=== PATIENT | female | born 1945 | race Caucasian/White ===

== ENCOUNTER 2021-07-07 09:07 | Outpatient (CLI) | payer MEDICARE, SELFPAY ==
--- NOTE | ~2021-07-07 | PE_ITS ---
EXAMINATION: PET skull to mid thigh DATE: 07/07/2021 11:28 INDICATION: Pulmonary nodules. TECHNIQUE: Blood glucose level was 82 mg/dL. 8.257 mCi of 18-fluorodeoxyglucose (18-FDG) was administ ered i.v. Low dose computed tomography (CT) images were acquired from the base of the brain to the pr oximal thighs for attenuation correction and anatomic localization. Automated exposure control was em ployed. Dose-length product (DLP) was 933 mGy-cm. Positron emission tomography (PET) images were acqu ired in the same distribution. COMPARISON: None FINDINGS: Head/neck: There are no pathologically enlarged lymph nodes. There is increased activity in the oral cavity, oropharynx, and major salivary glands without abnormal CT correlate, likely physiologic. Chest: There is mild emphysema. There is mild scarring at the lung apices. There is a 9 mm nodule in posterior segment right upper lobe with maximum SUV of 2.3. There is a 9 mm nodule with background ac tivity in right upper lobe, probably benign. No pleural effusion. The heart size is normal. There are coronary artery calcifications. No pericardial effusion. There is a stent in proximal right subclavi an artery. There may be a stent in proximal left subclavian artery. Abdomen/pelvis/proximal thighs: The liver and spleen are normal. There are changes of cholecystectomy . The pancreas, adrenal glands, and right kidney are normal. There is a 10 mm cyst in left kidney. Th ere are no dilated loops of bowel. There is diverticulosis of the colon without evidence of diverticu litis. There are no pathologically enlarged lymph nodes. There is no free intraperitoneal fluid. Ther e is a right hip arthroplasty. IMPRESSION: 1. 9 mm right upper lobe pulmonary nodule with maximum SUV of 2.3, which is indeterminate for malign elise. Consider CT-guided biopsy or 3-month follow-up noncontrast chest CT. Reviewed, dictated and finalized at location A. IMPRESSION: 1. 9 mm right upper lobe pulmonary nodule with maximum SUV of 2.3, which is in determinate for malignancy. Consider CT-guided biopsy or 3-month follow-up nonc ontrast chest CT.
[2021-07-07 10:00] LABS: Glucose Point of Care 82 mg/dl (65-105)
== END 2021-07-07 09:08 | disposition home or self-care (01) ==
PROVIDERS: PCP Internal Medicine
DX: R91.8 Other nonspecific abnormal finding of lung field (principal)
CPT/HCPCS: 78815; A9552

== ENCOUNTER 2021-07-08 14:41 | Outpatient (CLI) | payer MEDICARE, SELFPAY ==
[2021-07-08 15:04] LABS: Basophils Percent Auto 0.4 % (0.2-1.2); Eosinophils Absolute Auto 0.2 K/mm3 (0-0.3); Eosinophils Percent Auto 2.5 % (0-4.4); Hematocrit 26.1 % (37.0-47.0); Hemoglobin 7.9 g/dL (12.0-15.0); Immature Granulocyte Absolute 0.03 K/mm3 (0.00-0.031); Immature Granulocyte Percent A 0.4 % (0-0.5); Lymphocytes Absolute Auto 2.11 K/mm3 (0.9-3.2); Lymphocytes Percent Auto 27.3 % (18.3-44.2); Mean Corpuscular HGB Conc 30.3 g/dl (32-36); Mean Corpuscular Hemoglobin 29.9 pg (26-34); Mean Corpuscular Volume 98.9 fl (80-100); Mean Platelet Volume 10.3 fl (7.4-10.4); Monocytes Absolute Auto 0.7 K/mm3 (0.1-0.6); Monocytes Percent Auto 8.4 % (2.6-8.5); Neutrophils Absolute Auto 4.7 K/mm3 (1.3-6.7); Platelet Count Result 337 k/mm3 (150-375); Red Blood Count 2.64 M/mm3 (4.2-5.4); White Blood Count 7.7 K/mm3 (4.5-10.0)
[2021-07-08 16:10] LABS: Iron 55 ug/dL (37-170)
[2021-07-08 16:16] LABS: Alanine Aminotransferase 14 U/L (4-35); Albumin Level 4.4 g/dL (3.5-5.1); Alkaline Phosphatase 79 U/L (38-126); Anion Gap 10 mmol/L (8-16); Aspartate Amino Transferase 44 U/L (14-36); Bilirubin,Total 0.4 mg/dL (0.2-1.3); Blood Urea Nitrogen 17 mg/dL (7-17); Calcium 9.1 mg/dL (8.4-10.2); Carbon Dioxide 29 mmol/L (22-30); Chloride 105 mmol/L (98-107); Estimated Glomerular Filt Rate 49; Glucose 101 mg/dL (65-110); Lactate Dehydrogenase 484 U/L (313-618); Potassium 4.4 mmol/L (3.4-5.0); Sodium 144 mmol/L (137-145)
[2021-07-08 16:19] LABS: Percent Iron Saturation 16 % (20-50)
[2021-07-08 17:20] LABS: Folic Acid 15.9 ng/mL (2.76->20)
== END 2021-07-08 14:42 | disposition home or self-care (01) ==
LOC: ANHLAB 14:47
PROVIDERS: PCP Internal Medicine; Visit Provider Internal Medicine Hematology & Oncology
DX: D64.9 Anemia, unspecified (principal)
CPT/HCPCS: 36415; 80053; 82607; 82728; 82746; 83540; 83550; 83615; 85025

== ENCOUNTER 2021-09-20 10:32 | Outpatient (CLI) | payer MEDICARE, SELFPAY ==
--- NOTE | ~2021-09-20 | CT_ITS ---
EXAMINATION: CT diagnostic chest wo con DATE: 09/20/2021 10:58 INDICATION: Lung nodule TECHNIQUE: Computed tomography (CT) of the chest was performed without intravenous contrast. The dose -length product (DLP) was 129.84 mGy-cm. Automated exposure control and iterative reconstruction tech [employer] Managementque were employed. COMPARISON: PET/CT, 07/07/2021 FINDINGS: There is a persistent 10 mm nodule in the posterior segment of the right upper lobe on imag e 29. Also seen is a stable 9 mm pleural-based nodule of the posterior medial right upper lobe on michael ge 32. There is mild emphysema. No pleural effusion or pneumothorax is identified. The heart size is normal. There are no pathologically enlarged thoracic lymph nodes. Trace pericardial effusion is note d. The gallbladder is surgically absent. Calcified atherosclerosis is noted. There is mild thoracic s pondylosis. IMPRESSION: 1. Persistent nodule in the posterior segment of the right upper lobe which demonstrated low FDG upta ke on recent PET/CT. CT-guided biopsy is recommended. Reviewed, dictated and finalized at location A. NESS OBJECTS REPORT DEVELOPER IMPRESSION: 1. Persistent nodule in the posterior segment of the right upper lobe which dem onstrated low FDG uptake on recent PET/CT. CT-guided biopsy is recommended.
== END 2021-09-20 10:33 | disposition home or self-care (01) ==
LOC: ANHIMG 10:35
PROVIDERS: PCP Internal Medicine; Visit Provider Internal Medicine Hematology & Oncology
DX: R91.1 Solitary pulmonary nodule (principal); M47.814 Spondylosis without myelopathy or radiculopathy, thoracic region
CPT/HCPCS: 71250

== ENCOUNTER → 2021-10-01 00:21 | Outpatient (CLI) | payer MEDICARE, SELFPAY ==
[2021-10-01 17:23] LABS: SARS-CoV-2 RNA PCR Negative (Negative)
== END ==
PROVIDERS: Radiology Diagnostic Radiology; PCP Internal Medicine; Visit Provider Internal Medicine Hematology & Oncology
DX: Z01.812 Encounter for preprocedural laboratory examination (principal); Z20.822 Contact with and (suspected) exposure to COVID-19
CPT/HCPCS: C9803; U0003; U0005

== ENCOUNTER 2021-10-04 09:08 | Outpatient (CLI) | payer MEDICARE, SELFPAY ==
[2021-09-28 12:03] VITALS: BMI 30.4
--- NOTE | 2021-09-28 12:10 | PC.NURSE ---
Report to the Outpatient Waiting Room, entrance under the green pavilion located off [facility], at time _0900 on date _10/04/21 . OR Time: __1100 . - You and your visitor will be asked a series of questions to screen for COVID 19 for your protection. - A mask is required within the hospital. - Only one visitor is allowed at this time. Patient visitors will be guided where to wait when not with patient. Preoperative COVID Testing Requirements: No COVID Test needed if: (proof is required; if not received patient will have Rapid Test prior to entry) - Patient has received COVID Vaccine at least 14 days prior to procedure date or COVID TESTING 10/01/21 AT 0950 - Patient has positive COVID test result within last 90 days of surgery date. COVID Test needed if above criteria is not met If not COVID vaccinated a COVID test must be conducted within 72 hours of surgery and patient is asked to isolate self from time of testing until procedure. You will go to the [facility] for your COVID testing. The [facility] site is located at the corner of [address] [facility]. You will only be called if COVID results are positive and your surgeon may reschedule your elective surgery date. Patients may have clear liquids (water, carbonated beverages, clear teas, apple juice) until 3 hours prior to surgery with a maximum of 20 ounces. - No food from midnight until time of surgery - Infants may have breast milk until 4 hours before surgery, infant formula 6 hours prior to surgery. - Children will be allowed to drink immediately following surgery. If applicable, please bring a bottle or sippy cup to assist with drinking. Juice, water, soda, and popsicles are readily available. For infants on formula, please bring formula the day of surgery. Pacifiers are allowed. Take the following medications with a SIP of water the morning of surgery: __ALL ROUTINE AM MEDS Medications to discontinue per physician ___ASPIRIN STOP 7 DAYS PRE OP AND PLAVIX 5 DAYS PRE OP Date to take last dose Please no make-up, nail ethiopian, hairspray, perfume, deodorant, or body powder the day of surgery. No jewelry (including any body piercings) or valuables the day of surgery, leave them at home. Please take a shower or bath the night before, or the morning of, surgery with an antibacterial soap. Wear comfortable, loose fitting clothing. Children are encouraged to wear pajamas. - Jewelry must be removed prior to entering the operating room. Rings and piercings that are not removed may be cut off. - The hospital will not accept responsibility for valuables. - Please leave all valuables, including medications, at home the day of surgery. If you are going home after surgery, a licensed special education bus driver must drive you home. - NO public transportation without another adult. - We recommend that an adult stay with you for 24 hours following discharge. - We also recommend that you do not drive, make important decision, drink alcoholic beverages, or take any drugs that were not prescribed by your health care provider for at least 24 hours after your discharge time. For Pediatric surgeries, we recommend two adults accompany the child home (only one inside the building at this time). Follow any additional instructions given to you from your surgeon. Telephone instructions given to _PATIENT and asked if any additional questions and then verbalized understanding. Patient advised to call surgeon office or pre surgery nurse liaison [phone] if any additional questions.
[2021-10-04] VITALS (11 sets, daily range): BP systolic 125–151; BP diastolic 37–88; PULSE 73–87; RESP 20; TEMP 36.4–36.6; O2SAT 94–100
--- NOTE | ~2021-10-04 | XR_ITS ---
EXAMINATION: XR chest 1V DATE: 10/04/2021 12:23 INDICATION: Right lung nodule status post percutaneous biopsy. TECHNIQUE: A single frontal view of the chest was obtained. COMPARISON: Chest CT 09/20/2021 FINDINGS: There is a nodule in right upper lobe. No pleural effusion or pneumothorax. The heart size is normal. IMPRESSION: 1. Nodule in right lung upper lobe, consistent with postbiopsy hemorrhage. Reviewed, dictated and finalized at location A. RVISOR POLISHING
--- NOTE | ~2021-10-04 | XR_ITS ---
EXAMINATION: XR chest 1V portable DATE: 10/04/2021 15:04 INDICATION: Right lung nodule status post percutaneous biopsy. TECHNIQUE: A single frontal view of the chest was obtained. COMPARISON: Chest single view at 2:03 PM FINDINGS: There is a nodule in right lung upper lobe. No pleural effusion or pneumothorax. The heart size is normal. Surgical clips in the right upper quadrant are likely from cholecystectomy. IMPRESSION: 1. Nodule in right lung upper lobe, consistent with postbiopsy hemorrhage. Reviewed, dictated and finalized at location A. TRONICS PROCESSING SUPERVISOR
--- NOTE | ~2021-10-04 | XR_ITS ---
XR chest 1V portable 10/04/2021 14:19 Indication: Post image guided lung biopsy Procedure: AP portable chest Comparison: Chest dated 10/04/[address] dated 09/20/2021 Findings: There is a nodule in the right upper lobe. Heart size upper normal for technique. There is atherosclerosis. No pneumothorax identified. No significant effusion. Impression: 1: No pneumothorax post biopsy. 2: Ill-defined nodule right upper thorax, consistent with postbiopsy hemorrhage. Reviewed, dictated and finalized at location A. MA HAT SMEARER Impression: 1: No pneumothorax post biopsy. 2: Ill-defined nodule right upper thorax, consistent with postbiopsy hemorrhage .
--- NOTE | ~2021-10-04 | CT_ITS ---
EXAMINATION: CT biopsy lung w/imaging DATE: 10/04/2021 12:38 INDICATION: Right lung nodule. TECHNIQUE: The procedure including the risks, benefits, and alternatives and possibility of chest tub e placement were discussed with the patient. Risks discussed included infection, approximately 1/20 r isk of symptomatic hemorrhage beyond mild hemoptysis, approximately 1/3 risk of pneumothorax, approxi mately 1/10 risk of pneumothorax severe enough to warrant chest tube placement, and rarely . The patient understood the risks and agreed to proceed. The patient was placed prone. The skin overlyin g the right chest was prepped and draped in sterile fashion. Anesthetic was administered with 1% lid ocaine subcutaneously. A 19 gauge outer needle was advanced under CT guidance to the lesion of inter est. A 20 gauge core biopsy needle was then used to obtain 3 core biopsy specimens. The needle was re moved and the entry site was cleaned and dressed. The mA was adjusted according to patient size. Iter ative reconstruction technique was employed. The dose-length product was 146.31 mGy-cm. There were n o immediate complications. FINDINGS: CT images demonstrate the outer needle tip adjacent to an 11 mm nodule in right lung upper lobe. IMPRESSION: 1. CT-guided core needle biopsy of a nodule in right lung upper lobe. Reviewed, dictated and finalized at location A. ENGINEER
[2021-10-04 10:22] LABS: Mean Platelet Volume 10.1 fl (7.4-10.4); Platelet Count Result 335 k/mm3 (150-375)
[2021-10-04 11:03] LABS: INR 0.9; Prothrombin Time 12.5 Seconds (11.1-14.7)
--- NOTE | 2021-10-04 15:15 | SUR.PHASEII ---
PER DR FERREIRA SECOND XRAY RESULTED AND PATIENT IS SAFE TO DISCHARGE
== END 2021-10-04 15:40 | disposition home or self-care (01) ==
PROVIDERS: PCP Internal Medicine; Visit Provider Radiology Diagnostic Radiology
PROC: BB24ZZZ Computerized Tomography (CT Scan) of Bilateral Lungs (ICD-10-PCS; CPT 32408; principal; 2021-10-04 11:00)
DX: C34.11 Malignant neoplasm of upper lobe, right bronchus or lung (principal); R91.1 Solitary pulmonary nodule; Z51.81 Encounter for therapeutic drug level monitoring; Z79.899 Other long term (current) drug therapy
CPT/HCPCS: 32408; 36415; 71045; 85049; 85610; 88305; 88342; C9803; U0003; U0005

== ENCOUNTER 2022-05-18 10:39 | Outpatient (CLI) | payer MEDICARE, SELFPAY ==
--- NOTE | ~2022-05-18 | PE_ITS ---
EXAMINATION: PET skull to mid thigh DATE: 05/18/2022 12:32 INDICATION: Malignant neoplasm of upper lobe of right lung. TECHNIQUE: Blood glucose level was 101 mg/dL. 9.111 mCi of 18-fluorodeoxyglucose (18-FDG) was adminis tered i.v. Low dose computed tomography (CT) images were acquired from the base of the brain to the p roximal thighs for attenuation correction and anatomic localization. Automated exposure control was e mployed. Dose-length product (DLP) was 756 mGy-cm. Positron emission tomography (PET) images were acq uired in the same distribution. COMPARISON: PET CT 07/07/2021, chest CT 09/20/2021 FINDINGS: Head/neck: There is increased activity in the oropharynx, larynx, and major salivary glands with joleen on artifact at the glottis, likely physiologic. There are no pathologically enlarged lymph nodes. Chest: There are changes of right upper lobectomy. There is mild atelectasis in right middle lobe and lingula. No pleural effusion. The heart size is normal. No pericardial effusion. There is a stent in proximal right subclavian artery. There are no pathologically enlarged lymph nodes. Abdomen/pelvis/proximal thighs: There is diffuse hepatic steatosis. The spleen is normal. There are c hanges of cholecystectomy. The pancreas, adrenal glands, and kidneys are normal. There are no dilated loops of bowel. There are no pathologically enlarged lymph nodes. There is no free intraperitoneal f luid. There is a right hip arthroplasty. There is no osseous malignancy. IMPRESSION: 1. No evidence of metastatic disease. Reviewed, dictated and finalized at location A.
[2022-05-18 11:14] LABS: Glucose Point of Care 101 mg/dl (65-105)
== END 2022-05-18 10:40 | disposition home or self-care (01) ==
PROVIDERS: PCP Internal Medicine; Visit Provider Internal Medicine Hematology & Oncology
DX: Z03.89 Encounter for observation for other suspected diseases and conditions ruled out (principal); C34.11 Malignant neoplasm of upper lobe, right bronchus or lung; K76.0 Fatty (change of) liver, not elsewhere classified
CPT/HCPCS: 78815; A9552

== ENCOUNTER 2024-05-12 13:02 | Outpatient (CLI) | payer MEDICARE, SELFPAY ==
--- NOTE | ~2024-05-12 | CT_ITS ---
EXAMINATION: CT diagnostic chest wo con DATE: 05/12/2024 13:46 INDICATION: MALIGNANT NEOPLASM OF UPPER LOBE OF RIGHT LUNG TECHNIQUE: Computed tomography (CT) of the chest was performed right upper lobe lung cancer intraveno us contrast. Additional 3D reconstructions utilizing coronal maximum intensity projection (MIP) were performed. Automated exposure control and iterative reconstruction technique were employed. The dose- length product was 202.30 mGy-cm. COMPARISON: PET/CT dated 05/18/2022 FINDINGS: Postoperative change of prior right upper lobectomy. There is chronic mild discoid atelectasis in the right middle lobe along the minor fissure. No suspicious pulmonary nodules, pneumonia, pulmonary bhumika ma or pleural effusion. Heart size is normal. Atherosclerotic coronary artery calcifications. No donna cardial effusion. Prominent atherosclerotic calcifications along the normal caliber thoracic aorta wi th approximately 40 % stenosis along the mid descending aorta, 50% stenosis at the innominate artery and 60% stenosis at the left subclavian artery. Assessment of the true patent lumen is however limite d in the absence of intravenous contrast and stenosis could be more severe. Stenting of the right sub clavian artery. No pathologically enlarged thoracic lymphadenopathy. Cholecystectomy clips the gallbl adder fossa. Visualized upper abdomen is otherwise unremarkable. Moderate thoracic spondylosis. IMPRESSION: 1. Status post right upper lobectomy for reported lung cancer with no evident residual, recurrent or metastatic disease. 2. Prominent atherosclerotic calcifications with potentially hemodynamically significant stenosis at the mid thoracic aorta, innominate artery and left subclavian artery. Reviewed, dictated and finalized at location A. IMPRESSION: 1. Status post right upper lobectomy for reported lung cancer with no evident r esidual, recurrent or metastatic disease. 2. Prominent atherosclerotic calcifications with potentially hemodynamically si gnificant stenosis at the mid thoracic aorta, innominate artery and left subcla vian artery.
[2024-05-12 14:43] LABS: Basophils Absolute Auto 0.1 K/mm3 (0.0-0.1); Basophils Percent Auto 0.5 % (0.2-1.2); Eosinophils Absolute Auto 0.3 K/mm3 (0-0.3); Eosinophils Percent Auto 2.6 % (0-4.4); Hematocrit 34.5 % (37.0-47.0); Hemoglobin 10.8 g/dL (12.0-15.0); Immature Granulocyte Absolute 0.06 K/mm3 (0.00-0.031); Immature Granulocyte Percent A 0.6 % (0-0.5); Lymphocytes Absolute Auto 2.36 K/mm3 (0.9-3.2); Lymphocytes Percent Auto 22.3 % (18.3-44.2); Mean Corpuscular HGB Conc 31.3 g/dl (32-36); Mean Corpuscular Hemoglobin 31.6 pg (26-34); Mean Corpuscular Volume 100.9 fl (80-100); Monocytes Absolute Auto 0.8 K/mm3 (0.1-0.6); Monocytes Percent Auto 7.6 % (2.6-8.5); Neutrophils Percent Auto 66.4 % (45.5-73.1); Platelet Count Result 380 k/mm3 (150-375); Red Blood Count 3.42 M/mm3 (4.2-5.4); Red Cell Distribution Width 12.2 % (11.5-14.5); White Blood Count 10.6 K/mm3 (4.5-10.0)
[2024-05-12 14:57] LABS: Alanine Aminotransferase 14 U/L (6-35); Albumin Level 4.8 g/dL (3.5-5.1); Alkaline Phosphatase 62 U/L (38-126); Anion Gap 14 mmol/L (4-12); Aspartate Amino Transferase 36 U/L (14-36); Bilirubin,Total 0.8 mg/dL (0.2-1.3); Blood Urea Nitrogen 50 mg/dL (7-17); Calcium 9.1 mg/dL (8.4-10.2); Carbon Dioxide 29 mmol/L (22-30); Chloride 98 mmol/L (98-107); Estimated Glomerular Filt Rate 31; Glucose 89 mg/dL (65-110); Potassium 4.4 mmol/L (3.4-5.0); Sodium 141 mmol/L (137-145)
[2024-05-12 15:11] LABS: Iron 85 ug/dL (37-170)
[2024-05-12 15:22] LABS: Percent Iron Saturation 24 % (20-50)
[2024-05-12 16:12] LABS: Folic Acid 15.7 ng/mL (2.76->20)
== END 2024-05-12 13:03 | disposition home or self-care (01) ==
PROVIDERS: PCP Internal Medicine; Visit Provider Internal Medicine Hematology & Oncology
DX: C34.11 Malignant neoplasm of upper lobe, right bronchus or lung (principal); N18.32 Chronic kidney disease, stage 3b; D63.1 Anemia in chronic kidney disease; I70.0 Atherosclerosis of aorta; Z90.2 Acquired absence of lung [part of]
CPT/HCPCS: 36415; 71250; 80053; 82607; 82728; 82746; 83540; 83550; 85025

== ENCOUNTER 2024-11-24 11:05 | Outpatient (CLI) | payer MEDICARE, SELFPAY ==
--- NOTE | ~2024-11-24 | CT_ITS ---
CT Scan of the Chest without Contrast: Clinical Indication: Lung cancer Technique: Contiguous sections were acquired throughout the chest without intravenous contrast. Dose reduction technique was used on this scan by utilizing automated exposure control and iterative recon struction technique. The dose-length product (DLP) was 387.75 mGy-cm. COMPARISON: 05/12/2024 Findings: There is no evidence of any significant mediastinal, hilar or axillary lymphadenopathy. There are ext ensive atherosclerotic calcifications of the aorta and great vessels. Coronary artery calcifications are present.. No pleural effusions. Minimal pericardial effusion present. Status post right upper lobectomy with mild postoperative distortion the right lung. No suspicious no dule seen. No consolidation evident. Images through the upper abdomen reveal no abnormalities. Impression: No evidence for active malignancy or metastatic disease. Status post right upper lobectomy. Extensive atherosclerotic disease, as above. Minimal pericardial effusion. Reviewed, dictated and finalized at [facility]. K MANAGER Impression: No evidence for active malignancy or metastatic disease. Status post right uppe r lobectomy. Extensive atherosclerotic disease, as above. Minimal pericardial effusion.
--- OUTSIDE RECORDS SUMMARY | 2024-11-24 12:04 | XMS_ITS | Clinical Summary ---
Author Organization [facility] Address [address] [place] [address] Care Team Providers Care Pantograph I Engraver Name Role Phone Unavailable Primary Care Provider Unavailabl e Source Comments [facility],non-owned Affiliates and Associated Physician Practices is amultiple site organization consisting of ambulatory clinics and hospital sitesin [place] and [place]. This disclosure is being madepursuant to the Care Everywhere program and may not contain all information available regarding this patient. Last updated 18.[facility] Allergies Active Allergy Reactions Criticality Noted Date Comments Acetaminophen-Codeine Nausea and/or Vomiting vomiting Medications * Be aware that medications may not be up to date on this document. Alwaysverify current medications with the patient. Medication Sig Dispensed Refills Start Date End Date Status metoprolol tartrate (LOPRESSOR) 25 MG tablet 25 mg 2 times daily 08/05/2018 Active Cholecalciferol (D-5000) 5000 units Take 5,000 Units by mouth once daily 02/26/2017 Active loratadine (CLARITIN) 10 MG tablet Take 10 mg by mouth once daily 02/22/2017 Active aspirin (ASPIRIN) 81 MG tablet Take 81 mg by mouth once daily Active amLODIPine (NORVASC) 5 MG tablet Take 1 tablet by mouth once daily 11 06/28/2019 Active clopidogrel (PLAVIX) 75 MG tablet TAKE 1 TABLET BY MOUTH EVERY DAY 90 tablet 06/07/2020 Active Active Problems Problem Noted Date Diagnosed Date Stenosis of left subclavian artery 06/26/2019 Family History Medical History Relation Name Comments Renal Disease Brother CAD (Coronary Artery Disease) Father CVA Father CAD (Coronary Artery Disease) Mother CVA Mother Diabetes - Type 2 Mother Other Mother heart attack/fa ilure Relation Name Status Comments Brother Father Mother Social History Tobacco Use Types Packs/Day Years Used Date Smoking Tobacco: Former Smokeless Tobacco: Never Alcohol Use Standard Drinks/Week Comments Never 0 (1 standard drink = 0.6 oz pur e alcohol) AUDIT-C Answer Date Recorded Frequency of Alcohol Consumption Never 06/11/2019 Average Number of Drinks Not on file 019 Frequency of Binge Drinking Not on file 05/16 Sex and Gender Information Value Date Recorded Sex Assigned at Not on file Gender Identity Not on file Sexual Orientation Not on file Last Filed Vital Signs Vital Sign Reading Time Taken Comments Blood Pressure 139/52 06/27/2019 9:07 AM CDT Pulse 85 06/27/2019 9:07 AM CDT Temperature 37.1 C (98.7 F) 06/27/2019 8:57 AM CDT Respiratory Rate 20 06/27/2019 8:57 AM CDT Oxygen Saturation 95% 06/27/2019 8:57 AM CDT Inhaled Oxygen Concentration - - Weight 81.2 kg (179 lb) 07/10/2019 12:19 PM CDT Height 160 cm (5' 3 ) 07/10/2019 12:19 PM CDT Body Mass Index 31.71 07/10/2019 12:19 PM CDT Plan of Treatment Health Maintenance Due Date Last Done Comments BONE DENSITY TESTING 1945 HEPATITIS C SCREENING 03/03/1965 DTAP/TDAP/TD VACCINES (1 - Tdap) 1966 PNEUMOCOCCAL VACCINE 50+ (1 of 1 - PCV) 1997 ZOSTER VACCINE (1 of 2) 1997 Respiratory Syncytial Virus (RSV) Vaccine Pt: or over 60 yrs (1 - 1-dose 75+ series) 2022 COVID-19 VACCINE ( - 2023-2 5 season) 2024 INFLUENZA VACCINE (#1) 2024 DEPRESSION SCREENING 10/15/2024 MEDICARE AWV CALENDAR YEAR 2024 HEPATITIS B VACCINE Aged Out No longe r eligible based on patient's age to complete this topic HIB VACCINE Aged Out No longer eligi ble based on patient's age to complete this topic HPV VACCINE Aged Out No longer eligi ble based on patient's age to complete this topic MENINGOCOCCAL (Group B) VACCINE Aged Out No longer eligible based on patient's age to complete this topic MENINGOCOCCAL VACCINE Aged Out No vee harmony eligible based on patient's age to complete this topic
--- OUTSIDE RECORDS SUMMARY | 2024-11-24 12:04 | XMS_ITS | Patient Health Summary ---
Author Organization [facility] Address [address] [place] [address] Care Team Providers Care Automatic Hemmer Name Role Phone Unavailable Primary Care Provider Unavailabl e Note from [facility],non-owned Affiliates and Associated Physician Practices is amultiple site organization consisting of ambulatory clinics and hospital sitesin [place], [place], [place] and [place]. This disclosure is being madepursuant to the Care Everywhere program and may not contain all information available regarding this patient. Last updated 18.[facility] Allergies * Acetaminophen-Codeine(Nausea and/or Vomiting) Medications * Be aware that medications may not be up to date on this document. Alwaysverify current medications with the patient. * metoprolol tartrate (LOPRESSOR) 25 MG tablet(Started 08/05/2018) 25 mg 2 times daily * Cholecalciferol (D-5000) 5000 units(Started 02/26/2017) Take 5,000 Units by mouth once daily * loratadine (CLARITIN) 10 MG tablet(Started 02/22/2017) Take 10 mg by mouth once daily * aspirin (ASPIRIN) 81 MG tablet Take 81 mg by mouth once daily * amLODIPine (NORVASC) 5 MG tablet(Started 06/28/2019) Take 1 tablet by mouth once daily 11 refills left * clopidogrel (PLAVIX) 75 MG tablet(Started 06/07/2020) TAKE 1 TABLET BY MOUTH EVERY DAY Active Problems Problem Noted Date Diagnosed Date Stenosis of left subclavian artery 06/26/2019 Social History Tobacco Use Types Packs/Day Years [...] Mass Index 31.71 07/10/2019 12:19 PM CDT Procedures * CARDIAC RHYTHM STRIP ORDER(Performed 06/30/2019) * IR CAROTID CEREBRAL ANGIOGRAM(Performed 06/26/2019) Performed for Stenosis of left subclavian artery (HCC) * PT-INR(Performed 06/26/2019) Performed for Stenosis of left subclavian artery (HCC) * BASIC METABOLIC PANEL (CALCIUM TOTAL)(Performed 06/26/2019) Performed for Stenosis of left subclavian artery (HCC) * CBC W AUTO DIFFERENTIAL(Performed 06/26/2019) Performed for Stenosis of left subclavian artery (HCC) Results * CARDIAC RHYTHM STRIP ORDER (06/30/2019 4:22 PM CDT) Narrative 06/30/2019 4:22 PM CDT Ordered by an unspecified provider. Scanned Document CARDIAC SERVICES ORD ERABLES * IR CAROTID CEREBRAL ANGIOGRAM (06/26/2019 11:21 AM CDT) Anatomical Region Laterality Modality Head X-Ray Angiograph y Narrative 06/30/2019 3:23 PM CDT No Dictation. Boo Castanon MD IR ORDERABLES * PT-INR (06/26/2019 8:52 AM CDT) PT 10.0 9.5 - 11.6 sec 06/26/2019 9:17 AM CDT [facility] INR 1.0 0.9 - 1.1 06/26/2019 9:17 AM CDT [facility] Blood BLOOD SPECIMEN / Unknown Venipuncture / Unknown 06/26/2019 8:52 AM CDT 06/26/2019 9:01 AM CDT [facility] LABORATORY - 06/26/2019 9:17 AM CDT Conventional Warfarin Anticoagulant Therapy: INR Reference Range: 2.0-3.0 Intensive Warfarin Anticoagulant Therapy: INR Reference Range: 2.5-3.5 Boo Castanon MD LAB - COAGULATION OR DERABLES Performing Organization Address City/State/[facility] Co de Phone Number [facility] [address] [place] [address] * (ABNORMAL) CBC W AUTO DIFFERENTIAL (06/26/2019 8:52 AM CDT) [facility] WBC 7.6 4.4 - 10.7 x10E9/L 06/26/2019 9:05 AM T [facility] WBC Corrected 06/26/2019 9:05 AM T [facility] RBC 3.78(L) 3.80 - 5.20 x10E12/L 06/26/2019 9:05 AM CDT [facility] Hemoglobin 11.3(L) 12.0 - 15.6 gm/dL 06/26/2019 9:05 AM T [facility] Hematocrit 37.2 35.9 - 45.5 % 06/26/2019 9:05 AM CDT [facility] MCV 98.4(H) 80.7 - 98.3 fl 06/26/2019 9:05 AM CDT [facility] MCH 29.9 26.7 - 34.0 pg 06/26/2019 9:05 AM CDT [facility] MCHC 30.4(L) 30.8 - 35.9 gm/dL 06/26/2019 9:05 AM CDT [facility] Platelet Count 284 153 - 416 x10E9/L 06/26/2019 9:05 AM CDT [facility] RDW-CV 12.3 12.1 - 14.9 % 06/26/2019 9:05 AM CDT [facility] MPV 10.1 9.4 - 12.9 fl 06/26/2019 9:05 AM CDT [facility] Neutrophils % 63.8 44.0 - 73.0 % 06/26/2019 9:05 AM CDT [facility] Lymphocytes % 22.8 20.0 - 43.0 % 06/26/2019 9:05 AM CDT [facility] Monocytes % 8.5 5.0 - 13.0 % 06/26/2019 9:05 AM CDT [facility] Eosinophils % 4.1 0.0 - 6.0 % 06/26/2019 9:05 AM CDT [facility] Basophils % 0.5 0.0 - 2.0 % 06/26/2019 9:05 AM CDT [facility] Immature Granulocytes 0.3 0 - 1 % 06/26/2019 9:05 AM CDT [facility] Neutrophil Absolute 4.86 2.01 - 7.14 x10E9/L 06/26/2019 9:05 AM CDT [facility] Lymphocytes Absolute 1.74 1.07 - 3.94 x10E9/L 06/26/2019 9:05 AM CDT [facility] Monocytes Absolute 0.65 0.26 - 1.07 x10E9/L 06/26/2019 9:05 AM CDT [facility] Eosinophils Absolute 0.31 0 - 0.47 x10E9/L 06/26/2019 9:05 AM CDT [facility] Basophils Absolute 0.04 0 - 0.08 x10E9/L 06/26/2019 9:05 AM CDT [facility] Immature Granulocytes Absolute 0.02 0.00 - 0.06 x10E9/L 06/26/2019 9:05 AM CDT [facility] nRBC Auto 0 /100 WBC 06/26/2019 9:05 AM CDT [facility] Blood BLOOD SPECIMEN / Unknown Venipuncture / Unknown 06/26/2019 8:52 AM CDT 06/26/2019 9:01 AM CDT Boo Castanon MD LAB - HEMATOLOGY ORD ERABLES [facility] [address] [place] [address] * (ABNORMAL) BASIC METABOLIC PANEL (CALCIUM TOTAL) (06/26/2019 8:52 AM CDT) Glucose 103 74 - 106 mg/dL 06/26/2019 9:26 AM CDT [facility] Sodium 141 136 - 145 mmol/L 06/26/2019 9:26 AM CDT [facility] Potassium 4.5 3.5 - 5.1 mmol/L 06/26/2019 9:26 AM CDT [facility] Chloride 104 98 - 107 mmol/L 06/26/2019 9:26 AM CDT [facility] CO2 26 23 - 31 mmol/L 06/26/2019 9:26 AM CDT [facility] Calcium 9.9 8.4 - 10.2 mg/dL 06/26/2019 9:26 AM CDT [facility] Anion Gap 11 8 - 16 mmol/L 06/26/2019 9:26 AM CDT [facility] BUN 21(H) 9.8 - 20.1 mg/dL 06/26/2019 9:26 AM CDT [facility] Creatinine 0.95 0.55 - 1.02 mg/dL 06/26/2019 9:26 AM CDT [facility] eGFR by MDRD 58 mL/min/1.7 3m2 06/26/2019 9:26 AM CDT [facility] eGFR by MDRD >60 mL/min/1.7 3m2 06/26/2019 9:26 AM CDT [facility] Blood BLOOD SPECIMEN / Unknown Venipuncture / Unknown 06/26/2019 8:52 AM CDT 06/26/2019 9:01 AM CDT Boo Castanon MD LAB - CHEMISTRY [facility] Organization Address City/State/ZIP Co de Phone Number [facility] [address] [place] [address]
--- OUTSIDE RECORDS SUMMARY | 2024-11-24 12:04 | XMS_ITS | Clinical Summary ---
Demographics Address [address] [place] [address] Mobile Phone Home Phone Email Address Preferred Language Unknown Marital Status Anabaptist Affiliation Unknown Race White Ethnic Group Unknown Author Organization [facility] Julia Mccarthy Address [address] [place] [address] Care Team Providers Care Medical Appointment Clerk Name Role Phone Piter Mendoza MD Primary Care Provider Allergies Active Allergy Reactions Criticality Noted Date Comments Codeine Nausea and Vomiting Low 07/08/2021 Medications cilostazoL (PLETAL) 50 mg Tablet Take 50 mg by mouth. Active clopidogreL (PLAVIX) 75 mg Tablet Take 75 mg by mouth. Active metoprolol tartrate (LOPRESSOR) 25 mg tablet Take 25 mg by mouth 2 times daily. Active bempedoic acid (Nexletol) 180 mg Tablet Take by mouth. Active acetaminophen (TYLENOL) 325 mg tablet Take 325 mg by mouth every 4 hours as needed. Active allopurinoL (ZYLOPRIM) 100 mg tablet Take 100 mg by mouth daily. Active ergocalciferol (VITAMIN D2) 50,000 unit capsule Take 50,000 Units by mouth every 30 days. Active ferrous sulfate 325 mg (65 mg iron) tablet Take 325 mg by mouth daily. Active FOLIC ACID ORAL Take by mouth. Active albuterol sulfate 90 mcg/Actuation inhaler 09/26/2021 Active furosemide (LASIX) 20 mg tablet 09/27/2021 Active Breo Ellipta 100-25 mcg/dose Disk with Device 04/06/2022 Active gabapentin (NEURONTIN) 100 mg capsule Take 1 Capsule by mouth daily. 04/25/2024 Active Active Problems Problem Noted Date Diagnosed Date Carotid artery stenosis 12/01/2021 Malignant neoplasm of upper lobe of right lung 0 11/01/2021 Anemia of chronic renal failure, stage 3 (modera te) 07/08/2021 Acute respiratory failure with hypoxia COPD with exacerbation Resolved Problems Problem Noted Date Diagnosed Date Resolved Date Lung nodule 07/08/2021 11/01/2021 Encounters Date Type Department Care Team Description 11/05/2024 External Device Data STL ABSTRACTION Provider, Abstract 11/05/2024 External Device Data STL ABSTRACTION Provider, Abstract from Last 3 Months Family History Medical History Relation Name Comments Cervical Cancer Mother Cervical Cancer Sister 1 Cervical Cancer Sister 2 Relation Name Status Comments Brother 1 Brother 2 Brother 3 Alive Daughter 1 Daughter 2 Daughter 3 Father Mother Alive Sister 1 Alive Sister 2 Son Alive Social History Tobacco Use Types Packs/Day Years Used Date Smoking Tobacco: Former Cigarettes Q uit: 01/22/2004 Tobacco Cessation:Counseling Given: Not Answered Alcohol Use Standard Drinks/Week Comments Not Currently 0 (1 standard drink = 0.6 oz pur e alcohol) Comments No Sex and Gender Information Value Date Recorded Sex Assigned at Not on file Legal Sex Female 9:41 AM CDT Gender Identity Not on file Sexual Orientation Not on file Last Filed Vital Signs Vital Sign Reading Time Taken Comments Blood Pressure 135/54 05/23/2024 11:50 AM CDT Pulse 66 05/23/2024 11:50 AM CDT Temperature 36.7 C (98 F) 05/23/2024 11:50 AM CDT Respiratory Rate 20 05/23/2024 11:50 AM CDT Oxygen Saturation 94% 05/23/2024 11:50 AM CDT Inhaled Oxygen Concentration - - Weight 76.7 kg (169 lb) 05/23/2024 11:50 AM CDT Height 160.7 cm (5' 3.25 ) 06/09/2022 12:46 PM C DT Body Mass Index 29.7 06/09/2022 12:46 PM CDT Plan of Treatment Upcoming Encounters Date Type Department Care Team (Late st Contact Info) Description 12/02/2024 11:00 AM TECHNICAL APPLICATIONS SCIENTIST Office Visit [facility] Oncology and Hematology [facility] [address] [place] [id number] Jered Mckay MD [address] [facility] [address] [place] [address] Health Maintenance Due Date Last Done Comments DTAP/TDAP/TD VACCINES (1 - Tdap) 1966 PNEUMOCOCCAL VACCINE 65+ YEARS (1 of 2 - PCV) 03/08/19 66 ZOSTER VACCINE (1 of 2) 1997 OSTEOPOROSIS SCREENING 2012 RSV VACCINE (60+ or ) (1 - 1-dose 75+ series) 2022 INFLUENZA VACCINE (#1) 2024 Medical Devices Implanted Type Area Small Parts Shaper Operator Device Identifier Shelf Expiration Date Model / Serial / Lot Sealant Progel Pleural 4ml [id number] - [id number] Implanted:Qty : 1 on 12/01/2021 by Jaime Monsalve MD at [facility] Tissue N/A: Chest [employer] [id number] 03/14/2022 [id number] / / [id number] Subclavian Stent Subclavian Hardware Right: Hip Insurance [address] [address] [address] [address] * Guarantor: Magdalene Wang Account Type Relation to Patient Date of Phone Billing Address Personal/Family Self 1945 [address] [place] [address] RX [facility] Medicare Part D Advance Directives For more information, please contact: [phone] Documents on File Type Date Recorded Patient Night Warehouse Selector Expl anation Advance Directive POA 12/07/2021 3:26 PM A dvance Directive POA Advance Directive Living Will 12/02/2021 11:23 PM Advance Directive Living Will * NO CPR (In Event of Cardiopulmonary Arrest) (Latest Code Status on File) Date Activated Date Inactivated Comments 12/02/2021 2:54 AM 12/10/2021 10:34 PM Question Answer Comments Mechanical Ventilation (for respiratory distress) - Invasive (i.e. intubation): No Mechanical Ventilation (for respiratory distress) - Non-Invasive (i.e. BiPAP, CPAP): Yes Cardioversion - (Allow prior to Cardiopulmonary Arrest): Yes Vasopressors - (Allow prior to Cardiopulmonary A rrest): Yes Inotropic Agents - (Allow prior to Cardiopulmona ry Arrest): Yes External Pacing - (Allow prior to Cardiopulmonar y Arrest): Yes Invasive Monitoring - (Allow prior to Cardiopulm onary Arrest): Yes * Full Code Date Activated Date Inactivated Comments 12/01/2021 9:12 PM 12/02/2021 2:54 AM * Full Code Date Activated Date Inactivated Comments 12/01/2021 11:54 AM 12/01/2021 9:12 PM * Full Code Date Activated Date Inactivated Comments 12/01/2021 9:49 AM 12/01/2021 11:54 AM Care Teams Medical Appointment Clerk Relationship Specialty Start Date End Date Piter Mendoza MD PCP - General Internal Medicine 07/08/21
--- OUTSIDE RECORDS SUMMARY | 2024-11-24 12:04 | XMS_ITS ---
Author Organization [facility] Address [address] [place] [address] Care Team Providers Care Treatment Supervisor Name Role Phone Diallo Dayo Unavailable [phone] MEDICATIONS Medication SIG (Take, Route, Frequency, Duration) Notes Start Date End Date Status Vitamin D (Ergocalciferol) 1.25 MG (52733 UT) TAKE 1 CAPSULE BY MOUTH ONCE A MONTH for 90 Active Metoprolol Tartrate 25 MG 1 tablet with food Orally Twice a day Active Gabapentin 100 MG 1 capsule Orally Onc e a day for 30 day(s) 04/25/2024 Active Allopurinol 100 MG TAKE 1 TABLET BY REY TH ONCE DAILY for 90 Active Gabapentin 100 MG 1 capsule Orally Onc e a day for 90 days 04/25/2024 Active Furosemide 20 MG [...] 1 tablet Orally Once a day Active SOCIAL HISTORY Sex Assigned At : Social History Observation Description Sex Assigned At Female PROBLEMS Problem Type ICD Code Onset Dates Problem Status W/U Status Risk SNOMED Code Notes Problem Chronic kidney disease, stage 3a (N18.31) Active confirmed Chronic kidney disease stage 3A (disorder) (766141605) Encounters Encounter Location Date Provider Diagnosis [facility] [place] [facility] [address] [place] [employer] [id number] 08/08/2024 Dayo Landrum Chronic kidney disea se, stage 2 (mild) N18.2 ; Chronic kidney disease, stage 3a N18.31 ; Essential (primary) hypertension I10 ; Anemia, unspecified D64.9 ; Other proteinuria R80.8 ; Secondary hyperparathyroidism, not elsewhere classified E21.1 and Renal osteodystrophy N25.0 ASSESSMENTS Encounter Date Diagnosis Assessment Notes Treatment Notes Treatment Clinical Notes Section Notes 08/08/2024 Chronic kidney disease, stage 2 (mild) (ICD-10 - N18.2) 08/08/2024 Chronic kidney disease, stage 3a (ICD-10 - N18.31) 08/08/2024 Essential (primary) hypertension (ICD-10 - I10) 08/08/2024 Anemia, unspecified (ICD-10 - D64.9) 08/08/2024 Other proteinuria (ICD-10 - R80.8) 08/08/2024 Secondary hyperparathyroidism , not elsewhere classified (ICD-10 - E21.1) 08/08/2024 Renal osteodystrophy (ICD-10 - N25.0) PLAN OF TREATMENT Next Appt Details Provider Name:Dayo Landrum , 11/27/2024 01:45:00 PM, [address], [facility], Progress Notes * JULIANA HUMPHREYADOB:1945 (79 yo F)Acc No.[id number]:08/08/2024 Progress Notes Patient: ED HUMPHREY Provider: MD EVANGELINA, F.A.C.P, F.A.S.N. :1945 Age:79 Y Sex:Female Date:08/08/2024 Address:[address] [place] [address] Subjective: * Chief Complaints: * * Medical History: * Medications: Taking Nexletol 180 MG Tablet 1 tablet Orally [...] , Taking Vitamin D (Ergocalciferol) 1.25 MG (65213 UT) Capsule TAKE 1 CAPSULE BY MOUTH ONCE A MONTH , Taking Gabapentin 100 MG Capsule 1 capsule Orally Once a day , Taking Gabapentin 100 MG Capsule 1 capsule Orally Once a day , Taking Allopurinol 100 MG Tablet TAKE 1 TABLET BY MOUTH ONCE DAILY Objective: Assessment: * Assessment: 1. Chronic kidney disease, stage 2 (mild) - N18.2 (Primary) 2. Chronic kidney disease, stage 3a - N18.31 3. Essential (primary) hypertension - I10 4. Anemia, unspecified - D64.9 5. Other proteinuria - R80.8 6. Secondary hyperparathyroidism, not elsewhere classified - E21.1 7. Renal osteodystrophy - N25.0 Plan: * Treatment: * Billing Information: * Visit Code: 19715 Office Visit, Est Pt., Level 4. * Procedure Codes: * STRIAL ROOFER Sign off status: Pending * Provider: MD EVANGELINA, F.A.C.P, F.A.S.N. Date: 08/08/2024
--- OUTSIDE RECORDS SUMMARY | 2024-11-24 12:04 | XMS_ITS ---
Author Organization [facility] Address [address] [place] [address] Care Team Providers Care Critical Systems Technician Name Role Phone [email or web address] Unavailable [phone] MEDICATIONS Medication SIG (Take, Route, Frequency, Duration) Notes Start Date End Date Status Lasix 40 MG 1 tablet Orally twic e a day for 90 days 08/08/2024 02/04/2025 Active Allopurinol 200 MG 1 tablet Orally Once a day for 90 days 08/08/2024 08/03/2025 Active Cyclobenzaprine HCl 10 MG 1 tablet at be dtime as needed Orally Once a day for 30 days 08/08/2024 09/06/2024 Active SOCIAL HISTORY Sex Assigned At : Social History Observation Description Sex Assigned At Female Encounters Encounter Location Date Provider Diagnosis [facility] [place] [facility] [address] [place] [address] 08/08/2024 Dayo Landrum PLAN OF TREATMENT Medication Medication Name Sig Start Date Stop Date Notes Lasix 40 MG 1 tablet Orally twic e a day for 90 days 08/08/2024 02/04/2025 Allopurinol 200 MG 1 tablet Orally Once a day for 90 days 08/08/2024 08/03/2025 Cyclobenzaprine HCl 10 MG 1 tablet at be dtime as needed Orally Once a day for 30 days 08/08/2024 09/06/2024 Next Appt Details Provider Name:Dayo Landrum , 11/27/2024 01:45:00 PM, [address], [place], [address], Progress Notes * SHANIKA HUMPHREYB:1945 (79 yo F)Acc No.[id number]:08/08/2024 Patient: ED HUMPHREY :1945 Age:79 Y Sex:Female Address:[address] [place] [address] [place] [address] * Refills Start Allopurinol Tablet, 200 MG, Orally, 90 Tablet, 1 tablet, Once a day, 90 days, Refills=3 Start Lasix Tablet, 40 MG, Orally, 180 Tablet, 1 tablet, twice a day, 90 days, Refills=1 Start Cyclobenzaprine HCl Tablet, 10 MG, Orally, 30, 1 tablet at bedtime as needed, Once a day, 30 days * true * Date:
--- OUTSIDE RECORDS SUMMARY | 2024-11-24 12:04 | XMS_ITS | CONTINUITY OF CARE DOCUMENT ---
Author Name tomas marin Address Unknown Organization [facility] Address [address] [place] [address] Phone [phone] Care Team Providers Care Park Landscape Architect Name Role Phone Ben CHAPARRO, Bebo Unavailable OMERO CHAPARRO, JAQUAN Unavailable JAQUAN MENDOZA MD Unavailable PROBLEMS Condition Status Date Provider Notes Abnormal blood chemistry active Jerad Winn RN Prediabetes- hgb AIC 6.0 on 02/26/20 active Jerad Winn RN Exertional shortness of breath active Jerad vazquez RN Hyperkalemia active Bebo Contreras MD HTN essential active Bebo Contreras MD Subclavian artery stenosis, RN ENT of [facility], s/p MICK R 07/03 active Bebo Contreras MD Carotid artery stenosis, nml CTA 2019 active Bebo Contreras MD Hyperlipidemia active Bebo Contreras MD arthritis active Bebo Contreras MD Tiredness and Fatigue active Bebo Contreras MD Unsteady gait active Bebo Contreras MD Swelling of bilateral legs active Bebo Contreras MD COPD active Bebo Contreras MD Claudication active Bebo Contreras MD Vitamin D deficiency active Bebo Contreras MD Neck pain ? cervical radiculopathy? active Bebo Contreras MD Tobacco abuse, former smoker of >30 years active Bebo Contreras MD CKD III active Bebo Contreras MD Easy bruising active Bebo Contreras MD Lung cancer s/p right thoracotomy and RUL resection 11/2021 active Bebo Contreras MD Coronary atherosclerosis, se en on CT 06/2021 active Bebo Contreras MD Cardiology examination active Bebo sheehan MD Cardiology examination completed 3 - Bebo Contreras MD Family History of CVA or Stroke: completed - Bebo Contreras MD ENCOUNTERS Date Type Provider Location Encounter Diag nosis - In-person encounter Office Visit Bebo Contreras MD [facility] - In-person encounter Office Visit Bebo Contreras MD [facility] Cardiology examination - In-person encounter Office Visit Bebo Contreras MD [facility] - In-person encounter Office Visit Bebo Contreras MD [facility] - In-person encounter Office Visit Bebo Contreras MD [facility] - In-person encounter Office Visit Bebo Contreras MD [facility] - In-person encounter Office Visit Bebo Contreras MD [facility] Lung cancer s/p right thoracotomy and RUL resection oronary atherosclerosis, seen on CT 06/2021 - In-person encounter Office Visit Bebo Contreras MD [facility] - In-person encounter Office Visit Bebo Contreras MD [facility] Easy bruising - In-person encounter Office Visit Bebo Contreras MD [facility] - In-person encounter Office Visit Bebo Contreras MD [facility] CKD III - In-person encounter Office Visit Bebo Contreras MD [facility] - In-person encounter Office Visit Bebo Contreras MD [facility] Tobacco abuse, former smoker of >30 years - In-person encounter Office Visit Bebo Contrersa MD [facility] - In-person encounter Office Visit Bebo Contreras MD [facility] Neck pain ? cervical radiculopathy? - In-person encounter Office Visit Bebo Contreras MD [facility] Vitamin D deficiency - In-person encounter Office Visit Bebo Contreras MD [facility] COPDClaudication - In-person encounter Office Visit Bebo Contreras MD [facility] Swelling of bilateral legs - In-person encounter Office Visit Bebo Contreras MD [facility] Subclavian artery stenosis, RN ENT of [facility], s/p MICK R 9/19Carotid artery stenosis, nml CTA 2019 - In-person encounter Office Visit Bebo Contreras MD [facility] Family History of CVA or Stroke:Cardiology examinationCarotid artery stenosis, nml CTA 2019Unsteady gait - In-person encounter Office Visit Bebo Contreras MD [facility] HTN essentialSubclavian artery stenosis, RN ENT of [facility], s/p MICK R 9/19Carotid artery stenosis, nml CTA 2019Hyperlipidemiaarthriti sTiredness and Fatigue VITAL SIGNS Date Observation Value Provider Body Mass Index (Ratio) 28.16 kg/m2 Annabel Contreras MD blood pressure, diastolic 66 mm[Hg] Jayla byers [facility] blood pressure, systolic 120 mm[Hg] Marla [facility]al [facility], oximetry 91 % Naya [facility] pulse rate 76 /min Naya [facility] weight E&M 159 [lb_av] Nyaa [facility] height E&M 63 [in_i] Naya [facility] Body Mass Index (Ratio) 29.23 kg/m2 Annabel Contreras MD respiratory rate E&M 12 /min [facility] pulse rate 76 /[facility] [lb_av] Tiffanie [employer] blood pressure, cuff size regular [facility] blood pressure, diastolic 50 mm[Hg] [facility], systolic 128 mm[Hg] Tab itha [employer] oxygen saturation, oximetry 92 % [facility] height E&M 63 [in_i] [facility] Body Mass Index (Ratio) 27.99 kg/m2 Annabel Contreras MD blood pressure, cuff size regular Ke rri Lor blood pressure, diastolic 80 mm[Hg] Ke rri Samuenemalou blood pressure, systolic 144 mm[Hg] Tata ri Deborah oxygen saturation, oximetry 95 % Janett Deborah respiratory rate E&M 12 /min Janett rudd pulse rate 77 /min Janett Preet [facility] weight E&M 158 [lb_av] Janett Preet [facility] height E&M 63 [in_i] Janett Gruenedave [facility] Body Mass Index (Ratio) 28.69 kg/m2 Annabel Contreras MD blood pressure, diastolic 56 mm[Hg] Bianka blood pressure, systolic 111 mm[Hg] Rocío blood pressure, cuff size large An lucrecia blood pressure, diastolic 56 mm[Hg] An lucrecia Mynor blood pressure, systolic 111 mm[Hg] Any cary Mynor oxygen saturation, oximetry 93 % Yesy pulse rate 101 /min Yesy Mynor weight E&M 162 [lb_av] Yesy height E&M 63 [in_i] Yesy Body Mass Index (Ratio) 28.69 kg/m2 Annabel Contreras MD blood pressure, diastolic 54 mm[Hg] Bianka blood pressure, systolic 109 mm[Hg] blood pressure, cuff size regular Ja rret blood pressure, diastolic 54 mm[Hg] Ja rret blood pressure, systolic 109 mm[Hg] [facility] pulse rate 73 /min [facility] oxygen saturation, oximetry 92 % [facility] respiratory rate E&M 12 /min [facility] weight E&M 162 [lb_av] [facility] height E&M 63 [in_i] [facility] Body Mass Index (Ratio) 29.05 kg/m2 Annabel Contreras MD blood pressure, diastolic 65 mm[Hg] Li blood pressure, systolic 145 mm[Hg] Rocío blood pressure, cuff size regular Ja rret blood pressure, diastolic 65 mm[Hg] Ja rret blood pressure, systolic 145 mm[Hg] Tere ret oxygen saturation, oximetry 97 % respiratory rate E&M 12 /min pulse rate 75 /min Kal y weight E&M 164 [lb_av] y height E&M 63 [in_i] y Body Mass Index (Ratio) 27.99 kg/m2 Annabel Contreras MD blood pressure, diastolic 57 mm[Hg] Li nkLogic blood pressure, systolic 112 mm[Hg] [facility], oximetry 88 % Marva [place] pulse rate 89 /min Marva Lohma n blood pressure, diastolic 57 mm[Hg] St ephanie [place] blood pressure, systolic 112 mm[Hg] Yusuf phamary [place] respiratory rate E&M 16 /min Shar ie [place] weight E&M 158 [lb_av] Marva Lohma n blood pressure, cuff size small St abbie [place] height E&M 63 [in_i] Marva Lohma n Body Mass Index (Ratio) 27.81 kg/m2 Ladi Jackson blood pressure, diastolic 71 mm[Hg] Li nkLogic blood pressure, systolic 139 mm[Hg] Rocío og blood pressure, diastolic 71 mm[Hg] Bee cotton [place] blood pressure, systolic 139 mm[Hg] Sancho amber [place] respiratory rate E&M 16 /min Farideh [place] pulse rate 84 /min Tarsha gamboa weight E&M 157 [lb_av] Tarsha gamboa oxygen saturation, oximetry 94 % Tarsha [place] blood pressure, cuff size large Mi lula [place] height E&M 63 [in_i] Tarsha gamboa Body Mass Index (Ratio) 28.52 kg/m2 Annabel Contreras MD pulse rate 83 /min Marlen [place] blood pressure, diastolic 61 mm[Hg] Te ri [place] blood pressure, systolic 113 mm[Hg] Ter i [place] oxygen saturation, oximetry 96 % Marlen [place] respiratory rate E&M 15 /min Marlen Pi [facility] weight E&M 161 [lb_av] Marlen [place] Body Mass Index (Ratio) 29.05 kg/m2 Ladi Jackson blood pressure, diastolic 60 mm[Hg] Sa ra [place] blood pressure, systolic 137 mm[Hg] Miladis a [place] weight E&M 164 [lb_av] Jigna [place] oxygen saturation, oximetry 95 % Jigna [place] respiratory rate E&M 17 /min Jigna Si ms pulse rate 95 /min Jigna [place] Inhaled O2 1 L/min Jigna [place] blood pressure, cuff size regular Sa ra [place] height E&M 63 [in_i] Jigna [place] Body Mass Index (Ratio) 30.82 kg/m2 Sony Terry blood pressure, cuff size large Mi lula [place] blood pressure, diastolic 50 mm[Hg] Mi lula [place] blood pressure, systolic 130 mm[Hg] Sancho helle [place] oxygen saturation, oximetry 90 % Tarhsa [place] respiratory rate E&M 18 /min Farideh deal [place] pulse rate 86 /min Tarsha gamboa weight E&M 174 [lb_av] Tarsha gamboa height E&M 63 [in_i] Tarsha gamboa Body Mass Index (Ratio) 30.85 kg/m2 Annabel Contreras MD blood pressure, diastolic 70 mm[Hg] Li nkLogic blood pressure, systolic 120 mm[Hg] Rocío kLogic blood pressure, diastolic 70 mm[Hg] Leroy Esparza [place] blood pressure, systolic 120 mm[Hg] Isabella Parra Kael oxygen saturation, oximetry 91 % Sher [place] respiratory rate E&M 16 /min Arsenio [place] pulse rate 48 /min [place] nsva weight E&M 174.2 [lb_av] Sher Urias enson height E&M 63 [in_i] [place] nson Body Mass Index (Ratio) 31.88 kg/m2 Annabel Contreras MD blood pressure, diastolic 70 mm[Hg] Bianka nkLogic blood pressure, systolic 124 mm[Hg] Rocío kLogic blood pressure, cuff size regular Cy monica Byers blood pressure, diastolic 70 mm[Hg] Cy monica Byers blood pressure, systolic 124 mm[Hg] Nicole jose Byers oxygen saturation, oximetry 93 % Melody Byers respiratory rate E&M 16 /min Melody Byers pulse rate 81 /min Melody Samuelbel l weight E&M 180 [lb_av] Melody Campbel l height E&M 63 [in_i] Melody Campbel l Body Mass Index (Ratio) 31.53 kg/m2 Ta John blood pressure, diastolic 62 mm[Hg] Bianka nkLogic blood pressure, systolic 122 mm[Hg] Rocío kLogic blood pressure, resting No Ulices chitra Claudio blood pressure, diastolic 62 mm[Hg] Marco A Claudio blood pressure, systolic 122 mm[Hg] She ruth ann Claudio oxygen saturation, oximetry 92 % Narinder Claudio pulse rate 90 /min Narinder chapin respiratory rate E&M 18 /min Pau Claudio weight E&M 178 [lb_av] Narinder chapin height E&M 63 [in_i] Narinder chapin Body Mass Index (Ratio) 30.82 kg/m2 Annabel Contreras MD blood pressure, diastolic 63 mm[Hg] Cy ntbladimira Byers blood pressure, systolic 157 mm[Hg] Nicole shraoncary Byers blood pressure, cuff size regular Cy ntbladimira Byers pulse rate 74 /min Melody Campbel l respiratory rate E&M 16 /min Melody Byers oxygen saturation, oximetry 92 % Melody Byers weight E&M 174 [lb_av] Melody Campbel l height E&M 63 [in_i] Melody Campbel l Body Mass Index (Ratio) 31.35 kg/m2 Stephon Grant blood pressure, diastolic 64 mm[Hg] Cy nthia Byers blood pressure, systolic 140 mm[Hg] Nicole thia Zeeshan pulse rate 66 /min Melody Campbel l oxygen saturation, oximetry 96 % Melody Beyrs respiratory rate E&M 16 /min Melody Zeeshan blood pressure, cuff size regular Cy ntbladimira Zeeshan weight E&M 177 [lb_av] Melody Grimaldo l height E&M 63 [in_i] Melody Bakerbel l Body Mass Index (Ratio) 32.06 kg/m2 Annabel Contreras MD blood pressure, diastolic 50 mm[Hg] Cy monica Byers blood pressure, systolic 148 mm[Hg] Nicole Byers oxygen saturation, oximetry 93 % Melody Byers pulse rate 67 /min Melodyjose rivera respiratory rate E&M 16 /min Melody Byers blood pressure, cuff size regular Cy monica Byers weight E&M 181 [lb_av] Melody Bakerbel l height E&M 63 [in_i] Melody Samuelbel l pulse rate 83 /min Melody Samuelbel l blood pressure, diastolic 68 mm[Hg] Cy ntchristiano Byers blood pressure, systolic 158 mm[Hg] Nicole jose Byers height E&M 63 [in_i] Melody Bakerbel miguel height in centimeters E&M 160.02 cm Brian Byers Body Mass Index (Ratio) 32.59 kg/m2 Stephon Grant blood pressure, diastolic 62 mm[Hg] Brian Byers blood pressure, systolic 152 mm[Hg] Nicole jose Byers oxygen saturation, oximetry 91 % Melody Byers respiratory rate E&M 16 /min Melodyjose Byers pulse rate 79 /min Melodyjose Grimaldo l blood pressure, cuff size regular Cy monica Byers weight E&M 184 [lb_av] Melody Bakerbel l height E&M 63 [in_i] Melody Bakerbel l Body Mass Index (Ratio) 31.70 kg/m2 Annabel Contreras MD blood pressure, cuff size regular Cy monica Byers blood pressure, diastolic 64 mm[Hg] Brian Byers blood pressure, systolic 150 mm[Hg] Nicole Byers oxygen saturation, oximetry 92 % Melody Byers respiratory rate E&M 16 /min Melody Byers pulse rate 76 /min Melody Grimaldo l weight E&M 179 [lb_av] Melody Samuelbel l height E&M 63 [in_i] Melody Samuelbel l Body Mass Index (Ratio) 31.70 kg/m2 Annabel Contreras MD blood pressure, diastolic 70 mm[Hg] Leroy Scruggs blood pressure, systolic 146 mm[Hg] Isabella [place]s oxygen saturation, oximetry 90 % Sherwilliam Sc[place]ggs respiratory rate E&M 18 /min Arsenio savanna [place] pulse rate 78 /min Sher graham weight E&M 179 [lb_av] Sher graham height E&M 63 [in_i] Sher [place] santos Body Mass Index (Ratio) 31.17 kg/m2 Annabel Contreras MD blood pressure, cuff size regular kayleighchristiano Zeeshan blood pressure, diastolic 76 mm[Hg] Pato Contreras MD blood pressure, systolic 166 mm[Hg] [facility] leobardo Contreras MD oxygen saturation, oximetry 97 % Melody Zeeshan respiratory rate E&M 16 /min Melody Byers pulse rate 69 /min Melody rivera weight E&M 176 [lb_av] Melody Bakerbel l height E&M 63 [in_i] Melody Samuelbel l ALLERGIES Allergy Name Onset Date Reaction Criticality Status STATINS High Criticality active RESULTS Date Observation Value Provider Reference Range Interpretation Location 3 ferritin, serum 493 ng/mL [facility] 15-150 High 3 B-12, serum 405 pg/mL [facility] 232-1245 3 pro brain natriuretic peptide 1415 pg/mL [facility] 0-301 High 3 iron saturation percent, serum 15 % [facility] 15-55 3 iron, serum 47 ug/dL [facility] 27-139 3 iron binding capacity, unsaturated 259 ug/dL [facility] 389-721 5496/12/0 3 iron binding capacity, total 306 ug/dL [facility] 660-926 5873/12/0 3 free thyroxine index 2.6 [facility] 1.2-4.9 3 triiodothyronine resin uptake 27 % [facility] 24-39 3 thyroxine, serum, total 9.6 ug/dL [facility] 4.5-12.0 3 thyroid stimulating hormone, serum 1.540 u[IU]/mL [facility] 0.450-4.500 3 hemoglobin A1C, blood, as % of total hemoglobin 5.6 % [facility] 4.8-5.6 3 lipoprotein, beta, serum, point, quantitative, calculated 67 mg/dL [facility] 0-99 3 HDL cholesterol, serum 45 mg/dL [facility] >39 3 triglyceride, serum, random 125 mg/dL [facility] 0-149 3 cholesterol, serum 134 mg/dL [facility] 033-120 0425/12/0 3 basophil count, absolute 0.1 x10E3/uL [facility] 0.0-0.2 3 Eosinophil Absolute Count 0.2 X10E3/UL [facility] 0.0-0.4 3 monocyte count, blood, automated 0.5 X10E3/UL [facility] 0.1-0.9 3 lymphocyte count, blood, automated 1.9 X10E3/UL [facility] 0.7-3.1 3 Absolute Neutrophils 5.8 X10E3/UL [facility] 1.4-7.0 3 basophils as percent of blood leukocytes 1 % [facility] Not Estab. 3 eosinophils as percent of blood leukocytes 3 % [facility] Not Estab. 3 monocytes as percent of blood leukocytes 6 % [facility] Not Estab. 3 lymphocytes as percent of blood leukocytes 22 % [facility] Not Estab. 3 neutrophils as percent of blood leukocytes 68 % [facility] Not Estab. 3 platelet count 416 X10E3/UL [facility] 998-655 9402/12/0 3 red blood cell distribution width 12.4 % [facility] 11.7-15.4 3 mean corpuscular hemoglobin concentration, RBC 32.4 G/DL [facility] 31.5-35.7 3 mean corpuscular hemoglobin, RBC 30.2 pg [facility] 26.6-33.0 3 mean corpuscular volume, RBC 93 fL [facility] 79-97 3 hematocrit, blood 28.7 % [facility] 34.0-46.6 Low 3 hemoglobin, blood 9.3 g/dL [facility] 11.1-15.9 Low 3 erythrocyte (RBC) count 3.08 X10E6/UL [facility] 3.77-5.28 Low 3 leukocyte count, blood 8.5 X10E3/UL [facility] 3.4-10.8 3 alanine aminotransferase (SGPT), serum 11 1/L [facility] 0-32 3 aspartate aminotransferase (SGOT), serum 28 1/L [facility] 0-40 3 alkaline phosphatase, serum 66 1/L [facility] 39-117 3 bilirubin, serum, total 0.2 mg/dL [facility] 0.0-1.2 3 albumin/globulin ratio, serum 1.5 [facility] 1.2-2.2 3 globulin, serum 2.8 [facility] 1.5-4.5 3 albumin, serum 4.2 g/dL [facility] 3.7-4.7 3 protein, total, serum 7.0 g/dL [facility] 6.0-8.5 3 calcium, serum 9.5 mg/dL [facility] 8.7-10.3 3 carbon dioxide, venous blood 23 mmol/L [facility] 20-29 3 chloride, serum 106 mmol/L [facility] 96-106 3 potassium, serum 4.6 mmol/L [facility] 3.5-5.2 3 sodium, serum 149 mmol/L [facility] 134-144 High 3 urea nitrogen/creatinine ratio, serum 15 [facility] 12- 3 eGFR if 51 mL/min/{1 .73_m2} [facility] >59 Low 3 eGFR if not 44 mL/min/{1 .73_m2} [facility] >59 Low 3 creatinine, serum 1.22 mg/dL [facility] 0.57-1.00 High 3 urea nitrogen, blood 18 mg/dL [facility] 8-27 3 blood glucose, random 116 mg/dL [facility] 65-99 High 3 calcium, serum 9.3 mg/dL [facility] 8.7-10.3 3 carbon dioxide, venous blood 28 mmol/L [facility] - 3 chloride, serum 103 mmol/L [facility] 96-106 3 potassium, serum 5.6 mmol/L [facility] 3.5-5.2 High 3 sodium, serum 148 mmol/L [facility] 134-144 High 3 urea nitrogen/creatinine ratio, serum 15 [facility] 12- 3 eGFR if 65 mL/min/{1 .73_m2} [facility] >59 3 eGFR if not 56 mL/min/{1 .73_m2} [facility] >59 Low 3 creatinine, serum 1.00 mg/dL [facility] 0.57-1.00 3 urea nitrogen, blood 15 mg/dL [facility] 8-27 3 blood glucose, random 114 mg/dL [facility] 65-99 High 4 ferritin, serum 337 ng/mL [facility] 15-150 High 4 B-12, serum 411 pg/mL [facility] 232-1245 4 pro brain natriuretic peptide 495 pg/mL [facility] 0-301 High 4 free thyroxine index 2.1 [facility] 1.2-4.9 4 triiodothyronine resin uptake 25 % [facility] 24-39 4 thyroxine, serum, total 8.4 ug/dL [facility] 4.5-12.0 4 thyroid stimulating hormone, serum 1.300 u[IU]/mL [facility] 0.450-4.500 4 iron saturation percent, serum 19 % [facility] 15-55 4 iron, serum 54 ug/dL [facility] 27-139 4 iron binding capacity, unsaturated 226 ug/dL [facility] 512-872 1793/09/2 4 iron binding capacity, total 280 ug/dL [facility] 469-348 6438/09/2 4 HDL cholesterol, serum 65 mg/dL [facility] >39 4 triglyceride, serum, random 101 mg/dL [facility] 0-149 4 cholesterol, serum 220 mg/dL [facility] 100-199 High 4 alanine aminotransferase (SGPT), serum 15 1/L [facility] 0-32 4 aspartate aminotransferase (SGOT), serum 22 1/L [facility] 0-40 4 alkaline phosphatase, serum 85 1/L [facility] 39-117 4 bilirubin, serum, total 0.3 mg/dL [facility] 0.0-1.2 4 albumin/globulin ratio, serum 1.4 [facility] 1.2-2.2 4 globulin, serum 2.9 [facility] 1.5-4.5 4 albumin, serum 4.1 g/dL [facility] 3.7-4.7 4 protein, total, serum 7.0 g/dL [facility] 6.0-8.5 4 calcium, serum 9.8 mg/dL [facility] 8.7-10.3 4 carbon dioxide, venous blood 29 mmol/L [facility] 20-29 4 chloride, serum 103 mmol/L [facility] 96-106 4 potassium, serum 5.9 mmol/L [facility] 3.5-5.2 High 4 sodium, serum 147 mmol/L [facility] 134-144 High 4 urea nitrogen/creatinine ratio, serum 21 [facility] 12-28 4 eGFR if 55 mL/min/{1 .73_m2} [facility] >59 Low 4 eGFR if not 48 mL/min/{1 .73_m2} [facility] >59 Low 4 creatinine, serum 1.14 mg/dL [facility] 0.57-1.00 High 4 urea nitrogen, blood 24 mg/dL [facility] 8-27 4 blood glucose, random 108 mg/dL [facility] 65-99 High 4 hemoglobin A1C, blood, as % of total hemoglobin 5.5 % [facility] 4.8-5.6 4 basophil count, absolute 0.0 x10E3/uL [facility] 0.0-0.2 4 Eosinophil Absolute Count 0.2 X10E3/UL [facility] 0.0-0.4 4 monocyte count, blood, automated 0.7 X10E3/UL [facility] 0.1-0.9 4 lymphocyte count, blood, automated 2.3 X10E3/UL [facility] 0.7-3.1 4 Absolute Neutrophils 6.5 X10E3/UL [facility] 1.4-7.0 4 basophils as percent of blood leukocytes 0 % [facility] Not Estab. 4 eosinophils as percent of blood leukocytes 2 % [facility] Not Estab. 4 monocytes as percent of blood leukocytes 8 % [facility] Not Estab. 4 lymphocytes as percent of blood leukocytes 24 % [facility] Not Estab. 4 neutrophils as percent of blood leukocytes 66 % [facility] Not Estab. 4 platelet count 339 X10E3/UL [facility] 840-921 5567/09/2 4 red blood cell distribution width 12.2 % [facility] 11.7-15.4 4 mean corpuscular hemoglobin concentration, RBC 32.1 G/DL [facility] 31.5-35.7 4 mean corpuscular hemoglobin, RBC 29.6 pg [facility] 26.6-33.0 4 mean corpuscular volume, RBC 92 fL [facility] 79-97 4 hematocrit, blood 32.4 % [facility] 34.0-46.6 Low 4 hemoglobin, blood 10.4 g/dL [facility] 11.1-15.9 Low 4 erythrocyte (RBC) count 3.51 X10E6/UL [facility] 3.77-5.28 Low 4 leukocyte count, blood 9.8 X10E3/UL [facility] 3.4-10.8 5 pro brain natriuretic peptide 537 pg/mL [facility] 0-301 High 5 hemoglobin A1C, blood, as % of total hemoglobin 6.0 % [facility] 4.8-5.6 High 5 lipoprotein, beta, serum, point, quantitative, calculated 119 mg/dL [facility] 0-99 High 5 very low density lipoproteins 18 mg/dL [facility] 5-40 5 HDL cholesterol, serum 76 mg/dL [facility] >39 5 triglyceride, serum, random 88 mg/dL [facility] 0-149 5 cholesterol, serum 213 mg/dL [facility] 100-199 High 5 platelet count 333 X10E3/UL [facility] 115-689 0809/05/1 5 red blood cell distribution width 12.1 % [facility] 11.7-15.4 mean corpuscular hemoglobin concentration, RBC 31.1 G/DL [facility] 31.5-35.7 Low mean corpuscular hemoglobin, RBC 29.4 pg [facility] 26.6-33.0 mean corpuscular volume, RBC 95 fL [facility] 79-97 hematocrit, blood 36.0 % LinkLog 34.0-46.6 hemoglobin, blood 11.2 g/dL [facility] 11.1-15.9 erythrocyte (RBC) count 3.81 X10E6/UL [facility] 3.77-5.28 leukocyte count, blood 10.1 X10E3/UL [facility] 3.4-10.8 alanine aminotransferase (SGPT), serum 17 1/L [facility] 0-32 aspartate aminotransferase (SGOT), serum 23 1/L [facility] 0-40 alkaline phosphatase, serum 87 1/L [facility] 39-117 bilirubin, serum, total 0.3 mg/dL [facility] 0.0-1.2 albumin/globulin ratio, serum 1.7 [facility] 1.2-2.2 globulin, serum 2.7 [facility] 1.5-4.5 albumin, serum 4.5 g/dL [facility] 3.7-4.7 protein, total, serum 7.2 g/dL [facility] 6.0-8.5 calcium, serum 9.3 mg/[facility] carbon dioxide, venous blood 26 mmol/[facility] 20-29 chloride, serum 102 mmol/L [facility] 96-106 potassium, serum 4.6 mmol/L [facility] 3.5-5.2 sodium, serum 144 mmol/L [facility] 434-101 0153/05/1 5 urea nitrogen/creatinine ratio, serum 15 [facility] 12-28 5 eGFR if 84 mL/min/{1 .73_m2} [facility] >59 5 eGFR if not 73 mL/min/{1 .73_m2} [facility] >59 5 creatinine, serum 0.81 mg/dL [facility] 0.57-1.00 5 urea nitrogen, blood 12 mg/dL [facility] 8-27 5 blood glucose, random 89 mg/dL [facility] 65-99 HISTORY OF MEDICATION USE Medication Status Instructions Dates Provider Indications Com ments clopidogrel 75 mg tablet active TAKE 1 TABLET BY MOUTH EVERY DAY Donna Rushileandra hydralazine 50 mg tablet active TAKE 1/2 TABLET BY MOUTH THREE TIMES DA[facility] [place] [facility]aprine 10 mg tablet active Allie Ventimiglia SAFIA metoprolol tartrate 25 mg tablet active TAKE 1 TABLET BY MOUTH TWICE DAILY [facility] Alonso cilostazol 50 mg tablet active TAKE 1 TABLET BY MOUTH DAILY Janett Cabrera gabapentin 100 mg capsule active Take 1 capsule by mouth every night Tiffanie Flores furosemide 40 mg tablet active Take 1 tablet by mouth twice a day Tiffanie Flores Nexletol 180 mg tablet active Take 1 tablet by mouth once a day Allie BAIG cilostazol 50 mg tablet completed Take 1 tablet by mouth once a day - Janett Cabrera metoprolol tartrate 25 mg tablet completed Take 1 tablet by mouth twice a day - Madison Gavin allopurinol 100 mg tablet active Take 1 tablet by mouth once a day Janett Cabrera amoxicillin 500 mg tablet completed Take 1 tablet by mouth three times a day take 1 tablet by mouth three times a day for five days - Janett Cabrera prednisone 5 mg tablet completed Take 1 tablet by mouth twice a day for 5 days - Janett Cabrera hydralazine 50 mg tablet completed Take 1/2 tablet by mouth three times a day - Donna Rushing furosemide 20 mg tablet completed Take 1 tablet by mouth twice a day - Allie Ventimiglia [employer] clopidogrel 75 mg tablet completed Take 1 tablet by mouth once a day - Donna Reynolds Spiriva Respimat 2.5 mcg/actuation mist active Kal fluticasone propionate unspecified unspecified completed - Janett Cabrera cilostazol 50 mg tablet completed TAKE 1 TABLET BY MOUTH EVERY DAY - Janett Cabrera Nexletol 180 mg tablet completed TAKE 1 TABLET BY MOUTH DAILY - Janett Cabrera clopidogrel 75 mg tablet completed TAKE 1 TABLET BY MOUTH EVERY DAY - Janett Cabrera Iron (ferrous sulfate) 325 mg (65 mg iron) tablet active Take 1 tablet by mouth once a day TAKE 1 TABLET BY MOUTH EVERY DAY Tiffanie Flores vitamin [id number] acid unspecified unspecified completed - Allie Loveglshahnaz [employer] cilostazol 50 mg tablet completed TAKE ONE TABLET BY MOUTH DAILY - Madison Alonso furosemide 20 mg tablet completed TAKE 1 TABLET BY MOUTH ONCE A DAY - Janett Cabrera clopidogrel 75 mg tablet completed TAKE 1 TABLET BY MOUTH EVERY DAY - Bebo Contreras MD metoprolol tartrate 25 mg tablet completed TAKE 1 TABLET BY MOUTH TWICE DAILY - Janett Cabrera hydralazine 50 mg tablet completed TAKE 1/2 TABLET BY MOUTH THREE TIMES DAILY - Janett Cabrera lisinopril 5 mg tablet completed TAKE 1 TABLET BY MOUTH AT BEDTIME - Iban Terry OSTEO BI-FLEX/5-LOXIN ADVANCED TABS completed Take 1 tablet once a day - Melody Byers Nexletol 180 mg tablet completed Take 1 tablet by mouth once a day - Bebo Contreras MD NEXLETOL 180 MG ORAL TABLET completed one tab by mouth once daily - Verito Rader RN cilostazol 50 mg tablet completed Take 1 tablet by mouth twice a day - Domitila Tompkins ALBUTEROL SULFATE (2.5 MG/3ML) 0.083% INHALATION NEBULIZATION SOLUTION completed INHALE VIA NEBULIZER EVERY 6-8 HOURS NEEDED FOR SOB, WHEEZING. - Melody Byers lisinopril 5 mg tablet completed 1 tablet every night - Bebo Contreras MD albuterol sulfate 90 mcg/actuation HFA aerosol inhaler active 2 puff every six hours as needed Bebo Contreras MD SYMBICORT 80-4.5 MCG/ACT INHALATION AEROSOL completed 1 puff twice daily - Melody Byers KLOR-CON M20 20 MEQ ORAL TABLET EXTENDED RELEASE completed one tab daily - Bebo Contreras MD Lasix 20 mg tablet completed Take 1 tablet by mouth once a day - Jamee Loza hydralazine 50 mg tablet completed 0.5 tablet twice a day - Bebo Contreras MD TYLENOL CAPSULE completed Take 1 tablet once a day - Kal Daniel Plavix 75 mg tablet completed 1 tablet once a day - Bebo Contreras MD AMLODIPINE BESYLATE 10 MG ORAL TABLET completed one tab by mouth daily - Bebo Contreras MD aspirin 81 mg tablet,delayed release (DR/EC) completed 1 tablet by mouth once a day - POTASSIUM 99 MG TABLET completed as directed - Melody Zeeshan Imported from [facility] (06-Mar-20 at 11:10:50 AM) OXYCODONE-ACETAMI NOPHEN (PERCOCET) 5-325 MG PER TABLET completed Take 1-2 tablets by mouth every 4 (four) hours as needed for pain (1 tablet for mild to moderate pain or 2 tablets for severe pain). - Melody Zeeshan Imported from [facility]: [facility] (06-Mar-20 at 11:10:50 AM) metoprolol tartrate 25 mg tablet completed Take 1 tablet by mouth twice a day - Saul Doty Imported from [facility]: [facility] (06-Mar-20 at 11:10:50 AM) Claritin 10 mg tablet active Take 1 tablet by mouth once a day Melody Byers Imported from [facility]: [facility] (06-Mar-20 at 11:10:50 AM) CYANOCOBALAMIN (VITAMIN B-12) 500 MCG TABLET completed as directed - Sher Scruggs Imported from [facility] (06-Mar-20 at 11:10:50 AM) VITAMIN D-3 125 MCG (5000 UT) TABS completed Take 1 by mouth once a day - Kal Imported from [facility] (06-Mar-20 at 11:10:50 AM) CALCIUM CARBONATE-VITAMIN D3 (OS-MARIIA 500 + D3) 500MG (1,250MG) -600 UNIT TABLET completed take 1 by Oral route once daily - Sher Scruggs Imported from [facility] (06-Mar-20 at 11:10:50 AM) ACIDOPHILUS-PECTI N, CITRUS 100 MILLION CELL-10 MG CAPSULE completed Take by mouth. - Melody Byers Imported from [facility] (06-Mar-20 at 11:10:50 AM) SOCIAL HISTORY Date Observation Value Provider personal history of marijuana use no Allie Ventimiglia [employer] drug use no Allie Ventimig suhail [employer] alcohol use, average drinks per day social Allie Ventimiglia [employer] alcohol use, type beer Allie Galindo timiglia [employer] alcohol use yes Allie Ventimig suhail [employer] chewing tobacco use Former Allie V entimiglia [employer] cigarette use yes Allie Ventimi glia [employer] smoking status Former smoker Allie Venti miglia [employer] personal history of marijuana use no Allie Ventimiglia [employer] alcohol use, type beer Allie Galindo timiglia [employer] alcohol use, average drinks per day social Allie Ventimiglia [employer] alcohol use yes Allie Ventimig suhail [employer] drug use no Allie Ventimig suhail [employer] chewing tobacco use Former Allie V entimiglia [employer] cigarette use yes Allie Ventimi glia [employer] smoking status Former smoker Allie Venti miglia [facility] social history reviewed E&M revi ewed - no changes required Bebo Contrears MD social history E&M S moking History: Madhavi bello is a former smoker. Bebo Contreras MD seatbelt usage 100 % Yesy Lowe caffeine use, averag e drinks per day 1 /d Yesy Lowe chewing tobacco use Former Yesy mcclure cigarette use yes Yesy Lowe smoking status Former smoker Yesy lopez seatbelt usage 100 % Bebo sheehan MD caffeine use, averag e drinks per day 1 /d Bebo Contreras MD chewing tobacco use Former Bebo Contreras MD cigarette use yes Bebo Contreras MD smoking status Former smoker Bebo bolden MD social history reviewed E&M revi ewed - no changes required Bebo Contreras MD social history E&M S moking History: Madhavi bello is a former smoker. Bebo Contreras MD seatbelt usage 100 % Bebo sheehan MD caffeine use, averag e drinks per day 1 /d Bebo Contreras MD chewing tobacco use Former Bebo Contreras MD cigarette use yes Bebo Contreras MD smoking status Former smoker Bebo bolden MD social history reviewed E&M revi ewed - no changes required Bebo Contreras MD social history E&M S moking History: Madhavi bello is a former smoker. Bebo Contreras MD social history reviewed E&M revi ewed - no changes required Bebo Contreras MD seatbelt usage 100 % Marva tinsley caffeine use, averag e drinks per day 1 /d Marva Garcia chewing tobacco use Former Perla Garcia cigarette use yes Marva Bishop an smoking status Former smoker Marva teran social history E&M S moking History: Madhavi bello is a former smoker. Bebo Contreras MD social history reviewed E&M revi ewed - no changes required Bebo Contreras MD seatbelt usage 100 % Tarsha Bautista caffeine use, averag e drinks per day 1 /d Tarsha Drummond chewing tobacco use Former Tarsha Drummond cigarette use yes Tarsha Hobson nd smoking status Former smoker Tarsha retana social history reviewed E&M revi ewed - no changes required Bebo Contreras MD social history E&M S moking History: Madhavi bello is a former smoker. Bebo Contreras MD seatbelt usage 100 % Marlen Bello caffeine use, averag e drinks per day 1 /d Marlen Bello drug use no Marlen Bello chewing tobacco use Former Marlen Dunbar kett smoking status Former smoker Marlen Bello social history reviewed E&M revi ewed - no changes required Bebo Contreras MD social history E&M S moking History: Madhavi bello is a former smoker. Bebo Contreras MD social history reviewed E&M revi ewed - no changes required Bebo Contreras MD cigarette use yes Tarsha Mickicary yoon smoking status Former smoker Tarsha Young lainey social history E&M S moking History: Madhavi bello is a former smoker. Bebo Contreras MD social history reviewed E&M revi ewed - no changes required Bebo Contreras MD cigarette use yes Sher jin smoking status Former smoker Sher Reilly social history reviewed E&M revi ewed - no changes required Bebo Contreras MD cigarette use yes Melody rodriguez smoking status Former smoker Melody hinson smoking status Former smoker Bebo bolden MD social history reviewed E&M revi ewed - no changes required Bebo Contreras MD cigarette use yes Jenniferfrancoiscary moreno social history E&M S moking History: Madhavi bello is a former smoker. Bebo Contreras MD social history reviewed E&M revi ewed - no changes required Bebo Contreras MD cigarette use yes Melody Louis smoking status Former smoker Melody hinson social history E&M S moking History: P atrachel is a former smoker. Bebo Contreras MD social history reviewed E&M revi ewed - no changes required Bebo Contreras MD cigarette use yes Melody Louis smoking status Former smoker Melody hinson social history E&M S moking History: P atrachel is a former smoker. Bebo Contreras MD social history reviewed E&M revi ewed - no changes required Bebo Contreras MD cigarette use yes Melody Louis smoking status Former smoker Melody hinson social history E&M S moking History: P atrachel is a former smoker. Bebo Contreras MD social history reviewed E&M revi ewed - no changes required Bebo Contreras MD cigarette use yes Melody Louis smoking status Former smoker Melody Baker hinson social history E&M S moking History: P ace is a former smoker. Bebo Contreras MD social history reviewed E&M revi ewed - no changes required Bebo Contreras MD cigarette use yes Melody Louis smoking status Former smoker Melody Baker hinson social history E&M S moking History: P atrachel is a former smoker. Bebo Contreras MD social history reviewed E&M revi ewed - no changes required Bebo Contreras MD cigarette use yes Sher jin smoking status Former smoker Sher Reilly social history E&M S moking History: P atrachel is a former smoker. Bebo Contreras MD social history reviewed E&M revi ewed - no changes required Bebo Contreras MD number of grandchildren Bebo Contreras MD cigarette use yes Melody rodriguez smoking status Former smoker Melody hinson FUNCTIONAL STATUS Date Observation Value Provider HRA, CV Assess/Plan, Angina (inactive) Management Plan continue current therapy Allie Ventimiglia [employer] HRA, CV Assess/Plan, Angina (inactive) Management Plan continue current therapy Allie Ventimiglia [employer] HRA, CV Assess/Plan, Angina (inactive) Management Plan continue current therapy Bebo Contreras MD HRA, CV Assess/Plan, Angina (inactive) Management Plan continue current therapy Bebo Contreras MD FAMILY HISTORY Family Member Condition Father [place] male <55 Mother [place] female <65 Father Family History of CV A or Stroke: Mother Family History of Co ngestive Heart Failure: Mother Family History of Di abetes: INSURANCE PROVIDERS Payer name Policy type / Coverage type [place] red green party ID [facility] MEDICARE ADVANTAGE (PPO) 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 Diet controlled. Bebo Contreras MD [id number],C,B lood pressure control is satisfactory. BP today: 111/56 P rior BP: 109/54 (07/11/2023) Her updated medication list for this problem includes: Hydralazine 50 Mg Tablet (Hydralazine) ..... Take 1/2 tablet by mouth three times a day Furosemide 20 Mg Tablet (Furosemide) ..... Take 1 tablet by mouth once a day Metoprolol Tartrate 25 Mg Tablet (Metoprolol tartrate) ..... Take 1 tablet by mouth twice daily Bebo Contreras MD [id number],C, Exertional SOB improved. Following with Dr Mendoza. Bebo Contreras MD [id number],C, Exertional SOB improved. Former smoker of 48 years. She is now seeing Dr Mendoza. Bebo Contreras MD [id number],EsequielF sanjuanita with nephrology. Bebo Contreras MD [id number],C,C /o neck pain when she turns her head. States it radiates from her neck up to her ear. Reccommended warm/cold compress. Further management by PCP Bebo Contreras MD [id number],S,K nown left subclavian occlusion. She continues on Aspirin and Plavix. Denies arm pain. Bebo Contreras MD [id number],S,C arotid study 06/2022 revealed >70% stenosis of HARMEET and 50-69% stenosis of the LICA. Pt. denies of any weakness, dizziness, lightheadedness, presyncope, or syncope. Bebo Contreras MD [id number],C, R ecent ER visit likely secondary to COPD exacerbation. She was placed on lasix and prednisone 60mg daily. I will reduce the dose of her prednisone to 5mg BID for 5 days. Bebo Contreras MD [id number],C, R ecent ER visit likely secondary to CHF and COPD exacerbation. She was placed on lasix and prednisone 60mg daily. I will reduce the dose of her prednisone to 5mg BID for 5 days. Bebo Contreras MD [id number],C, C oronary calcifications seen on CT 06/2021. Denies of any chest pain. Continues on aspirin. SOB likely secondary to lung cancer and COPD. Bebo Contreras MD [id number],C, K nown left subclavian occlusion. She continues on Aspirin and Plavix. Denies arm pain. We will repeat her ultrasound in 6 months. Bebo Contreras MD [id number],S, C arotid study 06/2022 revealed >70% stenosis of HARMEET and 50-69% stenosis of the LICA. Pt. denies of any weakness, dizziness, lightheadedness, presyncope, or syncope. We will repeat her ultrasound in 6 months. Bebo Contreras MD [id number],S, B lood pressure control is satisfactory. Continues on hydralazine and metoprolol. Bebo Contreras MD [id number],S, C ontinues on Nexletol. We aim for an LDL of <70. Bebo Contreras MD [id number],S, S /p right thoracotomy and RUL reseection 11/2021. Effort tolerance stable. Exertional SOB persists at baseline. Able to complete all ADLs. Bebo Contreras MD [id number],C, B lood pressure control is satisfactory. Continues on hydralazine and metoprolol. Bebo Contreras MD [id number],S, C oronary calcifications seen on CT 06/2021. Denies of any chest pain. Continues on aspirin. SOB likely secondary to lung cancer and COPD. Bebo Contreras MD [id number],S, C ontinues on Nexletol. We aim for an LDL of <70. Bebo Contreras MD [id number],S, S table. F/w pulmonology. Bebo Contreras MD [id number],C, C arotid study 06/2022 revealed >70% stenosis of HARMEET and 50-69% stenosis of the LICA. Pt. denies of any weakness, dizziness, lightheadedness, presyncope, or syncope. We will repeat her ultrasound in 6 months. Bebo Contreras MD [id number],C, K nown left subclavian occlusion. She continues on Aspirin and Plavix. Denies arm pain. We will repeat her ultrasound in 6 months. Bebo Contreras MD [id number],C, C oronary calcifications seen on CT 06/2021. Denies of any chest pain. Continues on aspirin. SOB likely secondary to lung cancer and COPD. Bebo Contreras MD [id number],C, C arotid study 06/2022 revealed >70% stenosis of HARMEET and 50-69% stenosis of the LICA. Pt. denies of any weakness, dizziness, lightheadedness, presyncope, or syncope. Will continue to monitor. Bebo Contreras MD [id number],C, S /p right thoracotomy and RUL reseection 11/2021. Effort tolerance stable. Exertional SOB persists at baseline. Able to complete all ADLs. Bebo Contreras MD [id number],C, R educed intake of carbohydrates and sugars advised. Diet controlled. Bebo Contreras MD [id number],C, C ontinues on Nexletol. We aim for an LDL of <70. Bebo Contreras MD [id number],C, B lood pressure control is satisfactory. Continues on hydralazine and metoprolol. Bebo Contreras MD [id number],C, E ffort tolerance stable. Bebo Contreras MD [id number],C, C ontinues to experience intermittent leg swelling, also has pain in the right hip when walking. I feel that her sx are more related to arthritis than PVD. Bebo Contreras MD [id number],C, K nown left subclavian occlusion. She continues on Aspirin and Plavix. Denies arm pain. Bebo Contreras MD [id number],C, P revious carotid study revealed 70% stenosis of HARMEET and 50% stenosis of the LICA. Carotid study today shows no change. Will continue to monitor. Bebo Contreras MD [id number],C, B lood pressure control is satisfactory. Continues on hydralazine and metoprolol. Bebo Contreras MD [id number],C, C ontinues on Nexletol Bebo Contreras MD [id number],C, B ruising improved after stopping the Plavix. She now continues only on the aspirin. Bebo Contreras MD [id number],C, I mproved since last visit. Bebo Contreras MD [id number],C,B lood pressure control is satisfactory. Continues on hydralazine and metoprolol. Bebo Contreras MD [id number],C,S ignificant improvement in L carotid patency. Previous carotid study revealed 70% stenosis of HARMEET and 50% stenosis of the LICA. We will hold the Plavix and she will continue on the aspirin. We will repeat carotid duplex. Bebo Contreras MD [id number],C,A katerina bruise very easily, takes months to heal. Has been on dual antiplatelet therapy for a year, leading her to risk in bruising. We discussed discontinuing Plavix and/or aspirin. Pt will hold Plavix and see whether bruising heals, continue on aspirin. Bebo Contreras MD [id number],S, K nown left subclavian occlusion, Deployment of 10x 30mm Precise stent 2018. She continues on Aspirin and Plavix. Denies arm pain. Annette Jackson [id number],C, I ncreased at present, as she is recovering from her lung surgery. Had ight thoractotemy, right upper lobe resection. Will continue to monitor. Annette Jackson [id number],S, F maddis with nephrology. Bebo Contreras MD [id number],C, C ontinues on Nexletol Bebo Contreras MD [id number],C, B P control satisfactory Bebo Contreras MD [id number],S, R ecent Carotid doppler showed >70% stenosis of the right ICA, >70% stenosis of the left ICA. She denies of any lightheadness, dizziness. Will schedule carotid doppler in November. Iban Munizluisa [id number],S, F sanjuanita with nephrology. Bebo Contreras MD [id number],S, F ormer smoker of 48 years. She is now seeing Dr Mendoza. Recently underwent biopsy of lung nodules. Bebo Contreras MD [id number],S, C ontinues to experience intermittent leg swelling, also has pain in the right hip when walking. I feel that her sx are more related to arthritis than PVD. Bebo Contreras MD [id number],S, C ontinues to have leg pain with walking. Continues on cilostazol 50mg BID. Bebo Contreras MD [id number],S, P A for nexletol was recently approved. Will refill. Provided samples. We aim for an LDL of <70. Bebo Contreras MD [id number],S, S table. F/w pulmonology. Bebo Contreras MD [id number],S, R ecent Carotid doppler showed >70% stenosis of the right ICA, >70% stenosis of the left ICA. She denies of any lightheadness, dizziness. Bebo Contreras MD [id number],S, K nown left subclavian occlusion, Deployment of 10x 30mm Precise stent 2018. She continues on Aspirin and Plavix. Denies arm pain. Bebo Contreras MD [id number],B, B P control is satisfactory today at 130/50. She was advised to increase her lisinopril to 10mg daily in early August. States it has been averaging 120s/60s at home. Bebo Contreras MD [id number],C, I ntermittent unsteadiness persists. Likely multifactorial, may be related to vascualr disease, also possible cervical arthritis, Advised to use a cane. Bebo Contreras MD [id number],S, O n Nexletol. LDL significantly improved to 67 in 09/2020, previous LDL was 137 in 06/2020. Bebo Contreras MD [id number],C, H er recent PFTs showed moderate obstructive airway disease and severe diffusion defect. She continues on Symbicort inhaler. I have given her a proair inhaler to use. She would likely benefit from a nebulizer which we will try to get for her. She is now seeing Dr Mock for pulmonology, she also had Ct chest which was abnormal, and PET scan is planned. Bebo Contreras MD [id number],C, C ontinues to experience intermittent leg swelling, also has pain in the right hip when walking. Her recent EDSON showed mild arterial disease of the RLE with mild to moderate BLISS PRESS OPERATOR stenosis; mild to moderate disease of the LLE with moderate BLISS PRESS OPERATOR stenosis; tibial arteries are patent to the level of the . The recent CT of the abdomen and pelvis show significant arthritis of the right hip. I feel that her sx are more related to arthritis than PVD. Bebo Contreras MD [id number],C, K nown left subclavian occlusion, Deployment of 10x 30mm Precise stent 2018. She continues on Aspirin and Plavix. Bebo Contreras MD [id number],C, I ntermittent unsteadiness persists. Advised to use a cane. Bebo Contreras MD [id number],C, F ormer smoker of 48 years. She is now seeing Dr Mendoza, recent CT chest showed 2 soft tissue nodules of the right upper lobe. She is planning to to have PET scan after talking to pulmonary. Bebo Contreras MD [id number],S, O n Nexletol. LDL significantly improved to 67 in 09/2020. Bebo Contreras MD [id number],C, H er recent PFTs showed moderate obstructive airway disease and severe diffusion defect. She continues on Symbicort inhaler. I have given her a proair inhaler to use. She would likely benefit from a nebulizer which we will try to get for her. Bebo Contreras MD [id number],C, C ontinues to have leg pain with walking. Reports little relief with Cilostazol 50 mg once daily. Increase to 50 mg twice daily. EDSON done in 06/2020 conclusions: 1 . Mild arterial disease of the right lower extremity with mild to moderate BLISS PRESS OPERATOR stenosis. 2 . Mild to moderate disease of the left lower extremity with moderate BLISS PRESS OPERATOR stenosis. 3 . The tibial arteries are patent to the level of the foot. Bebo Contreras MD [id number],C, R ecent Carotid doppler showed >70% stenosis of the right ICA. >70% stenosis of the left ICA. She reports some lightheadness, dizziness. Bebo Contreras MD [id number],C, K nown left subclavian occlusion with subclavian steal on US. She continues on Aspirin and Plavix. Bebo Contreras MD [id number],C, C ontinues to experience intermittent leg swelling. Her recent EDSON showed mild arterial disease of the RLE with mild to moderate BLISS PRESS OPERATOR stenosis; mild to moderate disease of the LLE with moderate BLISS PRESS OPERATOR stenosis; tibial arteries are patent to the level of the . Bebo Contreras MD [id number],C,R educed intake of carbohydrates and sugars advised. Diet controlled. Bebo Contreras MD [id number],C,F ormer smoker of 48 years. She is not currently following primary care as Dr. Christianson's office was too far of a drive for her. Will arrange for her to have a low dose lung CT. Bebo Contreras MD [id number],C,B P control is satisfactory. BP today: 124/70. Bebo Contreras MD [id number],C,C ontinues to experience intermittent leg swelling. Her recent EDSON showed mild arterial disease of the RLE with mild to moderate BLISS PRESS OPERATOR stenosis; mild to moderate disease of the LLE with moderate BLISS PRESS OPERATOR stenosis; tibial arteries are patent to the level of the foot. WIll arrange for her to have a venous doppler BLE reflux. She is to take 40 mg (two tablets) Lasix for the next 2-5 days until swelling subsides. Bebo Contreras MD [id number],C,K nown left subclavian occlusion with subclavian steal on US. She continues on Aspirin and Plavix. Padmini John [id number],C,C arotid doppler today showed >70% stenosis of the right ICA. >70% stenosis of the left ICA. She reports her lightheadness, dizziness has improved. Padmini John [id number],C,S OB on exertion. Stress test with normal perfusion in 2019. She continues on inhalers. Will refer to spa attendant. PFT 03/2020 conclusions: A lthough there is moderate airway obstruction and a diffusion defect suggesting emphysema, the absence of overinflation i ndicates a concurrent restrictive process which may account for the diffusion defect. A clinical trial of bronchodilators may be beneficial i n view of the airway obstruction. Bebo Contreras MD [id number],C,O n Nexletol. LDL significantly improved to 67 in 09/2020. Bebo Contreras MD [id number],C,B P control is satisfactory. Bebo Contreras MD [id number],C,C ontinues to have leg pain with walking. Reports little relief with Cilostazol 50 mg once daily. Increase to 50 mg twice daily. Discussed AIF with the patient and she is going to consider it and let us know her decision. EDSON done in 06/2020 conclusions: m onophasic waveforms in the right BLISS PRESS OPERATOR consistent with proximal disease of the BLISS PRESS OPERATOR or Illiac artery. EDSON is moderately reduced and normal arterial flow in the left lower extremity with normal EDSON values. Bebo Contreras MD [id number],C,S /p intervention with improvement in symptoms. She continues on Aspirin and Plavix. Bebo Contreras MD Cardiology:Patient u ses walker for ambulation d/t her low back pain and exertional SOB w ould benefit from handicap placard will defer to her PCP Alliearnie Bender [facility] Cardiology:[facility] Cardiology:[facility] Cardiology:This is c hronic in nature and unchanged e cho shows EF of 55% c ontinue present meds [facility] Cardiology:she hss u pcoming labs with her PCP Savi chambers have labs sent H er updated medication list for this problem includes: Nexletol 180 Mg Tablet (Bempedoic acid) ..... Take 1 tablet by mouth once a day [facility] Cardiology:BP 120/60 C ontinue present medication regimen [facility] Cardiology:Last chand tid duplex showed >70% HARMEET and LICA. We will repeat R emains on plavix and nexletol [facility] Cardiology:on nexlet ol s tatin intolerant H er updated medication list for this problem includes: Nexletol 180 Mg Tablet (Bempedoic acid) ..... Take 1 tablet by mouth daily [facility] Cardiology:Cr 1.55 on last labs [facility] Cardiology:planned f or f/u echo m ost likely d/t COPD Alliearnie Bender [facility] Cardiology:has nae nued SOB w ill update echo to r/o underlying source for SOB l ast EF 55% with mild AR and mild MR Allie Bender [facility] Cardiology:BP 144/80 w ill continue present medication regimen H er updated medication list for this problem includes: Furosemide 20 Mg Tablet (Furosemide) ..... Take 1 tablet by mouth twice a day Hydralazine 50 Mg Tablet (Hydralazine) ..... Take 1/2 tablet by mouth three times a day Metoprolol Tartrate 25 Mg Tablet (Metoprolol tartrate) ..... Take 1 tablet by mouth twice daily Alliearnie Bender [facility] Cardiology:unchanged l ast study 06/2023 >70% bilaterally o n plavix and nexletol [facility] Cardiology:Reduced i ntake of carbohydrates and sugars advised. Diet controlled. Bebo Contreras MD Cardiology:Blood pre ssure control is satisfactory. BP today: 111/56 P rior BP: 109/54 (07/11/2023) Her updated medication list for this problem includes: Hydralazine 50 Mg Tablet (Hydralazine) ..... Take 1/2 tablet by mouth three times a day Furosemide 20 Mg Tablet (Furosemide) ..... Take 1 tablet by mouth once a day Metoprolol Tartrate 25 Mg Tablet (Metoprolol tartrate) ..... Take 1 tablet by mouth twice daily Bebo Contreras MD Cardiology: Exertion al SOB improved. Following with Dr Mendoza. Bebo Contreras MD Cardiology: Exertion al SOB improved. Former smoker of 48 years. She is now seeing Dr Mendoza. Bebo Contreras MD Cardiology:Follows w [facility] nephrology. Bebo Contreras MD Cardiology:C/o neck pain when she turns her head. States it radiates from her neck up to her ear. Reccommended warm/cold compress. Further management by PCP Bebo Contreras MD Cardiology:Known lef t subclavian occlusion. She continues on Aspirin and Plavix. Denies arm pain. Bebo Contreras MD Cardiology:Carotid s tudy 06/2022 revealed >70% stenosis of HARMEET and 50-69% stenosis of the LICA. Pt. denies of any weakness, dizziness, lightheadedness, presyncope, or syncope. Bebo Contreras MD Cardiology: R ecent ER visit likely secondary to COPD exacerbation. She was placed on lasix and prednisone 60mg daily. I will reduce the dose of her prednisone to 5mg BID for 5 days. Bebo Contreras MD Cardiology: R ecent ER visit likely secondary to CHF and COPD exacerbation. She was placed on lasix and prednisone 60mg daily. I will reduce the dose of her prednisone to 5mg BID for 5 days. Bebo Contreras MD Cardiology: C oronary calcifications seen on CT 06/2021. Denies of any chest pain. Continues on aspirin. SOB likely secondary to lung cancer and COPD. Bebo Contreras MD Cardiology: K nown left subclavian occlusion. She continues on Aspirin and Plavix. Denies arm pain. We will repeat her ultrasound in 6 months. Bebo Contreras MD Cardiology: C arotid study 06/2022 revealed >70% stenosis of HARMEET and 50-69% stenosis of the LICA. Pt. denies of any weakness, dizziness, lightheadedness, presyncope, or syncope. We will repeat her ultrasound in 6 months. Bebo Contreras MD Cardiology: B lood pressure control is satisfactory. Continues on hydralazine and metoprolol. Bebo Contreras MD Cardiology: C ontinues on Nexletol. We aim for an LDL of <70. Bebo Contreras MD Cardiology: S /p right thoracotomy and RUL reseection 11/2021. Effort tolerance stable. Exertional SOB persists at baseline. Able to complete all ADLs. Bebo Contreras MD Cardiology: B lood pressure control is satisfactory. Continues on hydralazine and metoprolol. Bebo Contreras MD Cardiology: C oronary calcifications seen on CT 06/2021. Denies of any chest pain. Continues on aspirin. SOB likely secondary to lung cancer and COPD. Bebo Contreras MD Cardiology: C ontinues on Nexletol. We aim for an LDL of <70. Bebo Contreras MD Cardiology: S table. F/w pulmonology. Bebo Contreras MD Cardiology: C arotid study 06/2022 revealed >70% stenosis of HARMEET and 50-69% stenosis of the LICA. Pt. denies of any weakness, dizziness, lightheadedness, presyncope, or syncope. We will repeat her ultrasound in 6 months. Bebo Contreras MD Cardiology: K stantonn left subclavian occlusion. She continues on Aspirin and Plavix. Denies arm pain. We will repeat her ultrasound in 6 months. Bebo Contreras MD Cardiology: C oronary calcifications seen on CT 06/2021. Denies of any chest pain. Continues on aspirin. SOB likely secondary to lung cancer and COPD. Bebo Contreras MD Cardiology: C arotid study 06/2022 revealed >70% stenosis of HARMEET and 50-69% stenosis of the LICA. Pt. denies of any weakness, dizziness, lightheadedness, presyncope, or syncope. Will continue to monitor. Bebo Contreras MD Cardiology: S /p right thoracotomy and RUL reseection 11/2021. Effort tolerance stable. Exertional SOB persists at baseline. Able to complete all ADLs. Bebo Contreras MD Cardiology: R educed intake of carbohydrates and sugars advised. Diet controlled. Bebo Cnotreras MD Cardiology: C ontinues on Nexletol. We aim for an LDL of <70. Bebo Contreras MD Cardiology: B lood pressure control is satisfactory. Continues on hydralazine and metoprolol. Bebo Contreras MD Cardiology: E ffort tolerance stable. Bebo Contreras MD Cardiology: Esequiel ontinues to experience intermittent leg swelling, also has pain in the right hip when walking. I feel that her sx are more related to arthritis than PVD. Bebo Contreras MD Cardiology: K nown left subclavian occlusion. She continues on Aspirin and Plavix. Denies arm pain. Bebo Contreras MD Cardiology: P revious carotid study revealed 70% stenosis of HARMEET and 50% stenosis of the LICA. Carotid study today shows no change. Will continue to monitor. Bebo Contreras MD Cardiology: B lood pressure control is satisfactory. Continues on hydralazine and metoprolol. Bebo Contreras MD Cardiology: C ontinues on Nexletol Bebo Contreras MD Cardiology: B ruising improved after stopping the Plavix. She now continues only on the aspirin. Bebo Contreras MD Cardiology: I mproved since last visit. Bebo Contreras MD Cardiology:Blood pre ssure control is satisfactory. Continues on hydralazine and metoprolol. Bebo Contreras MD Cardiology:Significa nt improvement in L carotid patency. Previous carotid study revealed 70% stenosis of HARMEET and 50% stenosis of the LICA. We will hold the Plavix and she will continue on the aspirin. We will repeat carotid duplex. Bebo Contreras MD Cardiology:Arms brui se very easily, takes months to heal. Has been on dual antiplatelet therapy for a year, leading her to risk in bruising. We discussed discontinuing Plavix and/or aspirin. Pt will hold Plavix and see whether bruising heals, continue on aspirin. Bebo Contreras MD Cardiology: K nown left subclavian occlusion, Deployment of 10x 30mm Precise stent 2018. She continues on Aspirin and Plavix. Denies arm pain. Annette Malonebeatris Cardiology: I ncreased at present, as she is recovering from her lung surgery. Had ight thoractotemy, right upper lobe resection. Will continue to monitor. Annette Underwoodmel Cardiology: Siddharth gann with nephrology. Bebo Contreras MD Cardiology: C ontinues on Nexletol Bebo Contreras MD Cardiology: B P control satisfactory Bebo Contreras MD Cardiology: R ecent Carotid doppler showed >70% stenosis of the right ICA, >70% stenosis of the left ICA. She denies of any lightheadness, dizziness. Will schedule carotid doppler in November. Iban Terry Cardiology: Siddharth gann with nephrology. Bebo Contreras MD Cardiology: F ormer smoker of 48 years. She is now seeing Dr Mendoza. Recently underwent biopsy of lung nodules. Bebo Contreras MD Cardiology: Esequiel alvarezinues to experience intermittent leg swelling, also has pain in the right hip when walking. I feel that her sx are more related to arthritis than PVD. Bebo Contreras MD Cardiology: Esequiel alvarezinues to have leg pain with walking. Continues on cilostazol 50mg BID. Bebo Contreras MD Cardiology: P A for nexletol was recently approved. Will refill. Provided samples. We aim for an LDL of <70. Bebo Contreras MD Cardiology: S table. F/w pulmonology. Bebo Contreras MD Cardiology: R ecent Carotid doppler showed >70% stenosis of the right ICA, >70% stenosis of the left ICA. She denies of any lightheadness, dizziness. Bebo Contreras MD Cardiology: K nown left subclavian occlusion, Deployment of 10x 30mm Precise stent 2018. She continues on Aspirin and Plavix. Denies arm pain. Bebo Contreras MD Cardiology: B P control is satisfactory today at 130/50. She was advised to increase her lisinopril to 10mg daily in early August. States it has been averaging 120s/60s at home. Bebo Contreras MD Cardiology: I ntermittent unsteadiness persists. Likely multifactorial, may be related to vascualr disease, also possible cervical arthritis, Advised to use a cane. Bebo Contreras MD Cardiology: O n Nexletol. LDL significantly improved to 67 in 09/2020, previous LDL was 137 in 06/2020. Bebo Contreras MD Cardiology: H er recent PFTs showed moderate obstructive airway disease and severe diffusion defect. She continues on Symbicort inhaler. I have given her a proair inhaler to use. She would likely benefit from a nebulizer which we will try to get for her. She is now seeing Dr Mock for pulmonology, she also had Ct chest which was abnormal, and PET scan is planned. Bebo Contreras MD Cardiology: Esequiel vargasues to experience intermittent leg swelling, also has pain in the right hip when walking. Her recent EDSON showed mild arterial disease of the RLE with mild to moderate BLISS PRESS OPERATOR stenosis; mild to moderate disease of the LLE with moderate BLISS PRESS OPERATOR stenosis; tibial arteries are patent to the level of the . The recent CT of the abdomen and pelvis show significant arthritis of the right hip. I feel that her sx are more related to arthritis than PVD. Bebo Contreras MD Cardiology: K nown left subclavian occlusion, Deployment of 10x 30mm Precise stent 2018. She continues on Aspirin and Plavix. Bebo Contreras MD Cardiology: I ntermittent unsteadiness persists. Advised to use a cane. Bebo Contreras MD Cardiology: F ormer smoker of 48 years. She is now seeing Dr Mendoza, recent CT chest showed 2 soft tissue nodules of the right upper lobe. She is planning to to have PET scan after talking to pulmonary. Bebo Contreras MD Cardiology: O n Nexletol. LDL significantly improved to 67 in 09/2020. Bebo Contreras MD Cardiology: H er recent PFTs showed moderate obstructive airway disease and severe diffusion defect. She continues on Symbicort inhaler. I have given her a proair inhaler to use. She would likely benefit from a nebulizer which we will try to get for her. Bebo Contreras MD Cardiology: Esequiel sims to have leg pain with walking. Reports little relief with Cilostazol 50 mg once daily. Increase to 50 mg twice daily. EDSON done in 06/2020 conclusions: 1 . Mild arterial disease of the right lower extremity with mild to moderate BLISS PRESS OPERATOR stenosis. 2 . Mild to moderate disease of the left lower extremity with moderate BLISS PRESS OPERATOR stenosis. 3 . The tibial arteries are patent to the level of the foot. Bebo Contreras MD Cardiology: R ecent Carotid doppler showed >70% stenosis of the right ICA. >70% stenosis of the left ICA. She reports some lightheadness, dizziness. 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 She continues on Aspirin and Plavix. Bebo Contreras MD Cardiology: Esequiel sims to experience intermittent leg swelling. Her recent EDSNO showed mild arterial disease of the RLE with mild to moderate BLISS PRESS OPERATOR stenosis; mild to moderate disease of the LLE with moderate BLISS PRESS OPERATOR stenosis; tibial arteries are patent to the level of the . Bebo Contreras MD Cardiology follow up :Reduced intake of carbohydrates and sugars advised. Diet controlled. Bebo Contreras MD Cardiology follow up :Former smoker of 48 years. She is not currently following primary care as Dr. Christianson's office was too far of a drive for her. Will arrange for her to have a low dose lung CT. Bebo Contreras MD Cardiology follow up :BP control is satisfactory. BP today: 124/70. Bebo Contreras MD Cardiology follow up :Continues to experience intermittent leg swelling. Her recent EDSON showed mild arterial disease of the RLE with mild to moderate BLISS PRESS OPERATOR stenosis; mild to moderate disease of the LLE with moderate BLISS PRESS OPERATOR stenosis; tibial arteries are patent to the level of the foot. WIll arrange for her to have a venous doppler BLE reflux. She is to take 40 mg (two tablets) Lasix for the next 2-5 days until swelling subsides. 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 She continues on Aspirin and Plavix. Padmini Wardlett Cardiology:Carotid d oppler today showed >70% stenosis of the right ICA. >70% stenosis of the left ICA. She reports her lightheadness, dizziness has improved. Padminikinga WardJohn Cardiology:SOB on ex ertion. Stress test with normal perfusion in 2019. She continues on inhalers. Will refer to spa attendant. PFT 03/2020 conclusions: A lthough there is moderate airway obstruction and a diffusion defect suggesting emphysema, the absence of overinflation i ndicates a concurrent restrictive process which may account for the diffusion defect. A clinical trial of bronchodilators may be beneficial i n view of the airway obstruction. Bebo Contreras MD Cardiology:On Nexlet ol. LDL significantly improved to 67 in 09/2020. Bebo Contreras MD Cardiology:BP contro l is satisfactory. Bebo Contreras MD Cardiology:Continues to have leg pain with walking. Reports little relief with Cilostazol 50 mg once daily. Increase to 50 mg twice daily. Discussed AIF with the patient and she is going to consider it and let us know her decision. EDSON done in 06/2020 conclusions: m onophasic waveforms in the right BLISS PRESS OPERATOR consistent with proximal disease of the BLISS PRESS OPERATOR or Illiac artery. EDSON is moderately reduced and normal arterial flow in the left lower extremity with normal EDSON values. Bebo Contreras MD Cardiology:S/p inter vention with improvement in symptoms. She continues on Aspirin and Plavix. Bebo Contreras MD Cardiology follow up :Symptomatic with neck pain, likely cervical radiculopathy. Further management as per yourself. Bebo Contreras MD Cardiology follow up :Continues on Nexletol. Recent LDL was 67 which is satisfactory. She has a history of intolerance to statins due to myalgias. Bebo Contreras MD Cardiology follow up :Reduced intake of carbohydrates and sugars advised. . Diet controlled. Bebo Contreras MD Cardiology follow up :Blood pressure elevated today. Advised reduced sodium intake and routine monitoring of the blood pressure. We aim for less than 130/80. Bebo Contreras MD Cardiology follow up :50-69% stenosis bilaterally seen on most recent doppler. No change since last doppler. Her CTA in 2019 was normal. Will repeat carotid doppler in 6 months. Bebo Contreras MD Cardiology follow up :s/p intervention with improvement in symptoms. She continues on Aspirin and Plavix. Bebo Contreras MD Cardiology follow up :On replacement therapy. Will check level today. Santos Grant Cardiology follow up :Remains short of breath. She continues on inhalers. Will send order for face mask for nebulizer which will hopefully improve her symptoms. Santos Grant Cardiology follow up :Blood pressure elevated at 140/60. No changes to antihypertensives made. Advised reduced sodium intake and routine monitoring of the blood pressure. We aim for blood pressure less than 130/80. Santos Grant Cardiology follow up :History of statin intolerance due to myalgias per patient. Her LDL was previously elevated. Will repeat lipid panel. We aim for an LDL <70. Santos Grant Cardiology follow up :Monophasic waveforms in the right BLISS PRESS OPERATOR consistent with proximal disease of the BLISS PRESS OPERATOR or Illiac artery. EDSON is moderately r educed and normal arterial flow in the left lower extremity with normal EDSON values. Will start Cilostazol to see if this improves her symptoms. Santos Grant Cardiology follow up :s/p intervention with improvement in symptoms. She continues on Aspirin and Plavix. Santos Grant Cardiology follow up :History of statin intolerance due to myalgias per patient. Her LDL is 119. We aim for LDL < 70. Reduced intake of fats advised. Bebo Contreras MD Cardiology follow up :Intermittent unsteadiness persists. Advised to use a cane. Bebo Contreras MD Cardiology follow up :Continues on bronchodilators. Bebo Contreras MD Cardiology follow up :Her recent PFTs showed moderate obstructive airway disease and severe diffusion defect. She continues on Symbicort inhaler. I have given her a proair inhaler to use. She would likely benefit from a nebulizer which we will try to get for her. Bebo Contreras MD Cardiology follow up :50-69% stenosis bilaterally seen on doppler today. No change since last doppler. Her CTA in 2019 was normal. Bebo Contreras MD Cardiology follow up :Leg pain on walking concerning for claudication. Will check EDSON Bebo Contreras MD Cardiology follow up :s/p intervention with improvement in symptoms. She continues on Aspirin and Plavix. Bebo Contreras MD Cardiology follow up :Blood pressure remains elevated. Will add Lisinopril 5mg daily. She continues on Hydralazine 25mg TID and Metoprolol 25mg BID. Bebo Contreras MD Cardiology follow up :History of statin intolerance due to myalgias per patient. Her LDL is 119. We aim for LDL < 70. Reduced intake of fats advised. Santos Grant Cardiology follow up :Unclear etiology. Her previous echo and stress test were normal. Will check proBNP. Santos Grant Cardiology follow up :Clacific plaques of the bilateral bulbs with no hemodynamic stenosis. Santos Grant Cardiology follow up :s/p intervention with improvement in symptoms. She continues on Aspirin and Plavix. Santos Grant Cardiology follow up :Blood pressure elevated. Will discontinue Amlodipine due to leg swelling. Will start Hydralazine 50mg BID. Santos Grant Cardiology follow up :Unclear etiology. Will check proBNP. Will discontinue Amlodipine as this may be a side effect of the medication. Will start Lasix and Potassium to see if this improves her swelling. wIll also check a CMP for renal function. Santos Grant Cardiology follow up :Intermittent unsteadiness persists. Advised to use a cane. Bebo Contreras MD Cardiology follow up :History of statin intolerance due to myalgias per patient. She will benefit from a lipid panel. Bebo Contreras MD Cardiology follow up :Clacific plaques of the bilateral bulbs with no hemodynamic stenosis. Bebo Contreras MD Cardiology follow up :Blood pressure elevate in the left arm, likely higher in the right arm. Will increase Amlodipine to 10mg daily. Advised to reduce intake of salt. She continues on Metoprolol. Advised to monitor her blood pressure. Bebo Contreras MD Cardiology follow up :s/p recent intervention with improvement in symptoms. She continues on Aspirin and Plavix. Bebo Contreras MD Cardiology:Persists. Possibly due to carotid stenosis. Advised patient to use a cane for ambulation to prevent falls. Bebo Contreras MD Cardiology:History o f statin intolerance due to myalgias per patient. We await blood results from your office. Bebo Contreras MD Cardiology:Wiill dis cuss these findings with the Dr. Mackey to determine if further intervention is indicated. Bebo Contreras MD Cardiology:Repeat ca rotid doppelr showed stenosis bilaterally. She was evaluated by vascular surgery at [facility] a couple of years ago an medical managment was planned at that time. Will discuss these findings with the Dr. Mackey to determine if any further imaging and/or intervention is indicated. Bebo Contreras MD Cardiology:Blood pre ssure remains elevated. Will increase Amlodipine to 5mg daily. Bebo Contreras MD Cardiology [place] Pat[place] nt :History of statin intolerance due to myalgias per patient. We await blood results from your office. Bebo Contreras MD Cardiology [place] Pat[place] nt :Blood pressure elevated at 166/76 and patient reports home blood pressure of 200 systolic. Will start Amlodipine 2.5mg daily. Patient advised to monitor her blood pressure. Bebo Contreras MD Cardiology New Patie nt :50-69% stenosis on carotid dopple in 2017. Will repeat carotid doppler. Bebo Contreras MD Cardiology New Patie nt :Patient symptomatic with dizziness and lightheadedness with use of the left arm. Will arrange arterial dopplers. The last one in 2017 had shown left subclavian artery stenosis and reduced EDSON in the left arm. there is also a note from surgery at [facility] who had intentions of doing surgery but somehow or the other, this was not done. Bebo Contreras MD Cardiology New Patie nt :Shortness of breath on exertion in a patient with known coronary artery calcification and risk factors for CAD. Will arrange stress test and echocardiogram. Bebo Contreras MD Date Name Carotid Duplex Bilat eral Complete Echo Arterial Duplex Uppe r Extremity Bilateral Carotid Duplex Bilat eral Carotid Duplex Bilat eral Carotid Duplex Bilat eral Venous Doppler Bilat eral LE - Reflux Low Dose Lung CT Arterial Duplex Bi-L ower EX Carotid Duplex Bilat eral BASIC METABOLIC PANE L W/EGFR Creatine Kinase VITAMIN B12/FOLATE, SERUM PANEL Vitamin D, 25-Hydrox y COMPREHENSIVE METABO LIC PANEL, W/EGFR LIPID PANEL IRON AND TOTAL IRON BINDING CAPACITY FERRITIN CBC (INCLUDES DIFF/P LT) HEMOGLOBIN A1c PROBNP, N TERMINAL TSH, free T4, total T3 Arterial Duplex Bi-L ower EX LIPID PANEL CBC (H/H, RBC, INDIC ES, WBC, PLT) HEMOGLOBIN A1c COMPREHENSIVE METABO LIC PANEL, W/EGFR PROBNP, N TERMINAL Stress Regadenoson Arterial Duplex Uppe r Extremity Bilateral Complete Echo Carotid Duplex Bilat eral HISTORY OF PROCEDURES Procedure Date Procedure Name Provider Procedure Notes S tatus EKG Bebo Contreras MD complet ed EKG Bebo Contreras MD complet ed EKG Bebo Contreras MD complet ed EKG Bebo Contreras MD complet ed EKG Bebo Contreras MD complet ed EKG Bebo Contreras MD complet ed EKG Bebo Contreras MD complet ed EKG Bebo Contreras MD complet ed EKG Bebo Contreras MD complet ed Counseling LDCT Bebo Contreras MD co mpleted EKG Bebo Contreras MD complet ed EKG Bebo Contreras MD complet ed EKG Bebo Contreras MD complet ed EKG Bebo Contreras MD complet ed EKG Bebo Contreras MD complet ed FVC / MVV with bronchodilator - 57463 Bebo Contreras MD completed BLOOD COUNT HEMOGLOBIN Bebo Contreras MD completed FRC - 31529 Bebo Contreras MD comple beto SpO2 w/o 6min walk/titration Bebo Contreras MD completed DLCO - 73714 Bebo Contreras MD compl eted EKG Bebo Contreras MD complet ed EKG Bebo Contreras MD complet ed EKG Bebo Contreras MD complet ed Regadenoson, 4 units Bebo Contreras MD completed Cardiolite, 2 units Bebo Contreras MD completed SPECT Images Bebo Contreras MD compl eted Stress EKG Bebo Contreras MD complet ed EKG Bebo Contreras MD complet ed
--- OUTSIDE RECORDS SUMMARY | 2024-11-24 12:04 | XMS_ITS | Referral Summary ---
Author Organization [facility] Address [address] [place] [address] Care Team Providers Care Nozzle Operator Name Role Phone Unavailable Primary Care Provider Unavailabl e Source Comments [facility],non-owned Affiliates and Associated Physician Practices is amultiple site organization consisting of ambulatory clinics and hospital sitesin [place], [place], [place] and [place]. This disclosure is being madepursuant to the Care Everywhere program and may not contain all information available regarding this patient. Last updated 18.[facility] Allergies Active Allergy Reactions Criticality Noted Date [...] Mass Index 31.71 07/10/2019 12:19 PM CDT Functional Status Functional Status Response Date of Assess ment Is person deaf or have serious hearing difficult y? No 06/26/2019 Is person blind or have serious difficulty seein g? No 06/26/2019 Does person have serious dif ficulty walking/climbing stairs? No 06/26/2019 Does person have difficulty dressing/bathing? No 06/26/2019 Does person have difficulty doing errands alone? No 06/26/2019 Cognitive Status Response Date of Assessm ent Does person have difficulty concentrating/remembering/making decisions? No 06/26/2019 Plan of Treatment Not on file
--- OUTSIDE RECORDS SUMMARY | 2024-11-24 12:05 | XMS_ITS | Patient Health Record ---
Author Organization [facility] Address [address] [place] [address] Care Team Providers Care Aerial Photographer Name Role Phone Dayo Landrum Unavailable [phone] REASON FOR REFERRAL No Information MEDICATIONS Medication SIG (Take, Route, Frequency, Duration) Notes Start Date End Date Status Allopurinol 100 MG TAKE 1 TABLET BY REY TH ONCE DAILY for 90 Active Allopurinol 200 MG 1 tablet Orally Once a day for 90 days 08/08/2024 08/03/2025 Active Nexletol 180 MG 1 tablet Orally Once a day Active Gabapentin 100 MG 1 capsule Orally Onc e a day for 30 day(s) 04/25/2024 Active Gabapentin 100 MG 1 capsule Orally Onc e a day for 90 days 04/25/2024 Active Vitamin D3 125 MCG (5000 UT) as directed Orally Active hydrALAZINE HCl 50 MG 1 tablet with food Orally Three times a day Active Lasix 40 MG 1 tablet Orally twic e a day for 90 days 08/08/2024 02/04/2025 Active Clopidogrel Bisulfate 75 MG 1 tablet Orally Once a day Active Vitamin D (Ergocalciferol) 1.25 MG (03775 UT) TAKE 1 CAPSULE BY MOUTH ONCE A MONTH for 90 Active Cilostazol 50 MG 1 tablet 30 minutes before or 2 hours after breakfast and dinner Orally Twice a day Active Furosemide 20 MG 1 tablet Orally Once a day Active Metoprolol Tartrate 25 MG 1 tablet with food Orally Twice a day Active SOCIAL HISTORY Sex Assigned At : Social History Observation Description Sex Assigned At Female PROBLEMS Problem Type ICD Code Onset Dates Problem Status W/U Status Risk SNOMED Code Notes Problem Anemia, unspecified (D64.9) Active confirmed Anemia (406009649) Problem Secondary hyperparathyroid ism, not elsewhere classified (E21.1) Active confirmed Secondary hyperparathyroidism (74991840) Problem Polyneuropathy, unspecified (G62.9) Active confirmed Polyneuropathy (02224082) Problem Essential (primary) hypertension (I10) Active confirmed Essential hypertension (90042029) Problem Chronic kidney disease, stage 2 (mild) (N18.2) Active confirmed Chronic kidne y disease stage 2 (488920954) Problem Renal osteodystrophy (N25.0) Active confirmed Renal osteodyst rophy (98454067) Problem Other proteinuria (R80.8) Active confirmed Proteinuria (68704858) Problem Solitary pulmonary nodule (R91.1) Active confirmed Solitary pulmon yajaira nodule (441013504) Problem Chronic kidney disease, stage 3a (N18.31) Active confirmed Chronic kidney disease stage 3A (disorder) (195343492) Problem Chronic kidney disease, stage 3b (N18.32) Active confirmed Chronic kidney disease stage 3B (disorder) (048055607) Encounters Encounter Location Date Provider Diagnosis [facility] [address] [place] [address] 04/25/2024 Dayo Landrum Chronic kidney disea se, stage 2 (mild) N18.2 ; Essential (primary) hypertension I10 ; Anemia, unspecified D64.9 ; Other proteinuria R80.8 ; Secondary hyperparathyroidism, not elsewhere classified E21.1 and Renal osteodystrophy N25.0 [facility] [place] [facility] [address] [place] [address] 07/18/2024 Dayo Landrum [facility] [place] [facility] [address] [place] [address] 08/08/2024 Dayo Landrum Chronic kidney disea se, stage 2 (mild) N18.2 ; Chronic kidney disease, stage 3a N18.31 ; Essential (primary) hypertension I10 ; Anemia, unspecified D64.9 ; Other proteinuria R80.8 ; Secondary hyperparathyroidism, not elsewhere classified E21.1 and Renal osteodystrophy N25.0 [facility] [address] [address] 10/03/2024 Dayo Landrum Chronic kidney disea se, stage 3b N18.32 ; Hyperkalemia E87.5 ; Solitary pulmonary nodule R91.1 ; Prediabetes R73.03 and Polyneuropathy, unspecified G62.9 [facility] [address] [place] [address] 04/25/2024 Dayo Landrum [facility] [address] [facility] [address] [place] [address] 04/25/2024 Dayo Harding [address] [place] [address] 05/19/2024 Dayo Landrum [facility] [place] [facility] [address] [place] [address] 08/08/2024 Dayo Ladnrum ASSESSMENTS Encounter Date Diagnosis Assessment Notes Treatment Notes Treatment Clinical Notes Section Notes 04/25/2024 Chronic kidney disease, stage 2 (mild) (ICD-10 - N18.2) 08/08/2024 Chronic kidney disease, stage 2 (mild) (ICD-10 - N18.2) 08/08/2024 Chronic kidney disease, stage 3a (ICD-10 - N18.31) 10/03/2024 Chronic kidney disease, stage 3b (ICD-10 - N18.32) 10/03/2024 Hyperkalemia (ICD-10 - E87.5) 10/03/2024 Solitary pulmonary nodule (ICD-10 - R91.1) 08/08/2024 Essential (primary) hypertension (ICD-10 - I10) 04/25/2024 Essential (primary) hypertension (ICD-10 - I10) 04/25/2024 Anemia, unspecified (ICD-10 - D64.9) 08/08/2024 Anemia, unspecified (ICD-10 - D64.9) 10/03/2024 Prediabetes (ICD-10 - R73.03) 10/03/2024 Polyneuropathy, unspecified (ICD-10 - G62.9) 08/08/2024 Other proteinuria (ICD-10 - R80.8) 04/25/2024 Other proteinuria (ICD-10 - R80.8) 04/25/2024 Secondary hyperparathyroidism , not elsewhere classified (ICD-10 - E21.1) 08/08/2024 Secondary hyperparathyroidism , not elsewhere classified (ICD-10 - E21.1) 08/08/2024 Renal osteodystrophy (ICD-10 - N25.0) 04/25/2024 Renal osteodystrophy (ICD-10 - N25.0) PLAN OF TREATMENT Next Appt Details Provider Name:Dayo Landrum , 11/27/2024 01:45:00 PM, [address], [facility] [address], [place], [address],
--- OUTSIDE RECORDS SUMMARY | 2024-11-24 12:05 | XMS_ITS | Clinical Summary ---
Author Organization [facility] Address [address] [address] Care Team Providers Care Yardmaster Name Role Phone Unavailable Primary Care Provider Unavailabl e Social History Tobacco Use Types Packs/Day Years Used Date Smoking Tobacco: Never Assessed Comments Unknown Sex and Gender Information Value Date Recorded Sex Assigned at Not on file Legal Sex Female 2:56 PM EDT Gender Identity Not on file Sexual Orientation Not on file Plan of Treatment Health Maintenance Due Date Last Done Comments Pneumococcal Vaccine: 65+ Ye ars (1 of 2 - PCV) 1951 Influenza Vaccine (#1) 2024 Hepatitis B Vaccine Aged Out No longe r eligible based on patient's age to complete this topic Insurance MEDICARE
--- OUTSIDE RECORDS SUMMARY | 2024-11-24 12:05 | XMS_ITS | Clinical Summary ---
Author Organization [facility] Address [address] [place] [address] Phone Care Team Providers Care Activity Coordinator Name Role Phone Piter Mendoza MD Primary Care Provider Allergies Active Allergy Reactions Criticality Noted Date Comments Codeine Vomiting 04/13/2023 Medications hydrALAZINE 50 MG Tablet TK 1/2 (HALF) TABLET TID 1 Active metoprolol tartrate (LOPRESSOR) 25 MG Tablet TK 1 T PO BID 8 Active clopidogrel (PLAVIX) 75 MG Tablet Take 1 tablet every day by oral route. 0 Active ferrous sulfate 325 (65 Fe) MG Tablet Take 1 tablet every day by oral route. 0 Active allopurinol (ZYLOPRIM) 100 MG Tablet TK 1T PO QD Active Bempedoic Acid (Nexletol) 180 MG Tablet Take 1 Tablet by mouth daily. 0 Active furosemide (LASIX) 20 MG Tablet Take 1 tablet every day by oral route. 1 Active cilostazol (PLETAL) 50 MG Tablet Take 1 tablet twice a day by oral route. 2 Active ergocalciferol (VITAMIN D) 50351 UNIT Capsule 2 Active albuterol 108 (90 Base) MCG/ACT Aerosol Solution Inhale 1 puff every 4 hours by inhalation route as needed for 90 days. 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 Hyperlipidemia 03/06/2019 Social History Tobacco Use Types Packs/Day Years Used Date Smoking Tobacco: Former Cigarettes 2 40 1 976 - 2016 Smokeless Tobacco: Never Tobacco Cessation:Counseling Given: Not Answered Alcohol Use Standard Drinks/Week Comments Never 0 (1 standard drink = 0.6 oz pur e alcohol) Comments Unknown Sex and Gender Information Value Date Recorded Sex Assigned at Not on file Legal Sex Female 3:25 PM CDT Gender Identity Not on file Sexual Orientation Not on file Last Filed Vital Signs Vital Sign Reading Time Taken Comments Blood Pressure 114/62 04/13/2023 2:12 PM CDT Pulse 76 04/13/2023 2:12 PM CDT Temperature 36.8 C (98.2 F) 04/13/2023 2:12 PM CDT Respiratory Rate 18 04/13/2023 2:12 PM CDT Oxygen Saturation 96% 04/13/2023 2:12 PM CDT Inhaled Oxygen Concentration - - Weight 71.6 kg (157 lb 14.4 oz) 04/13/2023 2:12 PM CDT Height 160.7 cm (5' 3.25 ) 04/13/2023 2:12 PM CD T Body Mass Index 27.75 04/13/2023 2:12 PM CDT Plan of Treatment Health Maintenance Due Date Last Done Comments DEXA Bone Density 1945 Hepatitis C Virus (HCV) Screening 1945 TdaP Immunization 1945 SARS-COV-2 Immunization (#1) 1952 Zoster Immunization (1 of 2) 1966 Respiratory Syncytial Virus (RSV) Immunization (Adult) (1 - 1-dose 75+ series) 2022 Influenza Immunization (#1) 2024 Pneumococcal Immunization (5 0+ years) Completed 07/11/2022, 06/23/2021 Hepatitis B Immunization Aged Out No longer eligible based on patient's age to complete this topic Meningococcal Immunization (ACWY) Aged Out No longer eligible b ased on patient's age to complete this topic Rotavirus Immunization Aged Out No lo nger eligible based on patient's age to complete this topic Insurance MEDICARE C [facility] Member Subscriber Plan / Payer (Ef fective 2022-Present) Name:Magdalene Wang Relation to Subscriber:Self Name:Magdalene Wang Payer ID:[id number] (NAIC) Type:Not on file Address: [address] on file Care Teams Activity Coordinator Relationship Specialty Start Date End Date Piter Mendoza MD [address] [place] [id number] PCP - General Internal Medicine 04/13/23
--- OUTSIDE RECORDS SUMMARY | 2024-11-24 12:05 | XMS_ITS ---
Author Organization [facility] Address [address] [place] [address] Care Team Providers Care Supervisor Area Name Role Phone Dayo Landrum Unavailable [phone] MEDICATIONS Medication SIG (Take, Route, Frequency, Duration) [...] day for 90 days 04/25/2024 Active Vitamin D (Ergocalciferol) 1.25 MG (03691 UT) TAKE 1 CAPSULE BY MOUTH ONCE A MONTH for 90 Active SOCIAL HISTORY Sex Assigned At : Social History Observation Description Sex Assigned At Female PROBLEMS Problem Type ICD Code Onset Dates Problem Status W/U Status Risk SNOMED Code Notes Problem Chronic kidney disease, stage 3b (N18.32) Active confirmed Chronic kidney disease stage 3B (disorder) (018900297) Problem Solitary pulmonary nodule (R91.1) Active confirmed Solitary pulmonary nodule (907146753) Problem Polyneuropathy, unspecified (G62.9) Active confirmed Polyneuropathy (81163677) Encounters Encounter Location Date Provider Diagnosis [place] [facility] [address] [facility] [address] [place] [address] 10/03/2024 Dayohugo Landrum Chronic kidney disease, stage 3b N18.32 ; Hyperkalemia E87.5 ; Solitary pulmonary nodule R91.1 ; Prediabetes R73.03 and Polyneuropathy, unspecified G62.9 ASSESSMENTS Encounter Date Diagnosis Assessment Notes Treatment Notes Treatment Clinical Notes Section Notes 10/03/2024 Chronic kidney disease, stage 3b (ICD-10 - N18.32) 10/03/2024 Hyperkalemia (ICD-10 - E87.5) 10/03/2024 Solitary pulmonary nodule (ICD-10 - R91.1) 10/03/2024 Prediabetes (ICD-10 - R73.03) 10/03/2024 Polyneuropathy, unspecified (ICD-10 - G62.9) PLAN OF TREATMENT Next Appt Details Provider Name:Dayo Diallo , 11/27/2024 01:45:00 PM, [address] [facility], [facility] [address], [place], [address], Progress Notes * SHANIKA HUMPHREYB:1945 (79 yo F)Acc No.[id number]:10/03/2024 Patient: ED HUMPHREY Provider: MD EVANGELINA, F.A.C.P, F.A.S.N. :1945 Age:79 Y Sex:Female Date:10/03/2024 Address:[address] [place] [address] Subjective: * Chief Complaints: Objective: Assessment: * Assessment: 1. Chronic kidney disease, stage 3b - N18.32 (Primary) 2. Hyperkalemia - E87.5 3. Solitary pulmonary nodule - R91.1 4. Prediabetes - R73.03 5. Polyneuropathy, unspecified - G62.9 Plan: * Billing Information: * Visit Code: 40851 Office Visit, Est Pt., Level 4. * Procedure Codes: * GENCY ROOM RN Sign off status: Pending * Provider: MD EVANGELINA, F.A.C.P, F.A.S.N. Date: 10/03/2024
[2024-11-24 12:37] LABS: Basophils Percent Auto 0.3 % (0.2-1.2); Eosinophils Absolute Auto 0.1 K/mm3 (0-0.3); Eosinophils Percent Auto 1.7 % (0-4.4); Hematocrit 33.4 % (37.0-47.0); Hemoglobin 10.3 g/dL (12.0-15.0); Immature Granulocyte Absolute 0.01 K/mm3 (0.00-0.031); Immature Granulocyte Percent A 0.1 % (0-0.5); Lymphocytes Absolute Auto 2.04 K/mm3 (0.9-3.2); Lymphocytes Percent Auto 29.3 % (18.3-44.2); Mean Corpuscular HGB Conc 30.8 g/dl (32-36); Mean Corpuscular Hemoglobin 31.5 pg (26-34); Mean Corpuscular Volume 102.1 fl (80-100); Mean Platelet Volume 10.4 fl (7.4-10.4); Monocytes Absolute Auto 0.6 K/mm3 (0.1-0.6); Monocytes Percent Auto 8.3 % (2.6-8.5); Neutrophils Absolute Auto 4.2 K/mm3 (1.3-6.7); Neutrophils Percent Auto 60.3 % (45.5-73.1); Platelet Count Result 283 k/mm3 (150-375); Red Blood Count 3.27 M/mm3 (4.2-5.4); Red Cell Distribution Width 13.9 % (11.5-14.5)
[2024-11-24 12:47] LABS: Add Urine Microscopic? YES; Appearance Urine Cloudy (Clear); Bacteria Urine 2+ /hpf; Bilirubin Urine Negative (Negative); Blood Urine Negative (Negative); Color Urine Yellow (Yellow); Glucose Urine UA Negative (Negative); Ketones Urine Negative (Negative); Leukocyte Esterase Ur Negative LEU/UL (Negative); Nitrate Urine Negative (Negative); Non Pathogenic Casts 0-2; Protein Urine Negative (Negative); RBC Urine 0-2 /hpf (0-2); Specific Grav Ur 1.008 (1.001-1.035); Squamous Epithelial Cell Urine Many /hpf (Few); Urobilinogen Urine 0.2 mg/dL (<2.0); WBC Urine 0-5 /hpf (0-3); pH Urine 5.5 (5.0-9.0)
[2024-11-24 14:32] LABS: Hemoglobin A1C 5.4 % (<5.7)
[2024-11-24 15:37] LABS: Alanine Aminotransferase 13 U/L (6-35); Albumin Level 4.3 g/dL (3.5-5.1); Alkaline Phosphatase 80 U/L (38-126); Anion Gap 12 mmol/L (4-12); Aspartate Amino Transferase 29 U/L (14-36); Bilirubin,Total 0.9 mg/dL (0.2-1.3); Blood Urea Nitrogen 29 mg/dL (7-17); Calcium 9.4 mg/dL (8.4-10.2); Carbon Dioxide 27 mmol/L (22-30); Chloride 102 mmol/L (98-107); Cholesterol 158 mg/dL (0-200); Estimated Glomerular Filt Rate 44; Glucose 85 mg/dL (65-110); HDL Direct 57 mg/dL; Potassium 4.1 mmol/L (3.4-5.0); Sodium 141 mmol/L (137-145); Triglycerides 97 mg/dL (<150); Uric Acid 5.7 mg/dL (2.5-7.5)
[2024-11-24 15:48] LABS: LDL Cholesterol Direct 64 mg/dL
[2024-11-24 15:49] LABS: Parathyroid Intact 74.8 pg/mL (14.5-75.2)
[2024-11-24 15:57] LABS: Free T4 Free Thyroxine 1.69 ng/dL (0.78-2.19); Vitamin D 25 Hydroxy 42.7 ng/mL
[2024-11-24 16:14] LABS: Creatinine Urine 49.9 mg/dL
[2024-11-24 16:21] LABS: MALB Creatinine Ratio 37.5 mg/g (0-30); Microalbumin Urine Random 18.7 mg/L (0-16.7)
== END 2024-11-24 11:06 | disposition home or self-care (01) ==
PROVIDERS: PCP Internal Medicine; Referring Provider Specialist; Visit Provider Internal Medicine Hematology & Oncology
DX: C34.11 Malignant neoplasm of upper lobe, right bronchus or lung (principal); I12.9 Hypertensive chronic kidney disease with stage 1 through stage 4 chronic kidney disease, or unspecified chronic kidney disease; N18.30 Chronic kidney disease, stage 3 unspecified; E55.9 Vitamin D deficiency, unspecified; R35.0 Frequency of micturition; N39.0 Urinary tract infection, site not specified; R73.09 Other abnormal glucose; E21.3 Hyperparathyroidism, unspecified; R94.6 Abnormal results of thyroid function studies; Z11.4 Encounter for screening for human immunodeficiency virus [HIV]
CPT/HCPCS: 36415; 71250; 80053; 80061; 81001; 82043; 82306; 83036; 83970; 84439; 84443; 84550; 85025

== ENCOUNTER 2025-05-20 08:26 | Outpatient (CLI) | payer MEDICARE, SELFPAY ==
--- OUTSIDE RECORDS SUMMARY | 2025-05-20 08:36 | XMS_ITS | Clinical Summary ---
Demographics Address [address] [place] [address] Mobile Phone Home Phone Email Address Preferred Language Unknown Marital Status Zoroastrianism Affiliation Unknown Race White Ethnic Group Unknown Author Organization [facility] Address [address] [place] [address] Care Team Providers Care Inseamer Name Role Phone Piter Mendoza MD Primary [...] Encounters Date Type Department Care Team Description 04/29/2025 External Device Data ST[facility] ABSTRACTION Provider, Abstract 04/28/2025 External Device Data [facility] ABSTRACTION Provider, Abstract 03/31/2025 External Device Data [facility] ABSTRACTION Provider, Abstract 03/05/2025 External Device Data [place] ABSTRACTION Provider, Abstract 03/04/2025 External Device Data [place] ABSTRACTION Provider, Abstract 03/03/2025 External Device Data ST[place] ABSTRACTION Provider, Abstract [...] 11:50 AM CDT Height 160.7 cm (5' 3.25) 06/09/2022 12:46 PM C DT Body Mass Index 29.7 06/09/2022 12:46 PM CDT Plan of Treatment Upcoming Encounters Date Type Department Care Team (Late st Contact Info) Description 06/08/2025 11:00 AM CDT Office Visit [facility] [place] [address] [facility] [address] [place] [address] Jered Mckay MD [address] [facility] [address] [place] [address] Health Maintenance Due Date Last Done Comments DTAP/TDAP/TD VACCINES (1 - Tdap) 1966 PNEUMOCOCCAL VACCINE 50+ YEARS (1 of 2 - PCV) 03/08/19 66 ZOSTER VACCINE (1 of 2) 1997 OSTEOPOROSIS SCREENING 2012 RSV VACCINE (60+ or ) (1 - 1-dose 75+ series) 2022 INFLUENZA VACCINE (#1) 2025 Medical Devices Implanted Type Area City Assessor Device Identifier Shelf Expiration Date Model / Serial / Lot Sealant Progel Pleural 4ml [id number] - [id number] Implanted:Qty : 1 on 12/01/2021 by Jaime Monsalve MD at [facility] Tissue N/A: Chest [employer] [id number] 03/14/2022 [id number] / / [id number] Subclavian Stent Subclavian Hardware Right: Hip Insurance [facility] / [address] [id number] * Guarantor: Magdalene Wang Account Type Relation to Patient Date of Phone Billing Address Personal/Family Self 1945 [address] [place] [address] [facility] [id number] * Guarantor: Magdalene Wang Account Type Relation to Patient Date of Phone Billing Address Personal/Family Self 1945 [address] [place] [address] RX [facility] Medicare Part D Advance Directives For more information, please contact: [phone] Documents on File Type Date Recorded Patient First Calender Worker Expl anation Advance Directive POA 12/07/2021 3:26 [...] 9:49 AM 12/01/2021 11:54 AM Care Teams Inseamer Relationship Specialty Start Date End Date Piter Mendoza MD PCP - General Internal Medicine 07/08/21
--- OUTSIDE RECORDS SUMMARY | 2025-05-20 08:36 | XMS_ITS | Clinical Summary ---
Author Organization [facility] Address [address] [place] [address] Care Team Providers Care Coater Helper Name Role Phone Unavailable Primary Care Provider Unavailabl e Source Comments [facility],non-owned Affiliates and Associated Physician Practices is amultiple site organization consisting of ambulatory clinics and hospital sitesin [place] and [place]. This disclosure is being madepursuant to the Care Everywhere program and may not contain all information available regarding this patient. Last updated 18.[facility] Allergies Active Allergy Reactions Criticality Noted Date Comments Acetaminophen-Codeine Nausea and/or Vomiting vomiting Medications * Be aware that medications may not be up to date on this document. Alwaysverify current medications with the patient. metoprolol tartrate (LOPRESSOR) 25 MG tablet 25 [...] of Binge Drinking Not on file 05/16 Comments Unknown Sex and Gender Information Value Date Recorded Sex Assigned at Not on file Legal Sex Female 2:26 PM CDT Gender Identity Not on file [...] 12:19 PM CDT Height 160 cm (5' 3) 07/10/2019 12:19 PM CDT Body Mass Index [...] VACCINE ( - 2023-2 5 season) 2024 DEPRESSION SCREENING 10/15/2024 INFLUENZA VACCINE (#1) 2025 HEPATITIS B VACCINE Aged Out No longe r eligible based on patient's age to complete this topic HIB VACCINE Aged Out No longer eligi ble based on patient's age to complete this topic HPV VACCINE Aged Out No longer eligi ble based on patient's age to complete this topic MENINGOCOCCAL (Group B) VACC INE SHARED DECISION-MAKING Aged Out No longer eligibl e based on patient's age to complete this topic MENINGOCOCCAL GROUPS A/C/Y/W VACCINE Aged Out No longer eligible b ased on patient's age to complete this topic Insurance [employer] MANAGED MEDICARE ADV
--- OUTSIDE RECORDS SUMMARY | 2025-05-20 08:36 | XMS_ITS ---
Author Organization [facility] Address [address] [place] [address] Care Team Providers Care Nailhead Puncher Name Role Phone Dayo Landrum Unavailable [phone] Social History Sex Assigned At : Social History Observation Description Sex Assigned At Female Encounters Encounter Location Date Provider Diagnosis Rashaad Harding [address] [place] [address] 05/08/2025 Dayo Landrum Essential (primary) hypertension I10 [...] Next Appt Details Provider Name:Dayo Landrum , 07/31/2025 12:45:00 PM, [address] [facility], [facility], [place], [address], Progress Notes * SHANIKA HUMPHREYB:1945 (80 yo F)Acc No.[id number]:05/08/2025 Progress Notes Patient: ED QUIGLEY Provider: Ivsi PATEL MD, Siddharth.Maurilio.Esequiel.P, F.A.S.N. :1945 A ge:80 Y S ex:Female Date:05/08/2025 Address:[address] [place] [address]-[facility] [place] Subjective: * Chief Complaints: * * Medical [...] Treatment: * Billing Information: * Visit Code: 25752 Office Visit, Est Pt., Level 4. * Procedure Codes: * Electronic signature of Fili Landrum MD on 05/20/2025 at 08:36 AM CDT Sign off status: Pending * Provider: Ivis PATEL MD, Siddharth.Maurilio.C.P, F.A.S.N. Date: 0 05/08/2025 Generated for Printing/Faxing/eTransmitting on: 05/20/2025 08:36 AM CDT
--- OUTSIDE RECORDS SUMMARY | 2025-05-20 08:36 | XMS_ITS | Continuity of Care Document ---
Author Organization [facility] Address [address] [place] [phone] Phone Care Team Providers Care Fresh Food Manager Name Role Phone Ben CHAPARRO, FAC, Bebo Unavailable Unavail able Medications Medication Instructions Dosage Effective Dates (start - stop) Status Comments hydralazine 50 mg tablet - A ctive Nexletol 180 mg tablet - Act julissa allopurinol 200 mg tablet - Active cilostazol 50 mg tablet - Ac tive clopidogrel 75 mg tablet - A ctive metoprolol tartrate 25 mg tablet - Active ergocalciferol (vitamin D2) 1,250 mcg (50,000 unit) capsule TAKE 1 CAPSULE BY MOUTH 1 TIME A MONTH - Active FeroSul 325 mg (65 mg iron) tablet - Active cyclobenzaprine 10 mg tablet - Active furosemide 40 mg tablet take one tablet by mouth daily - Active Spiriva Respimat 2.5 mcg/actuation solution for inhalation INHALE 2 PUFFS BY MOUTH ONCE DAILY - Active albuterol sulfate HFA 90 mcg/actuation aerosol inhaler INHALE 1 PUFF BY MOUTH EVERY 4 HOURS NEEDED - Active Advance Directives Directive Yes / No Effective Date File Name No Information Encounters Encounter Description Practice Location Reason(s) For Visit Diagnoses Date Provider Providers Copied on Encounter [facility], [address] [place] [address], [id number], tel:[phone] [facility] Rashaad No Information Ben Lagunas. [address] [facility], [place], [place], [id number], . tel:[phone] Family History Family Member Type Diagnosis Age At Onset No Information Payers Payer name Insurance type Covered alliance party ID Authoriza tion(s) No Information Social History Type Description Quantity Date Captured Comments Sex Female Smoking Status No Information Chief Complaint And Reason For Visit No Information Reason For Referral Reason For Referral No Information Plan Of Treatment Date Type Action Status Appointment Magdalene Wang BOOKED History Of Present Illness Encounter Date Complaint History Of Prese nt Illness No Information Functional Status Date Functional Assessmen t No Information Instructions Date Instruction Additional Infor mation No Information Assessments Type Assessment Date No Information Patient Care Teams Name Effective Dates (start - stop) Status Members No Information
--- OUTSIDE RECORDS SUMMARY | 2025-05-20 08:36 | XMS_ITS ---
Author Organization [facility] Address [address] [place] [address] Care Team Providers Care Resource Conservation Specialist Name Role Phone Dayo Landrum Unavailable [phone] Medications Medication SIG (Take, Route, Frequency, Duration) Notes Start Date End Date Status Vitamin D (Ergocalciferol) 1.25 MG (45966 UT) TAKE 1 CAPSULE BY MOUTH ONCE [...] W/U Status Risk Notes Problem Chronic kidney disease, stage 3a (N18.31) Active confirmed Encounters Encounter Location Date Provider Diagnosis [facility] [place] [facility] [address] [place] [address] 08/08/2024 Dayo Landrum Chronic kidney disea se, [...] Name:Dayo Landrum , 07/31/2025 12:45:00 PM, [address], [facility], Progress Notes * JULIANA HUMPHREYTAMIEB:1945 (80 yo F)Acc No.[id number]:08/08/2024 Progress Notes Patient: ED QUIGLEY Provider: Ivis PATEL MD, F.A.C.P, F.A.S.N. :1945 A ge:79 Y S ex:Female Date:08/08/2024 Address:[address] [place] [address] Subjective: * Chief Complaints: * * Medical [...] , Taking Vitamin D (Ergocalciferol) 1.25 MG (88870 UT) Capsule TAKE 1 CAPSULE BY MOUTH [...] Treatment: * Billing Information: * Visit Code: 80048 Office Visit, Est Pt., Level 4. * Procedure Codes: * Electronic signature of Fili Landrum MD on 05/20/2025 at 08:36 AM CDT Sign off status: Pending * Provider: Ivis PATEL MD, F.A.C.P, F.A.S.N. Date: Generated for Printing/Faxing/eTransmitting on: 05/20/2025 08:36 AM CDT
--- OUTSIDE RECORDS SUMMARY | 2025-05-20 08:37 | XMS_ITS | Patient Health Record ---
Author Organization [facility] Address [address] [place] [address] Care Team Providers Care Financial Accountant Name Role Phone Scooby Landrumerjit Unavailable [phone] Reason For Referral No Information Medications Medication SIG (Take, Route, Frequency, Duration) Notes Start Date End Date Status Allopurinol 100 MG TAKE 1 TABLET BY REY TH ONCE DAILY; Duration: 90 Active Allopurinol 200 MG 1 tablet Orally Once a day; Duration: 90 days 08/08/2024 08/03/2025 Active Nexletol 180 MG 1 tablet Orally Once a day Active Gabapentin 100 MG 1 capsule Orally Onc e a day; Duration: 30 day(s) 04/25/2024 Active Gabapentin 100 MG 1 capsule Orally Onc e a day; Duration: 90 days 04/25/2024 Active Vitamin D3 125 MCG (5000 UT) as directed Orally Active hydrALAZINE HCl 50 MG 1 tablet with food Orally Three times a day Active Clopidogrel Bisulfate 75 MG 1 tablet Orally Once a day Active Vitamin D (Ergocalciferol) 1.25 MG (95158 UT) TAKE 1 CAPSULE BY MOUTH ONCE A MONTH; Duration: 90 Active Cilostazol 50 MG 1 tablet 30 minutes before or 2 hours after breakfast and dinner Orally Twice a day Active Furosemide 20 MG 1 tablet Orally Once a day Active Metoprolol Tartrate 25 MG 1 tablet with food Orally Twice a day Active Social History Sex Assigned At : Social History Observation Description Sex Assigned At Female Problems Problem Type SNOMED Code ICD Code Onset Dates Problem Status W/U Status Risk Notes Problem Anemia (537485511) Anemia, unspecified (D64.9) Active confirmed Problem Secondary hyperparathyroidism (15535662) Secondary hyperparathyroid ism, not elsewhere classified (E21.1) Active confirmed Problem Polyneuropathy (53823269) Polyneuropathy, unspecified (G62.9) Active confirmed Problem Essential hypertension (51444434) Essential (primary) hypertension (I10) Active confirmed Problem Chronic kidney disease stage 2 (719441781) Chronic kidney disease, stage 2 (mild) (N18.2) Active confirmed Problem Renal osteodystrophy (07548177) Renal osteodystrophy (N25.0) Active confirmed Problem Proteinuria (75576243) Other proteinuria (R80.8) Active confirmed Problem Solitary pulmonary nodule (R91.1) Active confirmed Problem Chronic kidney disease stage 3A (disorder) (937402781) Chronic kidney disease, stage 3a (N18.31) Active confirmed Problem Chronic kidney disease stage 3B (disorder) (017615288) Chronic kidney disease, stage 3b (N18.32) Active confirmed Encounters Encounter Location Date Provider Diagnosis [facility] [place] [facility] [address] [place] [address] 08/08/2024 Dayo Landrum Chronic kidney disea se, stage 2 (mild) N18.2 ; Chronic kidney disease, stage 3a N18.31 ; Essential (primary) hypertension I10 ; Anemia, unspecified D64.9 ; Other proteinuria R80.8 ; Secondary hyperparathyroidism, not elsewhere classified E21.1 and Renal osteodystrophy N25.0 [facility] [address] [facility] [address] [place] [address] 10/03/2024 Dayo Landrum Chronic kidney disea se, stage 3b N18.32 ; Hyperkalemia E87.5 ; Solitary pulmonary nodule R91.1 ; Prediabetes R73.03 and Polyneuropathy, unspecified G62.9 Rashaad Harding [address] [place] [address] 05/08/2025 Dayo Landrum Essential (primary) hypertension I10 ; Chronic kidney disease, stage 3a N18.31 ; Anemia, unspecified D64.9 ; Other proteinuria R80.8 ; Secondary hyperparathyroidism, not elsewhere classified E21.1 ; Renal osteodystrophy N25.0 ; Solitary pulmonary nodule R91.1 and Polyneuropathy, unspecified G62.9 [facility] [place] [facility] [address] [place] [address] 08/08/2024 Dayo Landrum Assessments Encounter Date Diagnosis (ICD Code) Assessment Notes Treatment Notes Treatment Clinical Notes Section Notes 08/08/2024 Chronic kidney disease, stage 2 (mild) (ICD-10 - N18.2) 08/08/2024 Chronic kidney disease, stage 3a (ICD-10 - N18.31) 10/03/2024 Hyperkalemia (ICD-10 - E87.5) 10/03/2024 Chronic kidney disease, stage 3b (ICD-10 - N18.32) 05/08/2025 Essential (primary) hypertension (ICD-10 - I10) 05/08/2025 Chronic kidney disease, stage 3a (ICD-10 - N18.31) 05/08/2025 Anemia, unspecified (ICD-10 - D64.9) 10/03/2024 Solitary pulmonary nodule (ICD-10 - R91.1) 08/08/2024 Essential (primary) hypertension (ICD-10 - I10) 08/08/2024 Anemia, unspecified (ICD-10 - D64.9) 10/03/2024 Prediabetes (ICD-10 - R73.03) 05/08/2025 Other proteinuria (ICD-10 - R80.8) 05/08/2025 Secondary hyperparathyroidism , not elsewhere classified (ICD-10 - E21.1) 10/03/2024 Polyneuropathy, unspecified (ICD-10 - G62.9) 08/08/2024 Other proteinuria (ICD-10 - R80.8) 08/08/2024 Secondary hyperparathyroidism , not elsewhere classified (ICD-10 - E21.1) 05/08/2025 Renal osteodystrophy (ICD-10 - N25.0) 05/08/2025 Solitary pulmonary nodule (ICD-10 - R91.1) 08/08/2024 Renal osteodystrophy (ICD-10 - N25.0) 05/08/2025 Polyneuropathy, unspecified (ICD-10 - G62.9) Plan Of Treatment Next Appt Details Provider Name:Dayo Landrum , 07/31/2025 12:45:00 PM, 2043 [facility], [facility], [place], [address],
--- OUTSIDE RECORDS SUMMARY | 2025-05-20 08:37 | XMS_ITS | Clinical Summary ---
Author Organization [facility] Facility Address [address] [address] Care Team Providers Care Communications Instructor Name Role Phone Unavailable Primary Care Provider [...] Due Date Last Done Comments Pneumococcal Vaccine: 50+ Ye ars (1 of 2 - PCV) 1966 Influenza Vaccine (#1) 2025 Hepatitis B Vaccine Aged Out No longe r eligible based on patient's age to complete this topic Insurance Medicare
--- OUTSIDE RECORDS SUMMARY | 2025-05-20 08:37 | XMS_ITS | Clinical Summary ---
Author Organization [facility] Address [address] [place] [address] Phone Care Team Providers Care Mixing And Molding Machine Operator Name Role Phone Piter Mendoza MD Primary [...] oral route. 2 Active ergocalciferol (VITAMIN D) 81707 UNIT Capsule 2 Active albuterol 108 (90 [...] 2:12 PM CDT Height 160.7 cm (5' 3.25) 04/13/2023 2:12 PM CD T Body Mass Index 27.75 04/13/2023 2:12 PM CDT Plan of Treatment Health Maintenance Due Date Last Done Comments Hepatitis C Virus (HCV) Screening 1945 TdaP Immunization 1945 SARS-COV-2 Immunization (#1) 1952 Zoster Immunization (1 of 2) 1966 Respiratory Syncytial Virus (RSV) Immunization (Adult) (1 - 1-dose 75+ series) 2022 Influenza Immunization (#1) 2025 Pneumococcal Immunization (5 0+ years) Completed 07/11/2022, 06/23/2021 Hepatitis B Immunization Aged Out No longer eligible based on patient's age to complete this topic Human Papillomavirus (HPV) Immunization Aged Out No longer eligible b ased on patient's age to complete this topic Meningococcal Immunization (ACWY) Aged Out No longer eligible b ased on patient's age to complete this topic Rotavirus Immunization Aged Out No lo nger eligible based on patient's age to complete this topic Insurance MEDICARE C [facility] Member Subscriber Plan / Payer (Ef fective 2022-Present) Name:Magdalene Wang Relation to Subscriber:Self Name:Magdalene Wang Payer ID:[id number] (NAIC) Type:Not on file Address: [address] on file Care Teams Mixing And Molding Machine Operator Relationship Specialty Start Date End Date Piter Mendoza MD [address] [place] [id number] PCP - General Internal Medicine 04/13/23
--- OUTSIDE RECORDS SUMMARY | 2025-05-20 08:37 | XMS_ITS ---
Author Organization [facility] Address [address] [place] [address] Care Team Providers Care Supervisor Assembly And Packing Name Role Phone Dayo Landrum Unavailable [phone] Medications Medication SIG (Take, Route, Frequency, Duration) [...] 04/25/2024 Active Vitamin D (Ergocalciferol) 1.25 MG (13257 UT) TAKE 1 CAPSULE BY MOUTH ONCE A MONTH; Duration: 90 Active Social History Sex Assigned At : Social History Observation Description Sex Assigned At Female Problems Problem Type SNOMED Code ICD Code Onset Dates Problem Status W/U Status Risk Notes Problem Chronic kidney disease stage 3B (disorder) (341413417) Chronic kidney disease, stage 3b (N18.32) Active confirmed Problem Solitary pulmonary nodule (107466345) Solitary pulmonary nodule (R91.1) Active confirmed Problem Polyneuropathy (02724310) Polyneuropathy, unspecified (G62.9) Active confirmed Encounters Encounter Location Date Provider Diagnosis [place] [facility] [address] [facility] 15 [place] [address] 10/03/2024 Dayo Landrum Chronic kidney disease, stage [...] Name:Dayo Landrum , 07/31/2025 12:45:00 PM, [address] [address], [place], [address], Progress Notes * SHANIKA HUMPHRYEB:1945 (80 yo F)Acc No.[id number]:10/03/2024 Patient: ED QUIGLEY Provider: Ivis PATEL MD, F.A.C.P, F.A.S.N. :1945 A ge:79 Y S ex:Female Date:10/03/2024 Address:[address] [place], [place] [address] Subjective: * Chief Complaints: Objective: Assessment: * Assessment: 1. C hronic kidney disease, stage 3b - N18.32 (Primary) 2 . H yperkalemia - E87.5 3 . S olitary pulmonary nodule - R91.1 4 . P rediabetes - R73.03 5 . P olyneuropathy, unspecified - G62.9 Plan: * Billing Information: * Visit Code: 15394 Office Visit, Est Pt., Level 4. * Procedure Codes: * Electronic signature of Fili Landrum MD on 05/20/2025 at 08:36 AM CDT Sign off status: Pending * Provider: Ivis PATEL MD, F.A.C.P, F.A.S.N. Date: 12/04/2023 Generated for Printing/Faxing/eTransmitting on: 0 05/20/2025 08:36 AM CDT
--- NOTE | 2025-05-20 16:27 | WPDPFTINT ---
PFT Procedure Performed PFT Procedure Performed Spirometry with Pre/Post Bronchodilator Plethysmography (Lung Vol) Diffusing Cap (DLCO) Flow Vol Loop PFT Interpretation This is a pulmonary function test with pre and post-bronchodilator spirometry, plethysmography and diffusing capacity. The test was performed and results interpreted in accordance with the 2019 and 2005 ATS/ERS Task Force guidelines respectively using the Global Lung Function Initiative-2012 reference equations. Patient demonstrated good effort and cooperation. Reproducibility criteria were met. The quality of the pre bronchodilator spirometry maneuver was Grade A and post bronchodilator spirometry maneuver was Grade A. Findings: Spirometry: There is decreased maximal expiratory airflow at all lung volumes with a concave expiratory flow tracing. The contour the inspiratory flow tracing is normal. The pre bronchodilator FVC is 1.82 L, 73% predicted. The pre bronchodilator FEV1 is 0.87 L, 45% predicted. The pre bronchodilator FEV1: FVC ratio is 48%. The post bronchodilator FVC is 1.93 L, representing a 6% increase. The post bronchodilator FEV1 is 0.95 L, representing a 9% increase. The post bronchodilator FEV1: FVC ratio is 49%. Plethysmography: The total lung capacity is 6.66 L, 136% predicted. The functional residual capacity is 4.79 L, 170% predicted. The residual volume is 4.61 L, 201% predicted. The residual volume: Total lung capacity ratio 69%. Diffusing capacity: The diffusing capacity unadjusted for hemoglobin and carboxyhemoglobin is 8.9, 46% predicted. The diffusing capacity adjusted for alveolar volume is 2.72, 65% predicted. Impression: There is a severe obstructive abnormality. There is no significant improvement after inhaling a single dose of albuterol. The increase in residual volume to total lung volume ratio is consistent with hyperinflation from an obstructive abnormality. The diffusing capacity unadjusted for hemoglobin and carboxyhemoglobin is moderately decreased and remains mildly decreased when adjusted for alveolar volume. There are no prior studies for comparison
== END 2025-05-20 08:27 | disposition home or self-care (01) ==
PROVIDERS: PCP Internal Medicine; Visit Provider Internal Medicine Pulmonary Disease
DX: J44.9 Chronic obstructive pulmonary disease, unspecified (principal)
CPT/HCPCS: 94060; 94726; 94729

== ENCOUNTER 2025-08-31 10:09 | Outpatient (CLI) | payer MEDICARE, SELFPAY ==
--- NOTE | ~2025-08-31 | CT_ITS ---
EXAMINATION:CT diagnostic chest wo con DATE: 08/31/2025 10:39 INDICATION: Cancer right upper lobe TECHNIQUE: Computed tomography (CT) of the chest was performed without intravenous contrast. The dose-length product (DLP) was 172.82 mGy-cm. COMPARISON: November 24, 2024 FINDINGS: Surgical changes in the right suprahilar region noted stable. No new nodules or masses seen. No consolidation effusion or pneumothorax. Heart and great vessels are stable in size. Small pericardial effusion similar to slightly increased in size compared to the November exam. Extensive apical scarring calcifications throughout the arteries. Diffuse degenerative changes in the bones. No acute process seen in the visualized portions of the upper abdomen or extrathoracic soft tissues. Cholecystectomy clips noted. IMPRESSION: 1. No gross evidence of recurrent disease. No acute process. 2. Small pericardial effusion slightly increased in size from November 2024 CT. Reviewed, dictated and finalized at location A. OTELEGRAPHIST
== END 2025-08-31 10:10 | disposition home or self-care (01) ==
PROVIDERS: PCP Internal Medicine; Visit Provider Internal Medicine Hematology & Oncology
DX: C34.11 Malignant neoplasm of upper lobe, right bronchus or lung (principal); I31.39 Other pericardial effusion (noninflammatory)
CPT/HCPCS: 71250

== ENCOUNTER 2025-09-08 11:22 | Outpatient (CLI) | payer MEDICARE, SELFPAY ==
--- OUTSIDE RECORDS SUMMARY | 2024-04-25 06:30 | XMS_ITS ---
Author Organization [facility] Address [address] [address] [place] [address] Care Team Providers Care Research Neuropsychologist Name Role Phone Dayo Landrum Unavailable [phone] Medications Medication SIG (Take, Route, Frequency, Duration) Notes Start Date End Date Status Vitamin D (Ergocalciferol) 1.25 MG (23697 UT) TAKE 1 CAPSULE BY MOUTH ONCE A MONTH; Duration: 90 Active Allopurinol 100 MG TAKE 1 TABLET BY ONCE DAILY; Duration: 90 Active Metoprolol Tartrate 25 MG 1 tablet with food Orally Twice a day Active Furosemide 20 MG 1 tablet Orally Once a day Active hydrALAZINE HCl 50 MG 1 tablet with food Orally Three times a day Active Nexletol 180 MG 1 tablet Orally Once a day Active Vitamin D3 125 MCG (5000 UT) as directed Orally Active Cilostazol 50 MG 1 tablet 30 minutes before or 2 hours after breakfast and dinner Orally Twice a day Active Clopidogrel Bisulfate 75 MG 1 tablet Ora lly Once a day Active Social History Sex Assigned At : Social History Observation Description Sex Assigned At Female Encounters Encounter Location Date Provider Diagnosis [facility] [facility] [address] [facility] [address] [place] [address] 04/25/2024 Dayo Landrum Chronic kidney disea se, stage 2 (mild) N18.2 ; Essential (primary) hypertension I10 ; Anemia, unspecified D64.9 ; Other proteinuria R80.8 ; Secondary hyperparathyroidism, not elsewhere classified E21.1 and Renal osteodystrophy N25.0 Assessments Encounter Date Diagnosis (ICD Code) Assessment Notes Treatment Notes Treatment Clinical Notes Section Notes 04/25/2024 Chronic kidney disease, stage 2 (mild) (ICD-10 - N18.2) 04/25/2024 Essential (primary) hypertension (ICD-10 - I10) 04/25/2024 Anemia, unspecified (ICD-10 - D64.9) 04/25/2024 Other proteinuria (ICD-10 - R80.8) 04/25/2024 Secondary hyperparathyroidism , not elsewhere classified (ICD-10 - E21.1) 04/25/2024 Renal osteodystrophy (ICD-10 - N25.0) Plan Of Treatment Next Appt Details Provider Name:Dayo Diallo , 10/02/2025 01:00:00 PM, [address] [facility], [facility], [place], [address], Progress Notes * JULIANA HUMPHREYTAMIEB:1945 (80 yo F)Acc No.[id number]:04/25/2024 Progress Notes Patient: ED QUIGLEY Provider: Ivis PATEL MD, F.A.C.P, F.A.S.N. :1945 A ge:79 Y S ex:Female Date:04/25/2024 Address:[address] [place] [address] Subjective: * Chief Complaints: * * Medical History: * Medications: T aking Nexletol 180 MG Tablet 1 tablet Orally Once a day , Taking Clopidogrel Bisulfate 75 MG Tablet 1 tablet Orally Once a day , Taking Cilostazol 50 MG Tablet 1 tablet 30 minutes before or 2 hours after breakfast and dinner Orally Twice a day , Taking Vitamin D3 125 MCG (5000 UT) Tablet as directed Orally , Taking hydrALAZINE HCl 50 MG Tablet 1 tablet with food Orally Three times a day , Taking Furosemide 20 MG Tablet 1 tablet Orally Once a day , Taking Metoprolol Tartrate 25 MG Tablet 1 tablet with food Orally Twice a day , Taking Allopurinol 100 MG Tablet TAKE 1 TABLET BY MOUTH ONCE DAILY , Taking Vitamin D (Ergocalciferol) 1.25 MG (86184 UT) Capsule TAKE 1 CAPSULE BY MOUTH ONCE A MONTH Objective: * Vitals: Assessment: * Assessment: 1. C hronic kidney disease, stage 2 (mild) - N18.2 (Primary) 2 . E ssential (primary) hypertension - I10 3 . A nemia, unspecified - D64.9 4 . O ther proteinuria - R80.8 5 . S econdary hyperparathyroidism, not elsewhere classified - E21.1 6 . R enal osteodystrophy - N25.0 Plan: * Treatment: * Billing Information: * Visit Code: 54632 Office Visit, Est Pt., Level 4. * Procedure Codes: * Electronic signature of Fili Landrum MD on 09/08/2025 at 01:12 PM ECOMMERCE PROJECT MANAGER Sign off status: Pending * Provider: Ivis PATEL MD, F.A.C.P, F.A.S.N. Date: 0 04/25/2024 Generated for Printing/Faxing/eTransmitting on: 11/08/2024 01:12 PM ECOMMERCE PROJECT MANAGER
--- OUTSIDE RECORDS SUMMARY | 2024-07-18 06:15 | XMS_ITS ---
Author Organization [facility] Address [address] [place] [address] Care Team Providers Care Tariff Counsel Name Role Phone Dayo Landrum Unavailable [phone] Social History Sex Assigned At : Social History Observation Description Sex Assigned At Female Encounters Encounter Location Date Provider Diagnosis [facility] [place] [facility] [address] [place] [address] 07/18/2024 Dayo Landrum Plan Of Treatment Next Appt Details Provider Name:Dayo Landrum , 10/02/2025 01:00:00 PM, [address] [facility], [facility] [address], [place], [address], Progress Notes * SHANIKA HUMPHREYB:1945 (80 yo F)Acc No.[id number]:07/18/2024 Progress Notes Patient: ED QUIGLEY Provider: Ivis PATEL MD, Siddharth.Maurilio.C.P, F.A.S.N. :1945 A ge:79 Y S ex:Female Date:07/18/2024 Address:[address] [place], [place] [id number] Subjective: * Chief Complaints: * * Medical History: Objective: * Vitals: Assessment: Plan: * Treatment: * Billing Information: * Visit Code: * Procedure Codes: * Electronic signature of Fili Landrum MD on 09/08/2025 at 01:12 PM BILLING MANAGER Sign off status: Pending * Provider: Ivis PATEL MD, Siddharth.Maurilio.C.P, F.A.S.N. Date: Generated for Printing/Faxing/eTransmitting on: 11/08/2024 01:12 PM BILLING MANAGER
--- OUTSIDE RECORDS SUMMARY | 2024-08-08 06:15 | XMS_ITS ---
Author Organization [facility] Address [address] [place] [address] Care Team Providers Care Bobbin Painter Name Role Phone Dayo Landrum Unavailable [phone] Medications Medication SIG (Take, Route, Frequency, Duration) Notes Start Date End Date Status Vitamin D (Ergocalciferol) 1.25 MG (85490 UT) TAKE 1 CAPSULE BY MOUTH ONCE A MONTH; Duration: 90 Active Metoprolol Tartrate 25 MG 1 tablet with food Orally Twice a day Active Gabapentin 100 MG 1 capsule Orally Onc e a day; Duration: 30 day(s) 04/25/2024 Active Allopurinol 100 MG TAKE 1 TABLET BY REY TH ONCE DAILY; Duration: 90 Active Gabapentin 100 MG 1 capsule Orally Onc e a day; Duration: 90 days 04/25/2024 Active Furosemide 20 MG 1 tablet Orally Once a day Active hydrALAZINE HCl 50 MG 1 tablet with food Orally Three times a day Active Clopidogrel Bisulfate 75 MG 1 tablet Ora lly Once a day Active Vitamin D3 125 MCG (5000 UT) as directed Orally Active Cilostazol 50 MG 1 tablet 30 minutes before or 2 hours after breakfast and dinner Orally Twice a day Active Nexletol 180 MG 1 tablet Orally Once a day Active Social History Sex Assigned At : Social History Observation Description Sex Assigned At Female Problems Problem Type SNOMED Code ICD Code Onset Dates Problem Status W/U Status Risk Notes Problem Chronic kidney disease stage 3A (disorder) ([id number]) Chronic kidney disease, stage 3a (N18.31) Active confirmed Encounters Encounter Location Date Provider Diagnosis [facility] [place] [facility] [address] [place] [address] 08/08/2024 Dayo Landrum Chronic kidney disea se, stage 2 (mild) N18.2 ; Chronic kidney disease, stage 3a N18.31 ; Essential (primary) hypertension I10 ; Anemia, unspecified D64.9 ; Other proteinuria R80.8 ; Secondary hyperparathyroidism, not elsewhere classified E21.1 and Renal osteodystrophy N25.0 Assessments Encounter Date Diagnosis (ICD Code) Assessment Notes Treatment Notes Treatment Clinical Notes Section Notes 08/08/2024 Chronic kidney disease, stage 2 (mild) (ICD-10 - N18.2) 08/08/2024 Chronic kidney disease, stage 3a (ICD-10 - N18.31) 08/08/2024 Essential (primary) hypertension (ICD-10 - I10) 08/08/2024 Anemia, unspecified (ICD-10 - D64.9) 08/08/2024 Other proteinuria (ICD-10 - R80.8) 08/08/2024 Secondary hyperparathyroidism , not elsewhere classified (ICD-10 - E21.1) 08/08/2024 Renal osteodystrophy (ICD-10 - N25.0) Plan Of Treatment Next Appt Details Provider Name:Dayo Landrum , 10/02/2025 01:00:00 PM, [address], [facility], Progress Notes * JULIANA HUMPHREYATMIEB:1945 (80 yo F)Acc No.[id number]:08/08/2024 Progress Notes Patient: ED QUIGLEY Provider: Ivis PATEL MD, F.A.C.P, F.A.S.N. :1945 A ge:79 Y S ex:Female Date:08/08/2024 Address:[address] [place] [address] Subjective: * Chief Complaints: * * Medical [...] food Orally Twice a day , Taking Vitamin D (Ergocalciferol) 1.25 MG (06817 UT) Capsule TAKE 1 CAPSULE BY MOUTH ONCE A MONTH , Taking Gabapentin 100 MG Capsule 1 capsule Orally Once a day , Taking Gabapentin 100 MG Capsule 1 capsule Orally Once a day , Taking Allopurinol 100 MG Tablet TAKE 1 TABLET BY MOUTH ONCE DAILY Objective: * Vitals: Assessment: * Assessment: 1. C hronic kidney disease, stage 2 (mild) - N18.2 (Primary) 2 . C hronic kidney disease, stage 3a - N18.31 3 . E ssential (primary) hypertension - I10? 4. A nemia, unspecified - D64.9 5 . O ther proteinuria - R80.8 6. S econdary hyperparathyroidism, not elsewhere classified - E21.1 7 . R enal osteodystrophy - N25.0 Plan: * Treatment: * Billing Information: * Visit Code: 17793 Office Visit, Est Pt., Level 4. * Procedure Codes: * Electronic signature of Fili Landrum MD on 09/08/2025 at 01:13 PM STUBBER Sign off status: Pending * Provider: Ivis PATEL MD, F.A.C.P, F.A.S.N. Date: Generated for Printing/Faxing/eTransmitting on: 11/08/2024 01:13 PM STUBBER
--- OUTSIDE RECORDS SUMMARY | 2024-10-03 06:30 | XMS_ITS ---
Author Organization [facility] Address [address] [place] [address] Care Team Providers Care Ems Helicopter Pilot Name Role Phone Dayo Landrum Unavailable [phone] Medications Medication SIG (Take, Route, Frequency, Duration) Notes Start Date End Date Status Vitamin D3 125 MCG (5000 UT) as directed Orally Active hydrALAZINE HCl 50 MG 1 tablet with food Orally Three times a day Active Cilostazol 50 MG 1 tablet 30 minutes before or 2 hours after breakfast and dinner Orally Twice a day Active Furosemide 20 MG 1 tablet Orally Once a day Active Metoprolol Tartrate 25 MG 1 tablet with food Orally Twice a day Active Allopurinol 100 MG TAKE 1 TABLET BY ONCE DAILY; Duration: 90 Active Allopurinol 200 MG 1 tablet Orally Once a day; Duration: 90 days 08/08/2024 08/03/2025 Active Nexletol 180 MG 1 tablet Orally Once a day Active Lasix 40 MG 1 tablet Orally twic e a day; Duration: 90 days 08/08/2024 02/04/2025 Active Clopidogrel Bisulfate 75 MG 1 tablet Orally Once a day Active Gabapentin 100 MG 1 capsule Orally Onc e a day; Duration: 30 day(s) 04/25/2024 Active Gabapentin 100 MG 1 capsule Orally Onc e a day; Duration: 90 days 04/25/2024 Active Vitamin D (Ergocalciferol) 1.25 MG (25274 UT) TAKE 1 CAPSULE BY MOUTH ONCE A MONTH; Duration: 90 Active Social History Sex Assigned At : Social History Observation Description Sex Assigned At Female Problems Problem Type SNOMED Code ICD Code Onset Dates Problem Status W/U Status Risk Notes Problem Chronic kidney disease stage 3B (disorder) (521766406) Chronic kidney disease, stage 3b (N18.32) Active confirmed Problem Solitary pulmonary nodule (000207109) Solitary pulmonary nodule (R91.1) Active confirmed Problem Polyneuropathy (71614766) Polyneuropathy, unspecified (G62.9) Active confirmed Encounters Encounter Location Date Provider Diagnosis [place] [facility] [address] [facility] [address] [place] [address] 10/03/2024 Dayo Landrum Chronic kidney disease, stage 3b N18.32 ; Hyperkalemia E87.5 ; Solitary pulmonary nodule R91.1 ; Prediabetes R73.03 and Polyneuropathy, unspecified G62.9 Assessments Encounter Date Diagnosis (ICD Code) Assessment Notes Treatment Notes Treatment Clinical Notes Section Notes 10/03/2024 Chronic kidney disease, stage 3b (ICD-10 - N18.32) 10/03/2024 Hyperkalemia (ICD-10 - E87.5) 10/03/2024 Solitary pulmonary nodule (ICD-10 - R91.1) 10/03/2024 Prediabetes (ICD-10 - R73.03) 10/03/2024 Polyneuropathy, unspecified (ICD-10 - G62.9) Plan Of Treatment Next Appt Details Provider Name:Dayo Landrum , 10/02/2025 01:00:00 PM, [address] [address], [place], [address], Progress Notes * SHANIKA HUMPHREYB:1945 (80 yo F)Acc No.[id number]:10/03/2024 Patient: ED QUIGLEY Provider: Ivis PATEL MD, F.A.C.P, F.A.S.N. :1945 A ge:79 Y S ex:Female Date:10/03/2024 Address:[address] [place], [place] [id number] Subjective: * Chief Complaints: Objective: Assessment: * Assessment: 1. C hronic kidney disease, stage 3b - N18.32 (Primary) 2 . H yperkalemia - E87.5 3 . S olitary pulmonary nodule - R91.1 4 . P rediabetes - R73.03 5 . P olyneuropathy, unspecified - G62.9 Plan: * Billing Information: * Visit Code: 59128 Office Visit, Est Pt., Level 4. * Procedure Codes: * Electronic signature of Fili Landrum MD on 09/08/2025 at 01:13 PM CLOTH DESIZING RANGE OPERATOR CHIEF Sign off status: Pending * Provider: Ivis PATEL MD, F.A.C.P, F.A.S.N. Date: 12/04/2023 Generated for Printing/Faxing/eTransmitting on: 11/08/2024 01:13 PM CLOTH DESIZING RANGE OPERATOR CHIEF
--- OUTSIDE RECORDS SUMMARY | 2025-05-08 07:00 | XMS_ITS ---
Author Organization [facility] Address [address] [place] [address] Care Team Providers Care Clam Dredger Name Role Phone Dayo Landrum Unavailable [phone] Social History Sex Assigned At : Social History Observation Description Sex Assigned At Female Encounters Encounter Location Date Provider Diagnosis [facility] Harding [address] [place] [address] 05/08/2025 Dayo Landrum Essential (primary) hypertension I10 ; Chronic kidney disease, stage 3a N18.31 ; Anemia, unspecified D64.9 ; Other proteinuria R80.8 ; Secondary hyperparathyroidism, not elsewhere classified E21.1 ; Renal osteodystrophy N25.0 ; Solitary pulmonary nodule R91.1 and Polyneuropathy, unspecified G62.9 Assessments Encounter Date Diagnosis (ICD Code) Assessment Notes Treatment Notes Treatment Clinical Notes Section Notes 05/08/2025 Essential (primary) hypertension (ICD-10 - I10) 05/08/2025 Chronic kidney disease, stage 3a (ICD-10 - N18.31) 05/08/2025 Anemia, unspecified (ICD-10 - D64.9) 05/08/2025 Other proteinuria (ICD-10 - R80.8) 05/08/2025 Secondary hyperparathyroidism , not elsewhere classified (ICD-10 - E21.1) 05/08/2025 Renal osteodystrophy (ICD-10 - N25.0) 05/08/2025 Solitary pulmonary nodule (ICD-10 - R91.1) 05/08/2025 Polyneuropathy, unspecified (ICD-10 - G62.9) Plan Of Treatment Next Appt Details Provider Name:Dayo Landrum , 10/02/2025 01:00:00 PM, [address] [facility], [address], [place], [address], Progress Notes * SHANIKA HUMPHREYB:1945 (80 yo F)Acc No.[id number]:05/08/2025 Progress Notes Patient: ED QUIGLEY Provider: Ivis PATEL MD, Siddharth.Maurilio.Esequiel.P, F.A.S.N. :1945 A ge:80 Y S ex:Female Date:05/08/2025 Address:[address] [place] [address] Subjective: * Chief Complaints: * * Medical History: Objective: * Vitals: Assessment: * Assessment: 1. C hronic kidney disease, stage 3a - N18.31 (Primary) 2 . E ssential (primary) hypertension - I10 3 . A nemia, unspecified - D64.9 4 .?Other proteinuria - R80.8 5 . S econdary hyperparathyroidism, not elsewhere classified - E21.1 6 . R enal osteodystrophy - N25.0 7 . S olitary pulmonary nodule - R91.1 8 . P olyneuropathy, unspecified - G62.9 ? Plan: * Treatment: * Billing Information: * Visit Code: 41799 Office Visit, Est Pt., Level 4. * Procedure Codes: * Electronic signature of Fili Landrum MD on 09/08/2025 at 01:12 PM CHIEF DIGITAL OFFICER Sign off status: Pending * Provider: Ivis PATEL MD, Siddharth.Maurilio.C.P, F.A.S.N. Date: 0 05/08/2025 Generated for Printing/Faxing/eTransmitting on: 11/08/2024 01:12 PM CHIEF DIGITAL OFFICER
--- OUTSIDE RECORDS SUMMARY | 2025-06-17 03:00 | XMS_ITS | Continuity of Care Document ---
Author Organization [facility] Address [address] [place] [address] Phone Care Team Providers Care Marine Insurance Claim Examiner Name Role Phone Ben CHAPARRO, FACC, Bebo Unavailable Unavail able Allergies, Adverse Reactions, Alerts Substance Reaction Status Criticality diphenhydramine Active No Informati on codeine Active No Information ACETOMENAPHTHONE Active No Informat ion [id number]-[id number] Reductase Inhibitors Acti ve High Medications Medication Instructions Dosage Effective Dates (start - stop) Status Comments hydralazine 50 mg tablet take 1/2 pill three times a day - Active Nexletol 180 mg tablet take 1 pill a day - Active allopurinol 200 mg tablet take 1 pill a day - Active metoprolol tartrate 25 mg tablet take 1 pill twice a day - Active clopidogrel 75 mg tablet take 1 pill a day - Active cilostazol 50 mg tablet take 1 pill a day - Active FeroSul 325 mg (65 mg iron) tablet take 1 pill a day - Active cyclobenzaprine 10 mg tablet take 1 pill as needed - Active Breztri Aerosphere 160 mcg-9mcg-4.8mcg/actua tion HFA aerosol inhaler inhale 2 puff by inhalation route 2 times every day in the morning and evening 2.00 puff - Active ergocalciferol (vitamin D2) 1,250 mcg (50,000 unit) capsule TAKE 1 CAPSULE BY MOUTH 1 TIME A MONTH - Active furosemide 40 mg tablet take one tablet by mouth daily - Active hydralazine 50 mg tablet No Longer Active Nexletol 180 mg tablet No Longer Active allopurinol 200 mg tablet No Longer Active cilostazol 50 mg tablet No Longer Active clopidogrel 75 mg tablet No Longer Active metoprolol tartrate 25 mg tablet No Longer Active FeroSul 325 mg (65 mg iron) tablet No Longer Active cyclobenzaprine 10 mg tablet No Longer Active Spiriva Respimat 2.5 mcg/actuation solution for inhalation INHALE 2 PUFFS BY MOUTH ONCE DAILY - No Longer Active albuterol sulfate HFA 90 mcg/actuation aerosol inhaler INHALE 1 PUFF BY MOUTH EVERY 4 HOURS NEEDED No Longer Active Procedures Procedure Date Complex e/m visit add on OFFICE/OUTPATIENT VISIT, EST ELECTROCARDIOGRAM, COMPLETE Advance Directives Directive Yes / No Effective Date File Name No Information Encounters Encounter Description Practice Location Reason(s) For Visit Diagnoses Date Provider Providers Copied on Encounter OFFICE/OUTPAT IENT VISIT, EST [facility], [address] [facility], [place], [place], [id number], [place] tel:[phone] [facility] follow up (chief complaint) COPDCarotid stenosisHTN Ben Lagunas. [facility], [place], [place], [id number], [place]. tel:[phone] Referring Provider: Piter Mendoza , [address] [facility] [address], [place], [address]. tel:[phone] [facility], [address] [place] [address], [id number], tel:[phone] [facility] [place] No Information Ben Lagunas. [address] [place], [place], [id number], . tel:[phone] [facility], [address] [place] [address], [id number], tel:[phone] [facility] [place] No Information Benaguila Lagunas. [address] [place], [place], [id number], [place]. tel:[phone] Family History Family Member Type Diagnosis Age At Onset Brother Problem (finding) Kidney disease, cancer Father Problem (finding) mechanical valve Payers Payer name Insurance type Covered democrat ID Authoriza maykelva(s) [facility] MEDICARE ADVANTAGE PPO 16 [id number] Social History Type Description Quantity Date Captured Comments Alcohol Use Details Caffeine Use Details No Tobacco Use Status Ex-cigarette smoker 025 Smoking Status Former smoker Smoking Tobacco Use Details Cigarette: Age Stopped: 69, Years Used 50 Cigarette: 2 Packs per day, Pack Year: 96 Sex Female Vital Signs Date / Time: Height Weight BMI Pulse Rate Blood Pressure Temperature Respiratory Rate Body Surface Area Head Circumference Head Circ. Percentile Wt./[place]. Percentile BMI percentile Pulse Ox Inhaled Ox 9:24 AM 63.00 in 71.668 kg (158.00 lbs) 27.9 9 kg/m eter (2) 70 /min 141/78 mm[Hg] 95 % Chief Complaint And Reason For Visit From encounter dated '06/17/2025 09:00'. follow up (chief complaint). Description: increase in sob [place] swelling of calf's feet and ankles Reason For Referral Reason For Referral No Information Plan Of Treatment Date Type Action Status Appointment Magdalene Wang BOOKED History Of Present Illness Encounter Date Complaint History Of Prese nt Illness follow up increase in sob france swelling of calf's feet and ankles Functional Status Date Functional Assessmen t No Information Instructions Date Instruction Additional Infor mation No Information Assessments Type Assessment Date assessment COPD assessment Carotid stenosis assessment HTN Patient Care Teams Name Effective Dates (start - stop) Status Members No Information
--- OUTSIDE RECORDS SUMMARY | 2025-07-31 10:45 | XMS_ITS ---
Author Organization [facility] Address [address] [place] [address] Care Team Providers Care Public Health Dietitian Name Role Phone Dayo Landrum Unavailable [phone] Social History Sex Assigned At : Social History Observation Description Sex Assigned At Female Encounters Encounter Location Date Provider Diagnosis [facility] [address] [facility] [address] [place] [address] 07/31/2025 Dayo Landrum Chronic kidney disea se, stage 3b N18.32 ; Essential (primary) hypertension I10 ; Anemia, unspecified D64.9 ; Other proteinuria R80.8 ; Secondary hyperparathyroidism, not elsewhere classified E21.1 ; Renal osteodystrophy N25.0 ; Chronic kidney disease, stage 3a N18.31 ; Solitary pulmonary nodule R91.1 and Polyneuropathy, unspecified G62.9 Assessments Encounter Date Diagnosis (ICD Code) Assessment Notes Treatment Notes Treatment Clinical Notes Section Notes 07/31/2025 Chronic kidney disease, stage 3b (ICD-10 - N18.32) 07/31/2025 Essential (primary) hypertension (ICD-10 - I10) 07/31/2025 Anemia, unspecified (ICD-10 - D64.9) 07/31/2025 Other proteinuria (ICD-10 - R80.8) 07/31/2025 Secondary hyperparathyroidism , not elsewhere classified (ICD-10 - E21.1) 07/31/2025 Renal osteodystrophy (ICD-10 - N25.0) 07/31/2025 Chronic kidney disease, stage 3a (ICD-10 - N18.31) 07/31/2025 Solitary pulmonary nodule (ICD-10 - R91.1) 07/31/2025 Polyneuropathy, unspecified (ICD-10 - G62.9) Plan Of Treatment Next Appt Details Provider Name:Dayo Landrum , 10/02/2025 01:00:00 PM, [address] [facility], [facility], [place], [address], Progress Notes * JULIANA HUMPHREYADOB:1945 (80 yo F)Acc No.[id number]:07/31/2025 Progress Notes Patient: ED QUIGLEY Provider: Ivis PATEL MD, F.Maurilio.Esequiel.P, F.A.S.N. :1945 A ge:80 Y S ex:Female Date:07/31/2025 Address:[address] [place] [address] Subjective: * Chief Complaints: Objective: Assessment: * Assessment: 1. C hronic kidney disease, stage 3b - N18.32 2 . E ssential (primary) hypertension - I10 3 . A nemia, unspecified - D64.9 4 . O ther proteinuria - R80.8 5 . S econdary hyperparathyroidism, not elsewhere classified - E21.1 6 . R enal osteodystrophy - N25.0 7 . C hronic kidney disease, stage 3a - N18.31 8 . S olitary pulmonary nodule - R91.1 ?9. P olyneuropathy, unspecified - G62.9 Plan: * Billing Information: * Visit Code: 87214 Office Visit, Est Pt., Level 4. * Procedure Codes: * Electronic signature of Fili Landrum MD on 09/08/2025 at 12:43 PM CAR WASH SUPERVISOR Sign off status: Pending * Provider: Ivis PATEL MD, F.Maurilio.C.P, F.A.S.N. Date: Generated for Printing/Faxing/eTransmitting on: 11/08/2024 12:43 PM CAR WASH SUPERVISOR
--- OUTSIDE RECORDS SUMMARY | 2025-09-08 11:15 | XMS_ITS | Encounter Summary ---
Author Organization [facility] Address [address] [place] [address] Care Team Providers Care Marine Firefighter Name Role Phone Piter Mendoza MD Primary Care Provider Reason for Referral * CT Scan (Routine) - Open Specialty Diagnoses / Procedures Referred By Terry moran Referred To Contact Diagnoses Malignant neoplasm of upper lobe of right lung (CMS/HCC) Procedures CT CHEST WO CONTRAST Jered Mckay MD [address] [place] [address] Phone: tel: fax: Referral ID Status Reason Start Date Expiration Date Visits Re quested Visits Authorized [id number] Open 09/08/2025 10/09/2026 1 1 ETBALL SCOUT Reason for Visit * Reason Comments Cancer Follow Up Encounter Details Date Type Department Care Team (Late st Contact Info) Description 09/08/2025 11:15 AM BASKETBALL SCOUT Office Visit [facility] [address] [address] Jered Mckay MD [address] [place] [address] Malignant neoplasm of upper lobe of right lung (CMS/HCC) (Primary Dx) Social History Tobacco Use Types Packs/Day Years Used Date Smoking Tobacco: Former Cigarettes 0 Q uit: 01/22/2004 Alcohol Use Standard Drinks/Week Comments Not Currently 0 (1 standard drink = 0.6 oz pur e alcohol) Comments No Sex and Gender Information Value Date Recorded Sex Assigned at Not on file Legal Sex Female 9:41 AM CDT Gender Identity Not on file Sexual Orientation Not on file documented as of this encounter Last Filed Vital Signs Vital Sign Reading Time Taken Comments Blood Pressure 139/55 09/08/2025 11:52 AM BASKETBALL SCOUT Pulse 74 09/08/2025 11:49 AM BASKETBALL SCOUT Temperature 36.6 C (97.9 F) 09/08/2025 11:49 AM BASKETBALL SCOUT Respiratory Rate 16 09/08/2025 11:49 AM BASKETBALL SCOUT Oxygen Saturation 90% 09/08/2025 11:49 AM BASKETBALL SCOUT Inhaled Oxygen Concentration - - Weight 70.9 kg (156 lb 6.4 oz) 09/08/2025 11:49 AM BASKETBALL SCOUT Height - - Body Mass Index 27.49 06/09/2022 12:46 PM CDT documented in this encounter Progress Notes * Jered Mckay MD - 09/08/2025 1:02 PM CST HEMATOLOGY / ONCOLOGY PROGRESS NOTE Patient Identification: Name: Magdalene Wang Age: 80 y.o. Sex: female : 1945 DIAGNOSIS T1b N0 M0 stage IA well-differentiated adenocarcinoma status post right upper lobe lobectomy done on December 01, 2021. Tumor measured 1.6 cm in size. T1a N0 M0 stage I A well-differentiated squamous cell carcinoma status post right upper lobe lobectomy done on December 01, 2021. Tumor measured 9 mm in size. All margins negative for invasive carcinoma. All 8 lymph node negative for malignancy. Status post post CT-guided biopsy of the right upper lobe lung done on October 04, 2021. Normocytic anemia History of cervical cancer CURRENT TREATMENT Ferrous sulfate 325 mg twice a day and vitamin B12 1 mg daily TREATMENT HISTORY SUBJECTIVE Patient came to the office for follow-up visit. She denies any chest pain and shortness of breath. Denies any bleeding and bruising. Weight and appetite stable. No other new complaints. Review of system Constitutional: denies fevers, sweats, weight and appetite stable, denies any tiredness and fatigueHEENT: denies sinus congestion, hearing or vision problems Respiratory: complain of dyspnea on exertion and shortness of breath Cardiovascular: denies chest pain, exertional chest pressure/discomfort, nausea, syncope, complain of shortness of breath GI: denies constipation, diarrhea, dsyphagia, reflux symptoms, vomiting, melena, right lower quadrant pain : denies dysuria, frequency, incontinence, urgency Integumentary system: no lymphadenopathy, sweats, flushing Musculoskeletal: Complain of right chest wall discomfort Neurological: denies blurry or disturbed vision, numbness/weakness, dizziness Skin: No lumps, bumps or rashes. 12 point review of system was reviewed Objective: Vital signs in last 24 hours: As per nursing note Exam: General appearance: alert, cooperative, no distress, appears stated age Head: normocephalic, without obvious abnormality, atraumatic Eyes: conjunctivae/corneas clear, EOM's intact Ears: normal external ear canals AU Nose: Nares normal. Septum midline. Mucosa normal. No drainage or sinus tenderness Throat: Lips, mucosa, and tongue normal. Teeth and gums normal Neck: supple, symmetrical, trachea midline. Lungs: clear to auscultation bilaterally Heart: regular rate and rhythm, S1, S2 normal, no murmur, click, rub or gallop Abdomen: soft, non-tender. Bowel sounds normal. No masses, No organomegaly Extremities: extremities normal, atraumatic, no cyanosis or edema Skin: Skin color, texture, turgor normal Lymph nodes: No lymphadenopathy Neuro: No obvious focal deficit Exam as above PATH LABS Labs from July 08, 2021 showed creatinine 1.1 with GFR 49 total bilirubin 0.4 LDH 484 vitamin B12 345 creatinine 1.1 iron 55 saturation 16% ferritin 42.2 WBC 7.7 hemoglobin 7.9 MCV 98.9 [id number]. Labs from December 06 showed WBC 10.2 hemoglobin 8.7 MCV 102 platelet 307,000. Labs from February 15 showed creatinine 0.97 WBC 9.1 hemoglobin 9.5 MCV 94.8 platelet 398,000 ferritin 44iron saturation 13% iron 44 Labs from April 24 showed ferritin 32 iron 35 iron saturation 10% vitamin B12 647 hemoglobin 10.6 creatinine 0.98 Labs from May 12 showed creatinine 1.6 GFR 31 iron 85 hemoglobin 10.8 Labs from 11/24 showed hemoglobin 10.3 creatinine 1.18 Labs from September 08 showed WBC 8 hemoglobin 10.4 platelet 270,000 creatinine 1.3 GFR 40 Assessment: Plan: Patient Active Problem List Diagnosis Date Noted Acute respiratory failure with hypoxia (CMS/HCC) COPD with exacerbation (CMS/HCC) Carotid artery stenosis 12/01/2021 Malignant neoplasm of upper lobe of right lung (CMS/HCC) 11/01/2021 Anemia of chronic renal failure, stage 3 (moderate) (CMS/HCC) 07/08/2021 T1b N0 M0 stage IA well-differentiated adenocarcinoma status post right upper lobe lobectomy done on December 01, 2021. Tumor measured 1.6 cm in size. T1a N0 M0 stage I A well-differentiated squamous cell carcinoma status post right upper lobe lobectomy done on December 01, 2021. Tumor measured 9 mm in size. All margins negative for invasive carcinoma. All 8 lymph node negative for malignancy. Patient had CT chest done on April 13 showed new mediastinal lymph node and small nodules on the right upper lobe lobectomy site measures 7 and 5 mm suspicious for recurrence. PET scan done on May 18 showed no evidence of metastatic disease. Patient is clinically asymptomatic. CT scan chest done on August 31, 2025 showed no evidence of relapse or disease. I will see her back in [address] scan. Anemia of chronic kidney disease. Hemoglobin is stable. Continue oral iron supplements. No need forProcrit injections. Follow-up in 6 months 09/08/2025 Jered Mckay MD Patient's identity confirmed yes Patient gave verbal consent to have these services billed to their insurance and expressed understanding that co-insurance and deductible may apply: yes Patient was located at home. This encounter was completed via two-way synchronous audio only communication. Video technology available to provider, but patient not capable of, or doesn't consent to, use of video. Time spent in discussion with patient: 15 minutes. ETBALL SCOUT documented in this encounter Plan of Treatment Upcoming Encounters Date Type Department Care Team (Late st Contact Info) Description 03/01/2026 11:45 AM CDT Office Visit [facility] Oncology and Hematology - [place] [address] [facility] [address] [place] [address] Jered Mckay MD [address] [facility] [address] [place] [address] Scheduled Orders Name Type Priority Associated Diagnoses Orde r Schedule CBC WITH DIFFERENTIAL Lab Stat Malignant neoplasm of upper lobe of right lung (CMS/HCC) Expected: 2026, Expires: 09/08/2026 COMPREHENSIVE METABOLIC PANEL Lab Stat Malignant neoplasm of upper lobe of right lung (CMS/HCC) Expected: 2026, Expires: 09/08/2026 CT CHEST WO CONTRAST Imaging Routine Malignant neoplasm of upper lobe of right lung (CMS/HCC) Expected: 2026, Expires: 09/08/2026 documented as of this encounter Visit Diagnoses Diagnosis Malignant neoplasm of upper lobe of right lung (CMS/HCC)- Primary Malignant neoplasm of upper lobe, bronchus or lung documented in this encounter Care Teams Marine Firefighter Relationship Specialty Start Date End Date Piter Mendoza MD PCP - General Internal Medicine 07/08/21 documented as of this encounter
[2025-09-08 11:44] LABS: Hematocrit 33.7 % (37.0-47.0); Hemoglobin 10.4 g/dL (12.0-15.0); Immature Granulocyte Percent A 0.3 % (0-0.5); Lymphocytes Absolute Auto 1.79 K/mm3 (0.9-3.2); Mean Corpuscular HGB Conc 30.9 g/dl (32-36); Mean Corpuscular Hemoglobin 31.2 pg (26-34); Mean Corpuscular Volume 101.2 fl (80-100); Nucleated Red Blood Cells Absolute Auto 0.000 K/mm3 (0.0-0.012); Nucleated Red Blood Cells Perc 0.0 % (0.0-0.2); Platelet Count Result 270 k/mm3 (150-375); Red Blood Count 3.33 M/mm3 (4.2-5.4); White Blood Count 8.0 K/mm3 (4.5-10.0)
[2025-09-08 11:47] LABS: Blood Urea Nitrogen 23 mg/dL (8-26); Carbon Dioxide 27 mmol/L (22-30); Chloride 104 mmol/L (98-109); Estimated Glomerular Filt Rate 40; Glucose 93 mg/dL (70-105); Ionized Calcium (POC) 1.18 mmol/L (1.11-1.31); Potassium 4.2 mmol/L (3.5-4.9); Sodium 144 mmol/L (138-146)
[2025-09-08 12:22] LABS: Alanine Aminotransferase 13 U/L (6-35); Albumin Level 4.2 g/dL (3.5-5.1); Alkaline Phosphatase 65 U/L (38-126); Anion Gap 6 mmol/L (4-12); Aspartate Amino Transferase 30 U/L (14-36); Bilirubin,Total 0.5 mg/dL (0.2-1.3); Blood Urea Nitrogen 23 mg/dL (7-17); Calcium 9.1 mg/dL (8.4-10.2); Carbon Dioxide 31 mmol/L (22-30); Chloride 105 mmol/L (98-107); Estimated Glomerular Filt Rate 49; Glucose 90 mg/dL (65-110); Potassium 4.2 mmol/L (3.4-5.0); Sodium 142 mmol/L (137-145); Total Protein 7.1 g/dL (6.3-8.2)
--- OUTSIDE RECORDS SUMMARY | 2025-09-08 13:12 | XMS_ITS | Clinical Summary ---
Author Organization [facility] Address [address] [place] [address] Care Team Providers Care Enologist Name Role Phone Unavailable Primary Care Provider Unavailabl e Source Comments [facility],non-owned Affiliates and Associated Physician Practices is amultiple site organization consisting of ambulatory clinics and hospital sitesin [place], [place], [place] and [place]. This disclosure is being madepursuant to the Care Everywhere program and may not contain all information available regarding this patient. Last updated 18.[facility] Allergies Active Allergy Reactions Criticality Noted Date [...] yrs (1 - 1-dose 75+ series) 2022 DEPRESSION SCREENING 10/15/2024 COVID-19 VACCINE ( - 2024-2 6 season) 2025 INFLUENZA VACCINE (#1) 2025 HEPATITIS B VACCINE [...]
--- OUTSIDE RECORDS SUMMARY | 2025-09-08 13:13 | XMS_ITS | Patient Health Record ---
Author Organization [facility] Address [address] [place] [address] Care Team Providers Care Assistant Professor Of Nursing Name Role Phone Dayo Landrum Unavailable [phone] Reason For Referral No Information Medications Medication SIG (Take, Route, Frequency, Duration) Notes Start Date End Date Status Allopurinol 100 MG TAKE 1 TABLET BY REY TH ONCE DAILY; Duration: 90 Active Nexletol 180 MG 1 tablet Orally [...] Ora lly Once a day Active Vitamin D (Ergocalciferol) 1.25 MG (06351 UT) TAKE 1 CAPSULE BY MOUTH ONCE [...] Status W/U Status Risk Notes Problem Anemia (769918123) Anemia, unspecified (D64.9) Active confirmed Problem Secondary hyperparathyroidism (48242694) Secondary hyperparathyroid ism, not elsewhere classified (E21.1) Active confirmed Problem Polyneuropathy (56576594) Polyneuropathy, unspecified (G62.9) Active confirmed Problem Essential hypertension (86612832) Essential (primary) hypertension (I10) Active confirmed Problem Chronic kidney disease stage 2 (030528751) Chronic kidney disease, stage 2 (mild) (N18.2) Active confirmed Problem Renal osteodystrophy (27084051) Renal osteodystrophy (N25.0) Active confirmed Problem Proteinuria (03128222) Other proteinuria (R80.8) Active confirmed Problem Solitary pulmonary nodule (706466065) Solitary pulmonary nodule (R91.1) Active confirmed Problem Chronic kidney disease stage 3A (disorder) (269698212) Chronic kidney disease, stage 3a (N18.31) Active confirmed Problem Chronic kidney disease stage 3B (disorder) (687122792) Chronic kidney disease, stage 3b (N18.32) Active confirmed Encounters Encounter Location Date Provider Diagnosis [facility] [address] [address] 10/03/2024 Dayo Landrum Chronic kidney disea se, stage 3b N18.32 ; Hyperkalemia E87.5 ; Solitary pulmonary nodule R91.1 ; Prediabetes R73.03 and Polyneuropathy, unspecified G62.9 [address] [address] [place] [address] 05/08/2025 Dayo Landrum Essential (primary) hypertension I10 ; Chronic kidney disease, stage 3a N18.31 ; Anemia, unspecified D64.9 ; Other proteinuria R80.8 ; Secondary hyperparathyroidism, not elsewhere classified E21.1 ; Renal osteodystrophy N25.0 ; Solitary pulmonary nodule R91.1 and Polyneuropathy, unspecified G62.9 [facility] [address] [address] 07/31/2025 Dayo Landrum Chronic kidney disea se, [...] Notes Treatment Clinical Notes Section Notes 10/03/2024 Hyperkalemia (ICD-10 - E87.5) 10/03/2024 Chronic kidney disease, stage 3b (ICD-10 - N18.32) 05/08/2025 Essential (primary) hypertension (ICD-10 - I10) 05/08/2025 Chronic kidney disease, stage 3a (ICD-10 - N18.31) 07/31/2025 Chronic kidney disease, stage 3b (ICD-10 - N18.32) 07/31/2025 Essential (primary) hypertension (ICD-10 - I10) 05/08/2025 Anemia, unspecified (ICD-10 - D64.9) 10/03/2024 Solitary pulmonary nodule (ICD-10 - R91.1) 10/03/2024 Prediabetes (ICD-10 - R73.03) 05/08/2025 Other proteinuria (ICD-10 - R80.8) 07/31/2025 Anemia, unspecified (ICD-10 - D64.9) 07/31/2025 Other proteinuria (ICD-10 - R80.8) 05/08/2025 Secondary hyperparathyroidism , not elsewhere classified (ICD-10 - E21.1) 10/03/2024 Polyneuropathy, unspecified (ICD-10 - G62.9) 05/08/2025 Renal osteodystrophy (ICD-10 - N25.0) 07/31/2025 Secondary hyperparathyroidism , not elsewhere classified (ICD-10 - E21.1) 07/31/2025 Renal osteodystrophy (ICD-10 - N25.0) 05/08/2025 Solitary pulmonary nodule (ICD-10 - R91.1) 05/08/2025 Polyneuropathy, unspecified (ICD-10 - G62.9) 07/31/2025 Chronic kidney disease, stage 3a (ICD-10 - N18.31) 07/31/2025 Solitary pulmonary nodule (ICD-10 - R91.1) 07/31/2025 Polyneuropathy, unspecified (ICD-10 - G62.9) Plan Of Treatment Next Appt Details Provider Name:Dayo Landrum , 10/02/2025 01:00:00 PM, [address] [facility], [facility], [place], [address],
--- OUTSIDE RECORDS SUMMARY | 2025-09-08 13:13 | XMS_ITS | Clinical Summary ---
Author Organization [facility] Address [address] [place] [address] [place] [address] Care Team Providers Care Lapel Baster Name Role Phone Piter Mendoza MD Primary [...] Ellipta 100-25 mcg/dose Disk with Device 04/06/2022 Ac tive budesonide-glyco pyrrolate-formot sharon 160-9-4.8 mcg/actuation HFA Aerosol Inhaler Take 2 Puffs by inhalation. 06/10/2025 Active hydrALAZINE (APRESOLINE) 50 mg tablet Take 50 mg by mouth. 06/17/2025 Active Active Problems Problem Noted Date Diagnosed Date Carotid artery stenosis 12/01/2021 Malignant neoplasm of upper lobe of right lung 0 11/01/2021 Anemia of chronic renal failure, stage 3 (modera te) 07/08/2021 Acute respiratory failure with hypoxia COPD with exacerbation Resolved Problems Problem Noted Date Diagnosed Date Resolved Date Lung nodule 07/08/2021 11/01/2021 Encounters Date Type Department Care Team Description 09/08/2025 11:15 AM SATELLITE INSTALLATION TECHNICIAN Office Visit [facility] Oncology and [facility] [address] [place] [address] Jered Mckay MD Malignant neoplasm of upper lobe of right lung (CMS/HCC) (Primary Dx) 09/01/2025 External Device Data STL ABSTRACTION Provider, Abstract 09/01/2025 Orders Only [facility] and [facility] [address] [place] [address] Jered Mckay MD 08/04/2025 External Device Data STL ABSTRACTION Provider, Abstract 06/16/2025 External Device Data STL ABSTRACTION Provider, Abstract [...] Comments Blood Pressure 139/55 09/08/2025 11:52 AM SATELLITE INSTALLATION TECHNICIAN Pulse 74 09/08/2025 11:49 AM SATELLITE INSTALLATION TECHNICIAN Temperature 36.6 C (97.9 F) 09/08/2025 11:49 AM SATELLITE INSTALLATION TECHNICIAN Respiratory Rate 16 09/08/2025 11:49 AM SATELLITE INSTALLATION TECHNICIAN Oxygen Saturation 90% 09/08/2025 11:49 AM SATELLITE INSTALLATION TECHNICIAN Inhaled Oxygen Concentration - - Weight 70.9 kg (156 lb 6.4 oz) 09/08/2025 11:49 AM SATELLITE INSTALLATION TECHNICIAN Height 160.7 cm (5' 3.25) 06/09/2022 12:46 PM C DT Body Mass Index 27.49 06/09/2022 12:46 PM CDT Plan of Treatment Upcoming Encounters Date Type Department Care Team (Late st Contact Info) Description 03/01/2026 11:45 AM CDT Office Visit [facility] Oncology and Hematology - [place] [address] [facility] [address] [place] [address] Jered Mckay MD [address] [facility] [address] [place] [address] Health Maintenance Due Date Last Done Comments DTAP/TDAP/TD VACCINES (1 - Tdap) 1966 ZOSTER VACCINE (1 of 2) 1997 RSV VACCINE (60+ or ) (1 - 1-dose 75+ series) 2022 Medicare [place] ([place]) Prev entative Visit/Annual Wellness Visit 10/15/2024 INFLUENZA VACCINE (#1) 2025 OSTEOPOROSIS SCREENING 07/05/2026 07/05/2021 COLORECTAL SCREENING Discontinued 07/12/2021 Colorectal Cancer Screening Discontinued PNEUMOCOCCAL VACCINE 50+ YEARS Completed 07/11/2022 , 06/23/2021 FIT-DNA Q 3 years Discontinued FIT/FOBT Q 1 year Discontinued Flex Sig/CT Colonography Q 5 years Discontinued Medical Devices Implanted Type Area Program Clerk Device Identifier Shelf Expiration Date Model / Serial / Lot Sealant Progel Pleural 4ml [id number] - [id number] Implanted:Qty : 1 on 12/01/2021 by Jaime Monsalve MD at [facility] Tissue N/A: Chest CR [employer] [id number] 03/14/2022 [id number] / / [id number] Subclavian Stent Subclavian Hardware Right: Hip Procedures Procedure Name Priority Date/Time Associated Diagnosis Comments CT CHEST W CONTRAST Routine 08/31/2025 7:45 AM SATELLITE INSTALLATION TECHNICIAN from Last 3 Months Results * CT CHEST W CONTRAST (08/31/2025 7:45 AM SATELLITE INSTALLATION TECHNICIAN) Anatomical Region Laterality Modality Chest Computed Tomogra phy Jered Mckay MD CT ORDERABLES Final Result from Last 3 Months Insurance RX [facility] Medicare Part D Advance Directives For more information, please contact: [phone] Documents on File Type Date Recorded 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
--- OUTSIDE RECORDS SUMMARY | 2025-09-08 13:13 | XMS_ITS | Data Portability ---
Author Organization [facility], Main Office Address [address] [place] [address] Care Team Providers Care Park Superintendent Name Role Phone JAQUAN MENDOZA Primary Care Provider JAQUAN MENDOZA Referring Provider DAYO PATEL Operations Asst BEBO CONTRERAS Target Setter MILKA MOCK Loss Prevention Detective GREG MCKAY Hematology/Oncology Assessment Encounter Date Assessment Date Assessment LastModified by Organization Details LastModified Time 05/27/2024 05/27/2024 01/02/2023: BUN 38, Cr 1,48, GFR 34 04/02/2024: BUN 23, GFR 43 05/02/2023: TSH/Lipids: Stable 05/12/2024: BUN/Cr 50/1.60, GFR 31 [email or web address] Not available 05/27/2024 11:34:29 09/30/2024 09/30/2024 01/02/2023: BUN 38, Cr 1,48, GFR 34 04/02/2024: BUN 23, GFR 43 05/02/2023: TSH/Lipids: Stable 05/12/2024: BUN/Cr 50/1.60, GFR 31 09/23/2024: Chol 243, LDL 144 Dr Patel IJ Gluc 104, BUN 37, Cr 1.79, GFR 27 H/H 10.4/33.2, MCV 101.8 A1C 6.0 [email or web address] Not available 09/30/2024 11:17:19 12/30/2024 12/30/2024 01/02/2023: BUN 38, Cr 1,48, GFR 34 04/02/2024: BUN 23, GFR 43 05/02/2023: TSH/Lipids: Stable 05/12/2024: BUN/Cr 50/1.60, GFR 31 09/23/2024: Chol 243, LDL 144 Dr Diallo SARAVIA Gluc 104, BUN 37, Cr 1.79, GFR 27 H/H 10.4/33.2, MCV 101.8 A1C 6.0 11/24/2024: BUN/Cr/GFR 29/1.18 [email or web address] Not available 12/29/2024 15:25:43 05/05/2025 05/05/2025 01/02/2023: BUN 38, Cr 1,48, GFR 34 04/02/2024: BUN 23, GFR 43 05/02/2023: TSH/Lipids: Stable 05/12/2024: BUN/Cr 50/1.60, GFR 31 09/23/2024: Chol 243, LDL 144 Dr Diallo SARAVIA Gluc 104, BUN 37, Cr 1.79, GFR 27 H/H 10.4/33.2, MCV 101.8 A1C 6.0 11/24/2024: BUN/Cr/GFR 29/1.18/44 04/30/2025: A1C 5.8 BUN 24, glob 2.5L, TP WNL H/H 10.3/33.3, MCV 102.8 45 minutes spent with her from 8.30am till 9.15am, labs reviewed, referrals provided [email or web address] Not available 05/05/2025 09:54:37 06/10/2025 06/10/2025 Assessment: Mod ACO RUL adenocarcinoma s/p resection @ [facility] 12/01/21 (+) VERENA 1:160 speckled, (+) anti-SSA/SSB, (+) CCP abs Bibasilar atelectasis Plan: The following were reviewed and explained to the patient: BLE doppler ultrasound 07/05/23 no DVT bilaterally Lab data 06/29/21 (+) VERENA 1:160 speckled, (+) anti-SSA/SSB, (+) CCP abs, multiple environmental allergies RUL CT-guided lung biopsy 10/04/21 adenocarcinoma PET/CT 07/07/21 RUL pulmonary nodule with 2.3 SUV low FDG uptake PET/CT 05/18/[address] 06/23/21 2 RUL 9.5 mm and 7 mm pulm nodules, bibasilar atelectasis Chest CT 09/20/21 RUL 10 mm and 9 mm pulm nodules Chest CT 04/13/22 right mediastinal LNs, RUL nodules, right hilar fullness Chest CT 03/05/23 partial right pneumonectomy, emphysema, pulm HTN, no cancer Chest CT 05/31/23 RUL/RLL infiltrates Chest CT 07/02/[address] 05/07/[address] 05/12/[address] 11/24/24 RUL resection PFT 08/22/21 FEV1 1.40 L (70%), BD 330 mL = 31%, TLC 5.30 L (116%), RV 3.38 L (179%), DLCO 55%, DLCO/VA 91% PFT 05/07/23 FEV1 1.15 L (60%), BD 70 mL = 6%, TLC 4.92 L (108%), RV 2.65 L (139%), DLCO 42%, DLCO/VA 80% PFT 05/07/24 FEV1 1.17 L (63%), BD -40 mL = -3%, TLC 4.30 L (99%), RV 1.93 L (105%), DLCO 42%, DLCO/VA 73% PFT 05/20/25 FEV1 0.95 L (50%), BD 80 mL = 9%, TLC 6.66 L (136%), RV 4.61 L (201%), DLCO 46%, DLCO/VA 65%recurrence or metastases Chest CT 05/10/26 10 am. Complete PFT 05/10/26 9 am. Patient declined rheumatologic evaluation for the time being . Continue incentive spirometer x 5 minutes every 2 hours while awake to reverse and prevent further atelectasis. Advised to continue not to smoke. Continue albuterol HFA as needed. She declined to use Breo Ellipta and Advair HFA due to jitteriness. Change Spiriva Respimat 2 puffs daily to Breztri aerosphere 160/9/4.8 mcg 2 puffs BID. The patient does not know how to accurately administer the inhalers. Today, the patient was shown how to take these medications. The proper technique for delivering these medications was instructed. The patient expressed a clear understanding and demonstrated back how to use these medications. Without the proper technique, the patient will not reap the benefits of these medications as the contents will not reach the lower airways as intended to be. Adherence to therapy is advocated. Nonadherence may lead to treatment failure, further progression of the condition, and other complications. Hospitals admissions are often the result of individuals not taking prescription medications accurately. Alternatively, greater adherence to medication regimens have shown to lower rates of hospitalization and decrease total medical costs in patients with chronic medical conditions. Advocated influenza vaccination annually and pneumonia vaccination in 2021. Advocated weight loss through diet and exercise. Patient's ideal body weight according to height and gender is up to 125 lbs. Encouraged patient to adjust caloric intake to maintain/achieve ideal body weight, emphasizing on fruits, vegetables, whole grains, and fat-free or low-fat products. These include lean meats, poultry, fish, beans, eggs, and nuts and foods that are low in saturated fats, trans-fats, cholesterol, salt (sodium), and glycemic index. Stressed the importance of regular exercise up to the patient's capacity limits. In this case, we recommend regular (4 x a week or more) walking or other light activity. Patient to monitor BP daily and bring records to PCP for further management. Follow-up: 1 year, May 2026 Not available 06/10/2025 10:38:25 Plan of Treatment Reminders Order Date Submit Date Provider Last Modified By Organization Details Last Modified Time Details Appointments Medicare Wellness 15 2025 09:30A Jazz layton MD Not available Not available Not available Follow Up 30 2025 08:30A M Milka Mock MD Not available Not available Not available Lab glycohemo globin, total, blood 2024 025 [facility] (Lab), [address] [place], [address], 05/05/2025 15:32:10 microalbu min, urine [address] (Lab), [address] [place], [address], 05/05/2025 15:32:10 lipid panel, serum 2024 025 [facility] (Lab), [address] [place], [address], 07/29/2025 13:17:24 CBC w/ auto diff [address] (Lab), [address] [place], [address], 05/05/2025 15:32:09 TSH, serum or plasma 2024 025 [facility] (Lab), [address] [place], [address], 07/29/2025 13:27:38 T4, free, serum 2024 025 [facility] (Lab), [address] [place], [address], 07/29/2025 13:26:32 CMP, serum or plasma [address] (Lab), [address] [place], [address], 05/05/2025 15:32:09 vitamin D, 25-hydrox y, total, serum [address] (Lab), [address] [place], [address], 05/05/2025 15:32:10 glycohemo globin, total, blood 2024 025 [facility] (Lab), [address] [place], [address], 05/01/2025 11:37:20 microalbu min, urine 2024 025 [facility] (Lab), [address] [place], [address], 04/30/2025 19:55:10 lipid panel, serum 2024 025 [facility] (Lab), [address] [place], [address], 04/30/2025 17:13:57 CBC w/ auto diff 2024 025 [facility] (Lab), [address] [place], [address], 04/30/2025 14:45:02 TSH, serum or plasma 2024 025 [facility] (Lab), [address] [place], [address], 04/30/2025 17:51:01 T4, free, serum 2024 025 [facility] (Lab), [address] [place], [address], 04/30/2025 17:33:58 CMP, serum or plasma 2024 025 [facility] (Lab), [address] [place], [address], 04/30/2025 17:13:52 vitamin D, 25-hydrox y, total, serum [email or web address] (Lab), [address] [place], [address], 07/02/2025 08:28:02 glycohemo globin, total, blood 2023 024 [facility] (Lab), [address] [place], [address], 11/24/2024 21:53:55 microalbu min, urine [address] (Lab), [address] [place], [address], 04/07/2025 09:53:49 lipid panel, serum 2023 024 [facility] (Lab), [address] [place], [address], 11/24/2024 22:38:48 CBC w/ auto diff 2023 024 [facility] (Lab), [address] [place], [address], 11/24/2024 20:45:40 TSH, serum or plasma 2023 024 [facility] (Lab), [address] [place], [address], 11/24/2024 22:38:48 T4, free, serum [address] (Lab), [address] [place], [address], 03/30/2025 09:17:08 CMP, serum or plasma 2023 024 [facility] (Lab), [address] [place], [address], 11/24/2024 22:38:48 vitamin D, 25-hydrox y, total, serum 2023 024 [facility] (Lab), [address] [place], [address], 11/24/2024 22:38:48 lipid panel, serum 2023 024 [facility] (Lab), [address] [place], [address], 09/23/2024 11:17:55 CBC w/ auto diff [address] (Lab), [address] [place], [address], 11/25/2024 09:12:16 TSH, serum or plasma [address] (Lab), [address] [place], [address], 11/25/2024 09:12:16 T4, free, serum 2023 024 [facility] (Lab), [address] [place], [address], 09/23/2024 11:54:45 CMP, serum or plasma [address] (Lab), [address] [place], [address], 11/25/2024 09:12:16 vitamin D, 25-hydrox y, total, serum [address] (Lab), [address] [place], [address], 11/25/2024 09:12:16 Referral general surgeon referral - Please call patient to schedule an appointme nt. Thank you. 2024 025 [email or web address] Coleman Torres MD, [address] [facility], [address], [place], [address], 08/06/2025 09:09:27 ophthalmo logist referral - Please call patient to schedule an appointme nt. Thank you. 2024 025 [facility], [address] [facility] [place], [address], 08/06/2025 09:09:27 podiatris t referral - Please call patient to schedule an appointme nt. Thank you. 2024 025 [email or web address] Iban Kenny [facility], [address], [address], [place], [address], 08/06/2025 09:09:27 pulmonolo gist referral - Please call patient to schedule an appointme nt. Thank you. 2024 025 [email or web address] Milka Mock MD, [address] [facility], [place], [address], 08/06/2025 09:09:27 nephrolog ist referral - Please call patient to schedule an appointme nt. Thank you. 2024 025 [email or web address] Dayo Patel MD (Nephrology, [address], [address], [place], [address], 08/10/2025 12:42:52 cardiolog ist referral - Please call patient to schedule an appointme nt. Thank you. 2024 025 [email or web address] Bebo Cotnreras, [address], [place], [address], 08/06/2025 09:09:26 ophthalmo logist referral - Please call patient to schedule an appointme nt. Thank you. 2024 025 [email or web address] Ritu León MD, [address] [facility], [address], [place], [address], 03/30/2025 10:09:22 podiatris t referral - Please call patient to schedule an appointme nt. Thank you. 2024 025 [email or web address] Bairon Pretty [facility], [address], [address], [place], [address], 03/30/2025 10:09:23 hematolog ist referral - Please call patient to schedule an appointme nt. Thank you. 2024 025 [email or web address] Greg Mckay MD, [address], [place], [address], 03/30/2025 10:09:20 nephrolog ist referral - Please call patient to schedule an appointme nt. Thank you. 2024 025 [email or web address] Patel MD (Nephrology, [address], [address], [place], [address], 03/31/2025 08:38:23 cardiolog ist referral - Please call patient to schedule an appointme nt. Thank you. 2024 025 [email or web address] Fitztrixiebee Contreras, [address], [place], [address], 03/30/2025 10:09:21 ophthalmo logist referral - Please call patient to schedule. 2023 024 [email or web address] Ritu León MD, [address] [facility] [address], [address], 06/02/2025 08:35:59 podiatris t referral - Please call patient to schedule. 2023 024 [email or web address] Bairon Pretty DPM, [address] [facility] [address], [address], 06/02/2025 08:35:59 hematolog ist referral 2023 024 [email or web address] Greg Mckay MD, [address], [place], [address], 09/30/2024 15:13:31 nephrolog ist referral - Please call patient to schedule. 2023 024 [email or web address] Patel MD (Nephrology, [address], [address], [place], [address], 06/08/2025 10:03:12 cardiolog ist referral 2023 024 [email or web address] Bebo Contreras, [address], [place], [address], 09/30/2024 15:13:32 ophthalmo logist referral 2023 024 [email or web address] Ritu León MD, [address] [facility], [address], [place], [address], 09/30/2024 15:13:59 hematolog ist referral 2023 024 [email or web address] Greg Mckay MD, [address], [place], [address], 06/26/2024 15:31:26 nephrolog ist referral 2023 024 [email or web address] Dayo Patel MD (Nephrology, [address], [address], [place], [address], 07/24/2024 09:30:30 cardiolog ist referral 2023 024 [email or web address] Bebo Contreras, [address], [place], [address], 07/24/2024 09:30:07 Procedures None recorded. Surgeries None recorded. Imaging CT, chest, w/o contrast 2024 026 Not available 06/10/2025 10:24:11 DEXA, axial skeleton - Please call patient to schedule. 2024 025 [email or web address] [facility], [address] [facility] , [facility] [address], [place], [address], 03/30/2025 15:48:23 DEXA, axial skeleton 2023 024 [email or web address] [facility] ([facility]), [address] [place], [address], 09/30/2024 15:30:46 DEXA, axial skeleton 2023 024 [email or web address] [facility] ([facility]), [address] [place], [address], 11/24/2024 18:15:43 Medication Orders albuterol sulfate HFA 90 mcg/actua tion aerosol inhaler 2024 025 [id number], [address], [place], [place], [id number], 06/10/2025 10:24:18 Breztri Aerospher e 160 mcg-9mcg- 4.8mcg/ac tuation HFA aerosol inhaler 2024 025 [facility]/Pharmacy #[id number], [address], [place], [address], 06/10/2025 10:24:13 Nexletol 180 mg tablet 2024 025 [facility] [employer] #78048, [address] [place], [place], [id number], 05/05/2025 09:50:31 Nexletol 180 mg tablet 2023 024 [id number], [address] [place], [place], [id number], 05/27/2024 11:39:07 Patient TargetsNo targets recorded. Patient Instructions Encounter Date Encounter Id Patient Instructions Last Modified By Organization Details Last Modified Time 05/27/2024 [id number] dementia rating scale-2* [email or web address] Not available 05/27/2024 12:07:27 alcohol misuse* [email or web address] Not available 05/27/2024 12:07:36 depression screening* [email or web address] Not available 05/27/2024 12:07:46 Timed Up and Go test (TUG)* [email or web address] Not available 05/27/2024 12:08:01 multi-dimensiona l health assessment questionnaire* [email or web address] Not available 05/28/2024 18:03:43 Personalized a [facility] Plan and Screening Recommendations Advance Directives - Do you have one? Yes Advance Directives - Do we have your advance directive on file in your health record? Yes Primary Prevention/Interven tion (prevents or decreases the chance of common diseases from occurring) Smoking Risk: Non Smoker Alcohol Misuse Screening: Negative Weight: Overweight try to lose 10% of your body weight Physical activity: Need more exercise/physical activity decrease sitting time to no more than 5hr/day Nutrition: Average Refer to attached handout Heart-Healthy Diet: After Your Visit Fall Risk (screened today): Intermediate Refer to attached handout Preventing Falls: After your Visit Vaccines Pneumococcal: No further needed Influenza: Your next one in the fall of this year Chronic Disease Risks Stroke: Intermediate Risk Follow Heart Healthy Diet Heart Attack: Intermediate Risk Follow Heart Healthy Diet Clogging of the Arteries: Intermediate Risk Follow Heart Healthy Diet Diabetes: Low Risk I have no recommendations Secondary Prevention/Interven tion (detects treatable diseases before they may cause symptoms, disability, or ) Breast Cancer Screening with mammogram: Your next mammogram: 1 year Cervical/Uterine/Ov anita Cancer Screening: Recommended today, but you have declined Osteoporosis Screening: Ordered Date Screening Last Performed: 2020 Colon Cancer Screening: Colonoscopy Date Screening Last Performed: 2020 Eye Disease Screening: Recommended today Dementia Risk: Low I have no recommendations Depression Screening: Negative [email or web address] Not available 05/27/2024 12:10:53 09/30/2024 [id number] diabetic eye exam* [email or web address] Not avail able 03/30/2025 08:18:38 12/30/2024 [id number] diabetic eye exam* [email or web address] Not avai lable 06/29/2025 08:19:13 06/10/2025 [id number] complete PFT w/ post bronchodilator spirometry* Not available 06/10/2025 10:36:17 Reason for Referral Referring Physician: Jaquan Mendoza, Internal Medicine, Encounter Date: 05/27/2024 Operations Asst Referral for ronic kidney disease Referring Physician: Jaquan Mendoza, Internal Medicine, Encounter Date: 05/27/2024 Target Setter Referral for Co ronary arteriosclerosis Referring Physician: Savi Lee Medicine, Encounter Date: 05/27/2024 [employer] Salesperson Referral for Bilateral cataracts Referring Physician: Jaquan Mendoza Internal Medicine, Encounter Date: 05/27/2024 Referring Physician: Jaquan Mendoza Internal Medicine, Encounter Date: 09/30/2024 Operations Asst Referral for Ch ronic kidney disease Please call patient to schedule. Referring Physician: Savi Lee, Encounter Date: 09/30/2024 Target Setter Referral for Co ronary arteriosclerosis Referring Physician: Savi Lee, Encounter Date: 09/30/2024 [employer] Salesperson Referral for Bilateral cataracts Please call patient to schedule. Referring Physician: Savi Lee, Encounter Date: 09/30/2024 Field Cane Scale Clerk Referral for Pred iabetes Please call patient to schedule. Referring Physician: Savi Lee, Encounter Date: 09/30/2024 Please call patient to sched ule an appointment. Thank you. Referring Physician: Savi Lee, Encounter Date: 12/30/2024 Operations Asst Referral for Ch ronic kidney disease Please call patient to schedule an appointment. Thank you. Referring Physician: Savi Lee, Encounter Date: 12/30/2024 Target Setter Referral for Co ronary arteriosclerosis Please call patient to schedule an appointment. Thank you. Referring Physician: Savi Lee, Encounter Date: 12/30/2024 [employer] Salesperson Referral for Bilateral cataracts Please call patient to schedule an appointment. Thank you. Referring Physician: Savi Lee, Encounter Date: 12/30/2024 Field Cane Scale Clerk Referral for Pred iabetes Please call patient to schedule an appointment. Thank you. Referring Physician: Jaquan Mendoza Internal Medicine, Encounter Date: 12/30/2024 Operations Asst Referral for Ch ronic kidney disease Please call patient to schedule an appointment. Thank you. Referring Physician: Jaquan Mendoza Internal Medicine, Encounter Date: 05/05/2025 Target Setter Referral for Co ronary arteriosclerosis Please call patient to schedule an appointment. Thank you. Referring Physician: Jaquan Mendoza [facility] Medicine, Encounter Date: 05/05/2025 Cosmetics And Toilet[employer] Salesperson Referral for Bilateral cataracts Please call patient to schedule an appointment. Thank you. Referring Physician: Jaquan Mendoza [facility] Medicine, Encounter Date: 05/05/2025 Field Cane Scale Clerk Referral for Pred iabetes Please call patient to schedule an appointment. Thank you. Referring Physician: Jaquan Mendoza [facility] Medicine, Encounter Date: 05/05/2025 Loss Prevention Detective Referral for C hronic obstructive pulmonary disease Please call patient to schedule an appointment. Thank you. Referring Physician: Jaquan Mendoza [facility] Medicine, Encounter Date: 05/05/2025 General Surgeon Referral for Lesion of skin of face Please call patient to schedule an appointment. Thank you. Referring Physician: Jaquan Mendoza [facility] Medicine, Encounter Date: 05/05/2025 Results Created Date Observation Date Name Description Value Unit Range Abnormal Flag Note LastModifiedBy Organization Detail LastModifiedTime 04/30/20 24 04/30/2024 [place] [facility] [address] [facility] [address] [facility], [place] [address] Francisca t Name: MAGDALENE FERNÁNDEZ Access ion #: [id number] Sex: F : 1944 2 1 Locati on: RAD Attend ing Physic ena: HOLLY BELLRosemaryMELISSA Townsend Orderi ng Physic ena: YI BELL Exam Date: 10:11 AM Exam Name: MG CRUZ BREAST SOCORRO BILAT Admitt ing Diagno sis(es ): MAMMOG JOSEE REPORT - FINAL EXAM: MG CRUZ BREAST SOCORRO BILAT HISTOR Y: screen ing mammog theodora 79-yea r-old female with no curren t breast compla ints. COMPAR LEXII: 2020 TECHNI QUE: Bilate ral CC and MLO views of the breast s were perfor med. Digita l Mammog josee images were obtain ed. CAD (compu ter assist ed detect ion) was utiliz ed. 3D Digita l breast tomosy nthesi s was perfor med and used in the interp retati on of images . FINDIN GS: The breast s are almost entire ly fatty. No masses , asymme tries, suspic ious calcif icatio ns, or remi ectura l Page 1 of 2 [facility] Name: MAGDALENE FERNÁNDEZ Access ion #: [id number] Sex: F : 1944 2 1 Exam Date: 10:11 AM Exam Name: MG CRUZ BREAST SOCORRO BILAT Admitt ing Diagno sis(es ): distor tion are seen. IMPRES YASH: BIRADS 1: Assess ment comple te. Negati ve. Recomm end annual screen ing mammog josee. Accord ing to the [employer], yearly mammog aster are recomm ended starti ng at age 40 and contin uing as long as the woman is in good health . Clinic al Breast Exam should be part of the period health exam-a bout every 3 years for women in their 20s and 30s and every year for women 40 and over. Breast self-e xam is an option for women in their 20s. Any breast change noted on the breast self-e xam she would be report ed prompt ly to the patien t's health care provid er. A negati ve mammog josee report should not discou rage follow -up or biopsy of a clinic ally signif icant findin g and/or abnorm ality. Dense breast tissue may obscur e small neopla sms. This patien t has been entere d into a mammog josee remind er system with a target date for her next mammog theodora. Create d and electr onical ly signed by: Lucas deal MD Signed Date: 10:37 AM (CT) Dictat ed by: Lucas deal MD DD: 10:37 AM (CT) DT: 10:37 AM (CT) Page 2 of [address] (Imaging) [address] [place], [address], 07/25/2024 11:21:40 04/30/20 24 04/30/2024 MAMMO , scree tejinder, digit al, bilat eral No observ ation record ed. [address] [place], [address], 07/25/2024 11:21:41 05/07/20 24 05/07/2024 CT, chest , w/o contr ast No observ ation record ed. [address] ([facility]) [address] [place], [address], 06/08/2025 18:51:55 05/07/20 24 05/07/2024 compl ete PFT w/ post [facility] hodil ator aretha metry * No observ ation record ed. [facility] ([facility] Sched[facility]) [address] [place], [address], 05/07/2024 17:57:03 05/13/20 24 05/12/2024 CT, chest , w/o contr ast No observ ation record ed. [address] ([facility]) [address] [place], [address], 06/08/2025 18:49:04 05/22/20 24 05/22/2024 US, echoc ardio gram, trans thora cic, compl ete No observ ation record ed. [address] [facility] [address], [place], [address], 06/08/2025 18:45:59 10/30/19 25 10/27/2024 US, ericka hernandez id arter y No observ ation record ed. [address] [facility] [address], [place], [address], 06/08/2025 18:45:27 11/24/19 25 11/24/2024 CT, chest , w/o contr ast No observ ation record ed. [place] [address], [place], [address], 06/08/2025 18:44:13 06/03/20 25 06/03/2025 DEXA, axial skele ton [facility] [address] [place] [address] [phone] RADIOL OGY REPORT _ Francisca moran Name: SAMRA Uribe Date Of : [birth year] Date Of Study: 025 Ref. Physic ena: ALBERTO Townsend MD _ EXAMIN ATION: XR DEXA-H IPS PELVIS SPINE CLINIC AL INDICA TION: Routin e COMPAR LEXII: 2020. TECHNI QUE: Dual-e nergy X-ray absorp tiomet ry (DEXA) scan was perfor med to assess bone minera l densit y at the lumbar spine and bilate ral femora . FINDIN GS: 1. Lumbar spine (L1-L4 ): BMD: 1.599 g/cm2 T-Scor e: 3.3 Z-Scor e: 4.9 2. Left Total Hip: BMD: 1.146 g/cm2 T-Scor e: 1.1 Z-Scor e: 2.9 The WHO fractu re risk assess ment (FRAX) was utiliz ed and the 10 year probab ility of a major osteop orotic fractu re in this patien t is estima beto to be 8.3% and 10 year probab ility of a hip fractu re in this patien t is estima beto to be 0.6%. IMPRES YASH: 1. Based on World Health Organi zation (WHO) criter ia, this patien t falls within normal range of bone minera l densit y at lumbar spine and left hip levels . 2. Minima lly improv ed T-scor e/bone minera l densit y at lumbar spine level and minima lly reduce d T-scor e/bone minera l densit y at left hip level (altho ugh within normal range) , when compar ed to prior DEXA examin ation dated 2020. Relate d Inform ation: 1. The T-scor e is relati ve to peak bone mass in early adulth ood, while the Z-scor e is relati ve to indivi duals of the same age and sex. 2. The intern retail ationa l societ y for Clinic al Densit ometry recomm ends catego rizing the patien t accord ing to the lowest T-scor e from the total L-spin e , total hip and femora l neck utiliz ing the follow ing World Health Organi zation Criter ia: Normal range: T-scor e of - 1.0 or above. Low bone mass: T-scor e of less than-1 .0 but greate r than -2.5. Osteop orosis : T-scor e of -2.5 or below. 3. Depend ing on the above result s, clinic al manage ment may includ e calciu m and vitami n D supple mentat ion, weight bearin g exerci se and drug therap y, includ ing bispho sphona francesca, Evista or hormon al replac ement. Also consid er follow -up DEXA scan in 1-2 years if clinic ally indica beto. Prefer ably this should be done at the same facili ty. More freque nt scanni ng may be requir ed in the settin g of drug-i nduced bone loss or metabo lic bone diseas e. Electr onical ly Signed 025 20:09 Rowan Worley [facility] (Imaging) [address] [place], [address], 06/03/2025 21:11:19 06/04/20 25 05/20/2025 compl ete PFT w/ post [facility] hodil ator aretha metry * No observ ation record ed. [facility] (One Call Scheduling) [address] [place], [address], 06/04/2025 19:22:01 06/08/20 25 06/03/2025 scree tejinder breas t socorro, bilat [facility] [address] [place], [place] [id number] [phone] Patien t Name: MAGDALENE FERNÁNDEZ Access ion #: [id number] Sex: F : 1944 2 1 Dictat ed By: Soila Caba Attend ing Physic ena: YI BELL Orderindra mobley Physic ena: YI BELL Exam Date: 2024 09:25 AM Exam Name: MG CRUZ BREAST SOCORRO BILAT Admitt ing Diagno sis(es ): PROCED URE: SCREEN ING MAMMOG THEODORA WITH TOMOSY NTHESI S REASON FOR EXAM: screen ing mammog theodora COMPAR LEXII: MG SCRN BREAST SOCORRO BILAT 3D on DOS: 1 TECHNI QUE: Bilate ral CC and MLO views obtain ed. Images were obtain ed using a Digita l Tomosy nthesi s Unit. Standa rd 2D and 3D Tomosy nthesi s images were review ed. This examin ation was analyz ed using Lunit Insigh t DBT/MM G in additi on to a radiol ogist review , an AI softwa re develo ped to enhanc e the effect ivenes s of breast cancer screen ing with mammog josee. FINDIN GS: BREAST COMPOS ITION: A - The breast s are almost entire ly fatty. In the right breast , no asymme trical parenc hymal patter n, remi ectura l distor tion, pleomo rphic microc alcifi cation s or masses . In the left breast , no asymme trical parenc hymal patter n, remi ectura l distor tion, pleomo rphic microc alcifi cation s or masses . IMPRES YASH: No findin gs of malign elise. RECOMM ENDATI ON: Recomm end annual mammog theodora. ASSESS MENT: Page 1 [facility] [address] [place] [address] Patien t Name: MAGDALENE FERNÁNDEZ Access ion #: [id number] Sex: F : 1944 2 1 Dictat ed By: Soila Caba Attend ing Physic ena: ALBERTO ROSS Orderi Physic ena: YI BELL Exam Date: 2024 09:25 AM Exam Name: MG ANTHONY BREAST SOCORRO BILAT Admitt ing Diagno sis(es ): BIRADS : 1 - Negati ve Electr onical ly Signed by: Soila Caba at 2024 10:52: 03 AM Page 2 INTERFACE [facility] (Imaging) [address] [place], [place], [facility], 06/08/2025 11:54:13 08/31/2008/31/2025 anamaria brown t No observ ation record ed. [facility] [address], [place], [address], 08/31/2025 15:32:11 Result Notes Documentation Provider Name and Address Organization Details Recorded Time Dexa, Axial Skeleton : [facility] [address] [place] [address] [phone] RADIOLOGY REPORT ____ Patient Name: MILAGRO Uribe Date Of : 1945 Date Of Study: 06/03/2025 Ref. Physician: OMERO PARTIDA MD ____ EXAMINATION: XR DEXA-HIPS PELVIS SPINE CLINICAL INDICATION: Routine COMPARISON: 07/05/2021. TECHNIQUE: Dual-energy X-ray absorptiometry (DEXA) scan was performed to assess bone mineral density at the lumbar spine and bilateral femora. FINDINGS: 1. Lumbar spine (L1-L4): BMD: 1.599 g/cm2 T-Score: 3.3 Z-Score: 4.9 2. Left Total Hip: BMD: 1.146 g/cm2 T-Score: 1.1 Z-Score: 2.9 The WHO fracture risk assessment (FRAX) was utilized and the 10 year probability of a major osteoporotic fracture in this patient is estimated to be 8.3% and 10 year probability of a hip fracture in this patient is estimated to be 0.6%. IMPRESSION: 1. Based on World Health Organization (WHO) criteria, this patient falls within normal range of bone mineral density at lumbar spine and left hip levels. 2. Minimally improved T-score/bone mineral density at lumbar spine level and minimally reduced T-score/bone mineral density at left hip level (although within normal range), when compared to prior DEXA examination dated 07/05/2021. Related Information: 1. The T-score is relative to peak bone mass in early adulthood, while the Z-score is relative to individuals of the same age and sex. 2. The international society for Clinical Densitometry recommends categorizing the patient according to the lowest T-score from the total L-spine , total hip and femoral neck utilizing the following World Health Organization Criteria: Normal range: T-score of - 1.0 or above. Low bone mass: T-score of less than-1.0 but greater than -2.5. Osteoporosis: T-score of -2.5 or below. 3. Depending on the above results, clinical management may include calcium and vitamin D supplementation, weight bearing exercise and drug therapy, including bisphosphonates, Evista or hormonal replacement. Also consider follow-up DEXA scan in 1-2 years if clinically indicated. Preferably this should be done at the same facility. More frequent scanning may be required in the setting of drug-induced bone loss or metabolic bone disease. Electronically Signed 06/03/2025 20:09 Edis Worley Not Available [facility] 06/03/2025 21:11:19 Problems Name Problem SNOMED Code Status Onset Date Resolution Date Notes Provider Name and Address Organization Details Recorded Time Hyperlipide nataly 73247707 Active 2021 Milka Mock MD [address], [place], [address], [employer] 19:02:12 Coronary arterioscle rosis 46770696 Active 2022 Milka Mock MD [address], [address], [place], [address], [employer] 19:02:14 Bilateral cataracts 63315214 Active 2022 Milka Mock MD [address], [place], [address], [employer] 19:02:24 Chronic kidney disease 376937070 Active 2022 Milka Mock MD [address], [address], [place], [address], [employer] 19:02:17 Atelectasis 68122946 Active 2022 Milka Mock MD [address], [address], [place], [address], [employer] 19:02:25 Anti-nuclea r factor detected 927115229 Active 2022 Mlika Mock MD [address], [address], [place], [address], [employer] 19:02:28 Adenocarcin srinivasa of right lung 7295694220812 9100 Active 2022 Milka Mock MD [address], [address], [place], [address], [employer] 19:02:31 Moderate chronic obstructive pulmonary disease 597201660 Active 2023 Milka Mock MD [address], [address], [place], [address], [employer] 19:02:00 Anemia 198246969 Active 2023 Milka Mock MD [address], [address], [place], [address], [employer] 19:03:09 Prediabetes 708229798 Active 2023 Milka Mock MD [address], [address], [place], [address], [employer] 19:01:58 Notes:[facility] Chest CT 05/07/[address] 05/12/[address] 11/24/24 RUL resection PFT 08/22/21 FEV1 1.40 L (70%), BD 330 mL = 31%, TLC 5.30 L (116%), RV 3.38 L (179%), DLCO 55%, DLCO/VA 91% PFT 05/07/23 FEV1 1.15 L (60%), BD 70 mL = 6%, TLC 4.92 L (108%), RV 2.65 L (139%), DLCO 42%, DLCO/VA 80% PFT 05/07/24 FEV1 1.17 L (63%), BD -40 mL = -3%, TLC 4.30 L (99%), RV 1.93 L (105%), DLCO 42%, DLCO/VA 73% PFT 05/20/25 FEV1 0.95 L (50%), BD 80 mL = 9%, TLC 6.66 L (136%), RV 4.61 L (201%), DLCO 46%, DLCO/VA 65% Medical History: R>L ICA stenosis Left subclavian artery stenosis L>R cataracts Rhinitis to multiple environmental allergens with postnasal drip Eosinophils 230/uL IgE 235 IU/mL Alpha-1 antitrypsin PiMM 206 mg% Mod ACO, 2 Lpm exertional O2 c/o [employer] Bibasilar atelectasis Stage 1 RUL adenocarcinoma Sjogren syndrome (+) anti-SSA/SSB (+) VERENA 1:160 speckled (+) CCP antibodies Obesity PASP 43 mmHg Mild MR/TR Hypertension EF 55% Hyperlipidemia on Nexletol Prediabetes CAD IRMA Hepatic steatosis Sigmoid diverticulosis Mesenteric panniculitis Stage 3 CKD Macrocytic anemia Vit D deficiency Cervicothoracic DDD Thoracic spondylosis Left hip OA Gout PVD Procedure History: Cholecystectomy 1971 TVH 1986 BSO 1987 Total right hip arthroplasty 2008 Right subclavian artery stent placement 2018 Bilateral cataract extraction with IOL 2020 RUL resection @ [facility] 12/01/21 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 Procedures Surgical History Date Name Laterality Status Provider Name and Address Organization Details Recorded Time 10/19/19 26 Medicare Wellness CPT Code, subsequent active Mary Torres [employer] 09/02/2025 17:14:21 05/27/20 24 Medicare Wellness CPT Code, subsequent completed Robert Patel LPN [employer] 05/27/2024 08:50:14 05/08/20 23 Advanced Care Planning completed Snow Greene RN [employer] 05/08/2023 10:41:15 12/01/19 22 Lung Surgery completed Not Available [facility] 023 22:22:25 08/25/20 21 Cataract Surgery completed Not Available [facility] 10/2022 22:22:25 08/12/20 21 Cataract Surgery completed Not Available [facility] 10/2022 22:22:25 07/12/20 21 Date of Last Colonoscopy completed Not Available [facility] 12/13/2022 22:22:25 07/05/20 21 Most Recent Bone Density completed Not Available [facility] 12/13/2022 22:22:25 07/05/20 21 Most Recent Mammogram completed Not Available [facility] 12/13/2022 22:22:25 Hip surgery completed Not Available [facility] 12/13/2022 22:22:25 Gallbladder Surgery completed Not Available [facility] 12/13/2022 22:22:25 Cardiac Stent Placement completed Not Available [facility] 12/13/2022 22:22:25 Appendectomy completed Not Available [facility] 12/13/2022 22:22:25 HAIR STYLIST Surgery completed Not Available [facility] 12/13/2022 22:22:25 Imaging Results None recorded. Procedure Notes None recorded. Medical Equipment None Reported. Allergies Allergen ID Allergen Name Allergen Category Reaction Reaction Severity Criticality Documentation Date Start Date Code Code System Note Provider Name and Address Organization Details Recorded Time 95171 codeine medicatio n vomiting Not available Not available 12/13/2022 2670 RxNorm Not Available [facility] 22:23:41 89757 acetamino phen / codeine medicatio n Not available Not available Not available 09/07/2025 07764 9 RxNorm Not Available [employer] - prod 5 09:28:14 70764 acetamino phen / diphenhyd ramine medicatio n Not available Not available Not available 09/07/2025 67974 1 RxNorm Not Available [employer] - prod 5 09:28:14 Medications Name Sig Start Date Stop Date Status Note LastModified by Organization Details LastModified Time cyclobenza augusto 10 mg tablet TAKE 1 TABLET BY MOUTH DAILY AT BEDTIME NEEDED 07/22 /2025 completed Not Available Not Available Not Available furosemide 40 mg tablet TAKE 1 TABLET BY MOUTH EVERY DAY active Not Available Not Available No t Available albuterol sulfate 2.5 mg/3 mL (0.083 %) solution for nebulizati on VVN Q 6 TO 8 H PRF SOB OR WHZ 06/27 completed Not Available Not Available Not Available azithromyc in 250 mg tablet 06/12 completed Not Available Not Available Not Available cilostazol 50 mg tablet TAKE 1 TABLET BY MOUTH DAILY active Not Available Not Available No t Available ofloxacin 0.3 % eye drops 09/01 completed Not Available Not Available Not Available prednisone 20 mg tablet TAKE 3 TABLETS BY MOUTH ONCE DAILY FOR 5 DAYS active Not Available Not Available No t Available prednisone 5 mg tablet TAKE 1 TABLET BY MOUTH TWICE DAILY FOR 5 DAYS 07/30 completed Not Available Not Available Not Available clopidogre l 75 mg tablet TAKE 1 TABLET BY MOUTH EVERY DAY active Not Available Not Available No t Available allopurino l 100 mg tablet TAKE 1 TABLET BY MOUTH DAILY 09/30 completed Not Available Not Available Not Available tramadol 50 mg tablet Take 1 tablet every 4-6 hours by oral route as needed for 3 days. 01/02 completed Not Available Not Available Not Available amoxicilli n 500 mg tablet TAKE 1 TABLET BY MOUTH THREE TIMES DAILY FOR 5 DAYS 07/30 completed Not Available Not Available Not Available ketorolac 0.5 % eye drops 09/01 completed Not Available Not Available Not Available potassium chloride ER 20 mEq tablet,ext ended release(pa rt/cryst) TK 1 T PO D 06/23 completed Not Available Not Available Not Available prednisolo ne acetate 1 % eye drops,susp ension SHAKE LIQUID AND INSTILL 1 DROP TO SURGICAL EYE THREE TIMES DAILY STARTING AFTER SURGERY 09/01 completed Not Available Not Available Not Available amlodipine 10 mg tablet 09/24 completed Not Available Not Available Not Available ferrous sulfate 325 mg (65 mg iron) tablet TAKE 1 TABLET BY MOUTH DAILY active Not Available Not Available No t Available bisacodyl 5 mg tablet,del ayed release USE DIRECTED BY PRINTED PROTOCOL 09/01 completed Not Available Not Available Not Available hydralazin e 50 mg tablet TAKE 1/2 TABLET BY MOUTH 3 TIMES DAILY active Not Available Not Available No t Available cyanocobal nice (vit B-12) 1,[address] 1 tablet every day by sublingu al route. 05/27 completed Not Available Not Available Not Available lisinopril 5 mg tablet Take 1 tablet every day by oral route at bedtime. 09/22 completed Not Available Not Available Not Available furosemide 20 mg tablet TAKE ONE TABLET BY MOUTH DAILY. active Not Available Not Available No t Available diltiazem ER 60 mg capsule,ex tended release 12 hr 07/11 completed Not Available Not Available Not Available gabapentin 100 mg capsule TAKE 1 CAPSULE BY MOUTH DAILY 05/05 completed Not Available Not Available Not Available ergocalcif sharon (vitamin D2) 1,250 mcg (50,000 unit) capsule TAKE 1 CAPSULE BY MOUTH 1 TIME A MONTH active Not Available Not Available No t Available ibuprofen 600 mg tablet TAKE 1 TABLET BY MOUTH EVERY 6 HOURS WITH FOOD NEEDED 05/08 completed Not Available Not Available Not Available methylpred nisolone 4 mg tablets in a dose pack FOLLOW PACKAGE DIRECTIO NS 02/22 completed Not Available Not Available Not Available albuterol sulfate HFA 90 mcg/actuat ion aerosol inhaler Inhale 1 puff every 4 hours by inhalati on route as needed for 90 days. 2024 active Not Available Not Available Not Avai lable lisinopril 2.5 mg tablet Take 2 tablets every day by oral route. 06/23 completed Not Available Not Available Not Available rosuvastat in 40 mg tablet Take 1 tablet every day by oral route. 01/02 completed Not Available Not Available Not Available metoprolol tartrate 25 mg tablet TAKE 1 TABLET BY MOUTH TWICE A DAY active Not Available Not Available No t Available Leno Aspirin 81mg TK 1T PO QD 02/22 completed Not Available Not Available Not Available Advair HFA 45 mcg-21 mcg/actuat ion aerosol inhaler Inhale 2 puffs twice a day by inhalati on route. 07/10 completed Not Available Not Available Not Available Advair HFA 115 mcg-21 mcg/actuat ion aerosol inhaler INHALE 2 PUFFS BY MOUTH TWICE DAILY 05/27 completed Not Available Not Available Not Available Symbicort 80 mcg-4.5 mcg/actuat ion HFA aerosol inhaler INL 1 PUFF PO BID 06/23 completed Not Available Not Available Not Available peg 3350-elect rolytes 236 gram-22.74 gram-6.74 gram-5.86 gram solution USE DIRECTED 09/01 completed Not Available Not Available Not Available azelastine 205.5 mcg (0.15 %) nasal spray active Not Available Not Available Not Available D3 DOTS 50 mcg (2,000 unit) tablet Take by oral route. 06/23 completed Not Available Not Available Not Available metoprolol succ 25 mg-hydroch lorothiazi de 12.5 mg tablet,ext .rel 24 hr Take 1 tablet every day by oral route. 06/23 completed Not Available Not Available Not Available Breo Ellipta 100 mcg-25 mcg/dose powder for inhalation Inhale 1 puff every day by inhalati on route. 05/07 completed Gargle after use Not Available Not Available Not Available Spiriva Respimat 2.5 mcg/actuat ion solution for inhalation INHALE 2 PUFFS BY MOUTH ONCE DAILY active Not Available Not Available No t Available Nexletol 180 mg tablet Take by oral route for 90 days. active Not Available Not Available No t Available Breztri Aerosphere 160 mcg-9mcg-4 .8mcg/actu ation HFA aerosol inhaler Inhale 2 puffs twice a day by inhalati on route. 2024 active Not Available Not Available Not Avai lable allopurino l 200 mg tablet TAKE 1 TABLET BY MOUTH DAILY active Not Available Not Available No t Available Vitals Date Recorded Body height Body mass index (BMI) Body weight Body temperature Heart rate Systolic And Diastolic Provider Name and Address Organization Details Last Updated DateTime 5 160.02 cm 27.1 kg/m2 99772.6 3 g 97.7 [degF] 72 /min 122/60 mm[Hg] MARCIE Hdz [place] [facility] [employer] [facility] 5 11:24:46 Date Recorded Body height Body mass index (BMI) Body weight Body temperature Heart rate Oxygen saturation Pain severity - 0-10 verbal numeric rating [Score] - Reported Systolic And Diastolic Provider Name and Address Organization Details Last Updated DateTime 5 160.02 cm 28.2 kg/m2 61377.1 9 g 97 [degF] 76 /min 91 % 0 120/60 mm[Hg] Jade Peraza MA [employer] [facility] [employer] 5 09:25:07 Date Recorded Body height Body mass index (BMI) Body weight Body temperature Heart rate Systolic And Diastolic Provider Name and Address Organization Details Last Updated DateTime 4 160.02 cm 29.4 kg/m2 83866.3 3 g 97.4 [degF] 72 /min 114/56 mm[Hg] MARCIE Hdz [employer] [facility] [employer] 4 11:16:49 Date Recorded Pain severity - 0-10 verbal numeric rating [Score] - Reported Provider Name and Address Organization Details Last Updated DateTime 05/27/2024 0 Robert Patel LPN [employer] [facility] [employer] 05/27/2024 12:01:39 Date Recorded Oxygen saturation Heart rate Respiratory rate Systolic And Diastolic Provider Name and Address Organization Details Last Updated DateTime 06/10/2025 95 % 74 /min 15 /min 112/60 mm[Hg] Milka Mock MD [address], [address] , [employer] [facility] [employer] 5 10:15:08 Date Recorded Body height Body mass index (BMI) Body weight Body temperature Heart rate Provider Name and Address Organization Details Last Updated DateTime 06/10/2025 160.02 cm 28 kg/m2 45370.59 g 97.9 [degF] 74 /min Jigna Lewis MA [employer] [facility] [employer] 5 10:03:57 Date Recorded Body height Body mass index (BMI) Body weight Body temperature Heart rate Systolic And Diastolic Provider Name and Address Organization Details Last Updated DateTime 4 160.02 cm 27.6 kg/m2 54467.4 1 g 97.4 [degF] 72 /min 126/74 mm[Hg] MARCIE Hdz [employer] [facility] [employer] 4 11:09:53 Social History Question Answer Notes LastModified by Organization Details LastModified Time Tobacco Smoking Status Former Smoker quit 2005 MARCIE Hdz, [facility] 05/27/2024 11:13:21 Do You Have An Advance Directive? Yes [id number] Information not available 12/13/2022 Are You Blind Or Do You Have Difficulty Seeing? No [id number] Information not available 12/13/2022 Is Blood Transfusion Acceptable In An Emergency? Yes [email or web address] Information not available 05/27/2024 What Is Your Level Of Caffeine Consumption? Moderate [email or web address] [id number] Information not available 12/13/2022 What Is Your Code Status? DNR [email or web address] Information not available 05/27/2024 In The 14 Days Before Symptom Onset, Have You Had Close Contact With A Laboratory-conf irmed COVID-19 While That Case Was Ill? No [id number] Information not available 12/13/2022 In The 14 Days Before Symptom Onset, Have You Had Close Contact With A Person Who Is Under Investigation For COVID-19 While That Person Was Ill? No [email or web address].[id number] Information not available 12/13/2022 Are You Deaf Or Do You Have Serious Difficulty Hearing? No [id number] Information not available 12/13/2022 What Type Of Diet Are You Following? REGULAR [email or web address].030 [id number] Information not available 12/13/2022 What Is The Highest Grade Or Level Of School You Have Completed Or The Highest Degree You Have Received? BL00005-8 [id number].300 [id number] Information not available 12/13/2022 Do You Have An Electrostatic Air Filter? No Information not available 02/22/2023 How Many Days Of Moderate To Strenuous Exercise, Like A Brisk Walk, Did You Do In The Last 7 Days? 0 [email or web address] Information not available 05/27/2024 Have There Been Any Changes To Your Family Or Social Situation? No [id number] [id number] Information not available 12/13/2022 What Is The Fluoride Status Of Your Home? Unknown [id number] Information not available 12/13/2022 When Did You Quit Smoking? 16+yearssincelastc igarette Information not available 05/27/2024 Are There Any Guns Present In Your Home? No [email or web address].[id number] [id number] Information not available 12/13/2022 Do You Have A Humidifier? No Information not available 02/22/2023 Do You Use Insect Repellent Routinely? No [id number] Information not available 12/13/2022 Where Do You Live? SingleLevelHouse [email or web address].[id number] [id number] Information not available 12/13/2022 Advance Directive- Providers Has Reviewed Directive And Consents To Follow Them (insert Provider Name With Any Objectives In Notes Field) Yes Information not available 05/27/2024 Presence Of Domestic Violence No [email or web address] Information not available 05/27/2024 Guns Present In The Home? No [email or web address] Information not available 05/27/2024 Are You Able To Care For Yourself? Yes [email or web address] Information not available 05/27/2024 Are You Blind Or Do Yo Have Difficulty Seeing? No [email or web address] Information not available 05/27/2024 Are You Deaf Or Do You Have Serious Difficulty Hearing? No [email or web address] Information not available 05/27/2024 General Stress Level? Low [email or web address] Information not available 05/27/2024 Live Alone Of With Others? Alone Information not available 05/27/2024 Do You Have A Medical Power Of [employer]? Yes [email or web address] [id number] Information not available 12/13/2022 Do You Have Moisture Problems In Your Home? No Information not available 02/22/2023 What Was The Date Of Your Most Recent Tobacco Screening? 06/10/2025 Information not available 06/10/2025 How Many Children Do You Have? 4 3 [email or web address] Information not available 05/27/2024 What Is Your Current Pack Years? 10packyears [email or web address] Information not available 05/27/2024 Do You Have Any Pets? Yes Dog [email or web address] Information not available 05/27/2024 What Is Your Relationship Status? [id number].0301 [id number] Information not available 12/13/2022 Do You Use Your Seat Belt Or Car Seat Routinely? Yes [email or web address].[id number] [id number] Information not available 12/13/2022 Are You Sexually Active? No [email or web address] Information not available 05/27/2024 Do You Have Smoke And Carbon Monoxide Detectors In Your Home? Yes MIGRATION.0301 [id number] Information not available 12/13/2022 Are You Passively Exposed To Smoke? No MIGRATION.0301 [id number] Information not available 12/13/2022 Are There Any Smokers In Your House? No MIGRATION.0301 [id number] Information not available 12/13/2022 How Much Tobacco Do You Smoke? No Was 2ppd Information not available 12/30/2024 What Types Of Sporting Activities Do You Participate In? None [email or web address] Information not available 05/27/2024 Do You Use Sunscreen Routinely? No MIGRATION.0301 [id number] Information not available 12/13/2022 Has Tobacco Cessation Counseling Been Provided? No [email or web address] Information not available 05/27/2024 How Many Years Have You Smoked Tobacco? 40 Information not available 12/30/2024 Have You Recently Traveled Abroad? No MIGRATION.0301 [id number] Information not available 12/13/2022 Do You Have Difficulty Walking Or Climbing Stairs? Yes Information not available 05/27/2024 Do You Have Any Dietary Restrictions? No MIGRATION.0301 [id number] Information not available 12/13/2022 Sex: Female Functional Status Question Answer Note LastModified by [employer] ion Details LastModified Time Do you use any illicit or recreational drugs? No MIGRATION.23775 34021 Information not available 12/13/2022 Do you or have you ever used any other forms of tobacco or nicotine? No MIGRATION.32397 73198 Information not available 12/13/2022 What is your level of alcohol consumption? None MIGRATION.40074 32382 Information not available 12/13/2022 Are you currently employed? No Retired Information not available 05/27/2024 Do you have transportation difficulties? No MIGRATION.98412 01274 Information not available 12/13/2022 Are you able to walk independently without assistance or assistive devices? YESASSIST uses rollator Information not available 05/27/2024 Do you have difficulty doing errands alone? No MIGRATION.30396 13486 Information not available 12/13/2022 Are you able to care for yourself independently? Yes MIGRATION.60005 83606 Information not available 12/13/2022 Do you have difficulty dressing, bathing, grooming, or toileting? No MIGRATION.13111 32546 Information not available 12/13/2022 What is your exercise level? None [email or web address] Information not available 05/27/2024 Mental Status Question Answer Note LastModified by Organiz[employer] ion Details LastModified Time Do you feel stressed (tense, restless, nervous, or anxious, or unable to sleep at night)? [id number] MIGRATION.[id number] 26 Information not available 12/13/2022 Do you have difficulty concentrating, remembering or making decisions? No MIGRATION.[id number] 26 Information not available 12/13/2022 Family History Relationship Description Onset Age of this Age Resolved Age Notes LastModified by Organization Details LastModified Time Sister Chronic obstructive pulmonary disease [email or web address] Not available 05/15 10:57:05 Sister Malignant neoplasm of cervix uteri [email or web address] Not available 0 05/27/2024 10:57:05 Sister Malignant neoplasm of cervix uteri [email or web address] Not available 0 05/27/2024 10:57:05 Daughter Myocardial infarction [email or web address].002 [id number] Not available 12/13/2022 22:22:25 Mother Malignant neoplasm of cervix uteri [email or web address] Not available 0 05/27/2024 10:57:05 Medical History Condition Response NERVE DISEASE N BLINDNESS N RHEUMATIC FEVER N KIDNEY STONES N BLADDER PROBLEMS N MRSA N OTHER # 1 N POLIO N LUNG DISEASE/DISORDER Y HISTORY OF DRUG ABUSE N RADIATION / CHEMOTHERAPY N COPD Y Other # 2 N BLOOD DISEASES N EAR OR HEARING PROBLEMS N MUMPS N SHINGLES N BOWEL PROBLEMS N DEPRESSION (INCLUDING POST ) N STROKE/TIA N ULCERS N BENIGN PROSTATIC HYPERPLASIA N MEASLES N HYPOTENSION N MYOCARDIAL INFARCTION N OBESITY N GERD/NAUSEA N ANEURYSM N URINARY/BLADDER/KIDNEY PROBLEMS N CORONARY ARTERY DISEASE (CAD) N ADDICTION CONCERNS N ENDOMETRIOSIS N Impotence N USE OF BLOOD THINNERS N SKIN PROBLEMS N GASTROINTESTINAL DISORDER N PERIPHERAL VASCULAR DISEASE N MUSCLE,JOINT OR BONE PROBLEMS N GASTROINTESTINAL BLEEDING N BLOOD CLOTS N ASTHMA N CATARACTS N ERECTILE DYSFUNCTION N VARICOSITIES N GI PROBLEMS N Low Testosterone N INFERTILITY N AIDS/HIV N CHEMOTHERAPY / RADIATION N LIVER DISEASE N MALE HYPOGONADISM N HYPERTENSION Y Deficiency N TOURETTE'S N ANXIETY DISORDER N BLOOD TRANSFUSION N ANEMIA/BLOOD DISORDER Y CHRONIC EAR INFECTIONS N BRONCHITIS N TUBERCULOSIS N GLAUCOMA N FOOT PROBLEM N DIVERTICULITIS N CHICKENPOX N SLEEP APNEA N INFECTIOUS DISEASE N HEART ARRHYTHMIA N PROSTATE N INSOMNIA N HIGH CHOLESTEROL / HYPERLIPIDEMIA Y HYPERTHYROIDISM N EYE PROBLEMS N EDEMA N CHRONIC PAIN SYNDROME N HYPOTHYROIDISM N CAROTID BLOCKAGE N CONSTIPATION N BACK / NECK PROBLEMS N HAVE YOU BEEN HOSPITALIZED OR SEEN IN [facility] IN THE PAST YEAR ? N ATHEROSCLEROSIS N BREAST PROBLEMS N DIALYSIS N ECZEMA N OSTEOPOROSIS N ARTHRITIS N NO SIGNIFICANT PAST MEDICAL HISTORY N APPENDICITIS N DIABETES, TYPE N BAD TEETH N ENT N HEARTBURN / REFLUX N AUTISM SPECTRUM DISORDER (ASD) N HEPATITIS / LIVER DISEASE N GOUT N SLEEP DISORDER N ALZHEIMER'S DISEASE N Brain Problems N HERPES N DEMENTIA N HEADACHES/MIGRAINES N SEIZURES/EPILEPSY N VASCULAR DISEASE N PACEMAKER N Blood Disorder N DIZZINESS N HEART DISEASE/HEART PROBLEMS N KIDNEY DISEASE Y MULTIPLE SCLEROSIS N CARDIAC ARRHYTHMIA N CANCER: SPECIFY Y ATRIAL FIBRILLATION N Gall Stones N PULMONARY EMBOLISM N AUTOIMMUNE DISEASE N Gynecological History Statement/Question Response How many live births 4 Abnormal Pap Y Date of Last Mammogram 07/05/2021 Date of Last Mammogram Date of Last Colonoscopy 07/12/2021 Most Recent Bone Density 07/05/2021 Date of LMP Date of Last Pap Current Control Method Hysterectom y Most Recent Mammogram 07/05/2021 Obstetrics History GPAL:G 4 P 4 0 0 1 Type Value Multiple Births 0 Full Term 4 Induced 0 Spontaneous 0 Premature 0 Living 1 Ectopics 0 Total 4 Immunizations Vaccine Type Date Status Note Provider Nam e and Address Organization Details Recorded Time pneumococcal polysaccharide PPV23 2 completed Not Available [facility] 07/19/2023 22:31:04 Pneumococcal conjugate PCV 13 1 completed [facility]CI[facility] [place] 07/29/2024 15:50:29 Past Encounters Encounter ID Performer Location Encounter Start Date Encounter Closed Date Diagnosis/Indication Diagnosis SNOMED-CT Code Diagnosis ICD10 Code Diagnosis IMO Codes Diagnosis Note [id number] MD BENJI Yarbrough_G Internal Med [facility] [address] [place] [address] 06/23/2021 00:00:00 07/14/2021 10:02:26 [id number] MD BENJI Olguin_GMMarsha Pulmonolo gy [address] [address] 06/29/2021 00:00:00 06/29/2021 14:50:21 [id number] [facility] _ATHENA_M IGRATION_ DEFAULT_1 _1 , 08/18/2021 00:00:00 08/18/2021 16:02:45 [id number] Milka Mock MD Jocelin_GMG [address] [address] 09/01/2021 00:00:00 09/01/2021 11:54:25 [id number] Jaquan townsend MD S_GMG Internal Med [address] [address] 09/22/2021 00:00:00 09/22/2021 14:08:49 [id number] MD BENJI Olguin_Marsha [address] [address] 09/26/2021 00:00:00 09/26/2021 12:25:35 [id number] Jaquan townsend MD Jocelin_[facility] Internal Med [address] [address] 12/29/2021 00:00:00 12/29/2021 18:34:22 [id number] MD BENJI Olguin_Marsha [address] [address] 01/05/2022 00:00:00 01/05/2022 11:38:52 [id number] MD BENJI Olguin_GMMarsha [address] [address] 04/06/2022 00:00:00 04/06/2022 12:26:36 [id number] MD BENJI Yarbrough_GMG Internal Med [address] [address] 07/11/2022 00:00:00 07/12/2022 10:54:27 [id number] MD BENJI Yarbrough_GMG Internal Med [address] [place] [address] 01/02/2023 10:26:25 01/02/2023 11:14:18 Screening - NAD 750330779 Z13.9 C-scope: 07/12/2021 : Dr Santamaria next in 10 years EGD: 07/12/2021 : Dr Santamaria Mammogram: 07/05/2021 : Neg, ordered 07/11/2022 DEXA: 07/05/2021 : Neg PAP: Dr Pennington 08/18/2021 Get yearly flu shot declines 09/22/2021 UTD PCV #13 06/23/2021 and then #23Get Ruperto corneliusld get COVID 19 vaccine, she declines 09/22/2021 , states that this is 'my choice' advised to follow all CDC guidelines RTC in 4 monthsDo labsER if worseShe and her CG did verbalize her understand ing of the above Coronary arteriosclerosis 54263973 I25.10 S/p stentsSees Dr Contreras, last OV 06/28/2022 On ASAOn plavixOn cilostazol 50mg bidOn lasix 40mg 2 tabs dailyOn hydralazin e 50mg 1/2 tab tidOff lisinopril 5mg dailyOn metoprolol 25mg bid Not on diltiazem ER 30mg dailyDoes wellGet labs Hyperlipidemia 62910285 E78.5 On nexletol 180mg daily Does wellGet labs Chronic ob structive pulmonary disease 61330781 J44.[address] chestIs on HHN Is on albuterol PRN, renewed 06/23/2021 Needs to see pulmonary CT chest 06/23/2021 , 09/20/[address] 07/07/2021 Dr Demario Mckay 07/21/2021 Bilateral cataracts 9572 2004 H26.9 L>R, s/p surgeryRef er to eye Anemia 398569799 D64.9 Dr Mckay 06/09/2022 , next in 3 months Chronic ki dney disease 410461152 N18.[address] Diallo SARAVIA Low back pain 652552472 M54.[address] Winston townsend rheumatolo gist by Dr Mock, was told to take tylenol 1000mg tid, very reluctant to do so, does not want to see the rheumatolo gist anymore, will refer to pain management OV 01/02/2023 :Does not want to do any more pain management , states she is doing OK at this time Malignant neoplasm of lung 056856545 C34.90 S/p R UL lobectomy 12/01/2021 Dr Mckay oncologist 06/09/2022 , will now see Dr Colon as she does not have a ride as she is not living with her daughter or son anymore, her son told her to just leave her house and told her she is just going to ''! [id number] Milka Mock MD [facility] Pulmonolo gy [address] [address] 02/22/2023 11:03:45 02/23/2023 08:33:43 Atelectasis 16686667 J98.11 Anti-nucle ar factor detected 240383416 R76.8 Moderate c hronic obstructive pulmonary disease 458857216 J44.9 Adenocarci noma of right lung 4650078886 1341853 C34.91 [id number] Milka Mock MD [facility] Pulmonolo gy [address] [address] 05/07/2023 11:45:48 05/08/2023 08:33:46 Atelectasis 68750807 J98.11 Anti-nucle ar factor detected 920505599 R76.8 Moderate c hronic obstructive pulmonary disease 684589324 J44.9 Adenocarci noma of right lung 1290678198 9550445 C34.91 [id number] Jaquan townsend MD S[facility] Internal Med [address] [address] 05/08/2023 09:58:01 05/08/2023 10:55:30 Screening - NAD 061955793 Z13.9 C-scope: 07/12/2021 : Dr Santamaria next in 10 years EGD: 07/12/2021 : Dr Santamaria Mammogram: 07/05/2021 : Neg, ordered 07/11/2022 DEXA: 07/05/2021 : Neg PAP: Dr Pennington 08/18/2021 Get yearly flu shot declines 09/22/2021 UTD PCV #13 06/23/2021 and then #23Get Ruperto bonds get COVID 19 vaccine, she declines 09/22/2021 , states that this is 'my choice' advised to follow all CDC guidelines RTC in 4 monthsDo labsER if worseShe and her CG did verbalize her understand ing of the above Coronary arteriosclerosis 74298494 I25.10 S/p stentsSees Dr Contreras, last OV 06/28/2022 On ASAOn plavixOn cilostazol 50mg bidOn lasix 40mg 2 tabs dailyOn hydralazin e 50mg 1/2 tab tidOff lisinopril 5mg dailyOn metoprolol 25mg bid Not on diltiazem ER 30mg dailyDoes ольгаArvin Mayo is seeing Dr Contreras for her carotid bruit and states that he wants to get an US carotid or another test for this, no complaints today 05/08/2023 Hyperlipidemia 08931907 E78.5 On nexletol 180mg daily Does wellGet labs Chronic ob structive pulmonary disease 21451248 J44.[address] chestIs on HHN Is on albuterol PRN, renewed 06/23/2021 Needs to see pulmonary CT chest 06/23/2021 , 09/20/[address] 07/07/2021 CT chest 03/05/2023 : CAD Dr Demario Mckay 07/21/2021 Bilateral cataracts 9572 2003 H26.9 L>R, s/p surgeryRef er to eye Anemia 947222277 D64.9 Dr Mckay 06/09/2022 , next in [address] Colon but now wants to keep seeing Dr Mckay, referral provided 05/08/2023 Chronic ki dney disease 896244014 N18.[address] Patel IJ Low back pain 130970988 M54.[address] Montero a rheumatolo gist by Dr Mock, was told to take tylenol 1000mg tid, very reluctant to do so, does not want to see the rheumatolo gist anymore, will refer to pain management OV 01/02/2023 : Does not want to do any more pain management , states she is doing OK at this time Malignant neoplasm of lung 673113509 C34.90 S/p R UL lobectomy 12/01/2021 Dr Mckay oncologist 06/09/2022 , will now see Dr Colon as she does not have a ride as she is not living with her daughter or son anymore, her son told her to just leave her house and told her she is just going to ''! S/p chest 05/07/2023 Dr Mock, last OV 05/07/2023 , next in one year Screening mammography 24 779360 Z12.31 Screening for osteoporosis 417817788 Z13.820 Adult heal th examination 583148059 Z00.00 Depression screening 171 521027 Z13.31 [id number] Milka Mock MD [facility] [address] [address] 06/12/2023 10:14:01 06/13/2023 08:38:38 Atelectasis 12008819 J98.11 Anti-nucle ar factor detected 795564230 R76.8 Moderate c hronic obstructive pulmonary disease 219924086 J44.9 Adenocarci noma of right lung 5661976754 0369520 C34.91 [id number] Milka Mock MD [facility] [address]mon[address] [address] 07/05/2023 10:37:09 07/06/2023 08:34:40 Atelectasis 23711201 J98.11 Anti-nucle ar factor detected 627585273 R76.8 Moderate c hronic obstructive pulmonary disease 443734786 J44.9 Adenocarci noma of right lung 1821526451 0085347 C34.91 [id number] Jaquan townsend MD [facility] Internal Med [address] [address] 07/10/2023 11:39:01 07/10/2023 12:45:51 Screening - NAD 302514184 Z13.9 C-scope: 07/12/2021 : Dr Santamaria next in 10 years EGD: 07/12/2021 : Dr Santamaria Mammogram: 07/05/2021 : Neg, ordered 07/11/2022 DEXA: 07/05/2021 : Neg PAP: Dr Pennington 08/18/2021 Get yearly flu shot declines 09/22/2021 UTD PCV #13 06/23/2021 and then #23Get Ruperto ould get COVID 19 vaccine, she declines 09/22/2021 , states that this is 'my choice' advised to follow all CDC guidelines RTC in 2 monthsDo Francois schmidtShtoyin and her CG did verbalize her understand ing of the above Coronary arteriosclerosis 16239164 I25.10 S/p stentsSees Dr Contreras, last OV 06/28/2022 On ASAOn plavixOn cilostazol 50mg bidOn lasix 40mg 2 tabs dailyOn hydralazin e 50mg 1/2 tab tidOff lisinopril 5mg dailyOn metoprolol 25mg bid Not on diltiazem ER 30mg dailyDoes Adrián Mayo is seeing Dr Contreras for her carotid bruit and states that he wants to get an US carotid or another test for this, no complaints today 05/08/2023 Now has to see cardiology again s/p ER at [facility] for leg swelling and was told to take 2 lasix, did speak with Dr Contreras 07/10/2023 , and he will see her tomorrow at 1 pm Hyperlipidemia 47980771 E78.5 On nexletol 180mg daily Does wellGet labs Chronic ob structive pulmonary disease 57363199 J44.[address] chestIs on HHN Is on albuterol PRN, renewed 06/23/2021 Needs to see pulmonary CT chest 06/23/2021 , 09/20/[address] 07/07/2021 CT chest 03/05/2023 : CAD Dr Mock 07/05/2023 , next on 07/03/2024 , he will see her again today 07/10/2023 as she did have a COPD exacerbati on and needed to be admitted but signed out AMADr Nely 07/21/2021 Bilateral cataracts 9572 2004 H26.9 L>R, s/p surgery Refer to eye Anemia 491426204 D64.9 Dr Mckay 06/09/2022 , next in [address] Colon but now wants to keep seeing Dr Mckay, referral provided 05/08/2023 Chronic ki dney disease 373646625 N18.[address] Diallo SARAVIA Low back pain 017612761 M54.[address] Montero a rheumatolo gist by Dr Mock, was told to take tylenol 1000mg tid, very reluctant to do so, does not want to see the rheumatolo gist anymore, will refer to pain management OV 01/02/2023 : Does not want to do any more pain management , states she is doing OK at this time Malignant neoplasm of lung 036171597 C34.90 S/p R UL lobectomy 12/01/2021 Dr Mckay oncologist 06/09/2022 , will now see Dr Colon as she does not have a ride as she is not living with her daughter or son anymore, her son told her to just leave her house and told her she is just going to ''! S/p chest 05/07/2023 Dr Mock, last OV 05/07/2023 , next in one year Screening mammography 24 728039 Z12.31 Screening for osteoporosis 797030130 Z13.820 Depression screening 171 821602 Z13.31 [id number] Milka Mock MD [address] [address] 07/10/2023 13:45:09 07/11/2023 08:45:07 Atelectasis 14135080 J98.11 Anti-nucle ar factor detected 965990027 R76.8 Moderate c hronic obstructive pulmonary disease 315272915 J44.9 Adenocarci noma of right lung 4478507097 6881742 C34.91 [id number] Milka Mock MD [facility] [address] [address] 05/07/2024 13:02:55 05/08/2024 09:19:51 Atelectasis 86790547 J98.11 Anti-nucle ar factor detected 717493944 R76.8 Moderate c hronic obstructive pulmonary disease 030004528 J44.9 Adenocarci noma of right lung 6708928218 6796432 C34.91 [id number] Jaquan townsend MD [facility] Internal Med [facility] [address] [facility], [address] [place] [address] 05/27/2024 10:55:33 05/27/2024 11:52:47 Screening - NAD 219519498 Z13.9 C-scope: 07/12/2021 : Dr Santamaria next in 10 years EGD: 07/12/2021 : Dr Santamaria Mammogram: 07/05/2021 : Neg, ordered 07/11/2022 Mammogram: 04/30/2024 : Neg DEXA: 07/05/2021 : Neg PAP: Dr Pennington 08/18/2021 Get yearly flu shot declines 09/22/2021 UTD PCV #13 06/23/2021 UTD on #23 07/11/2022 Get shingrix vaccineSho uld get COVID 19 vaccine, she declines 09/22/2021 , states that this is 'my choice' advised to follow all CDC guidelines Can do RSV vaccine RTC in 3 monthsDo dejuan torrey [facility] and her CG did verbalize her understand ing of the above Coronary arteriosclerosis 85339046 I25.10 S/p stentsSees Dr Contreras, last OV 06/28/2022 ECHO 05/22/2024 : [facility] EF 55% On ASAOn plavixOn cilostazol 50mg bidOn lasix 40mg 1 tab bidOn hydralazin e 50mg 1/2 tab tidOff lisinopril 5mg dailyOn metoprolol 25mg bid Not on diltiazem ER 30mg dailyDoes wellGet labsShe is seeing Dr Contreras for her carotid bruit and states that he wants to get an US carotid or another test for this, no complaints today 05/08/2023 Dr Contreras Hyperlipidemia 12900669 E78.5 On nexletol 180mg daily, renewed 05/27/2024 Does wellGet labs Chronic ob structive pulmonary disease 05833121 J44.[address] chestIs on HHN Is on albuterol PRN, renewed 06/23/2021 Needs to see pulmonary CT chest 06/23/2021 , 09/20/[address] 07/07/2021 CT chest 03/05/2023 : CAD Dr Mock 07/05/2023 , next on 07/03/2024 , he will see her again today 07/10/2023 as she did have a COPD exacerbati on and needed to be admitted but signed out AMADr Nely 07/21/2021 Dr Mock 05/07/2024 , next apt 05/07/2025 Bilateral cataracts 9572 2003 H26.9 L>R, s/p surgery Refer to eye Anemia 576934355 D64.9 Dr Mckay 06/09/2022 , next in [address] Colon but now wants to keep seeing Dr Mckay, referral provided 05/08/2023 Dr Mckay 05/23/2024 , next apt in 6 months Chronic ki dney disease 512506266 N18.[address] Diallo SARAVIA Low back pain 779391667 M54.[address] Montero a rheumatolo gist by Dr Mock, was told to take tylenol 1000mg tid, very reluctant to do so, does not want to see the rheumatolo gist anymore, will refer to pain management OV 01/02/2023 : Does not want to do any more pain management , states she is doing OK at this time On gabapentin 100mg daily given by Dr Diallo SARAVIA Malignant neoplasm of lung 620256144 C34.90 S/p R UL lobectomy 12/01/2021 Dr Mckay oncologist 06/09/2022 , will now see Dr Colon as she does not have a ride as she is not living with her daughter or son anymore, her son told her to just leave her house and told her she is just going to ''! S/p chest 05/07/2023 Dr Mock, last OV 05/07/2023 , next in one yearPET CT 05/12/2024 Dr Mckay 05/23/2024 , next in 6 months Screening for osteoporosis 767800763 Z13.820 Adult [facility] th examination 193792683 Z00.00 Screening for disorder 865666739 Z13.9 [id number] Jaquan townsend MD [facility] Internal Med [facility] [address] [facility], [address] [place] [address] 09/30/2024 10:47:15 09/30/2024 11:54:39 Screening - NAD 952966484 Z13.9 C-scope: 07/12/2021 : Dr Santamaria next in 10 years EGD: 07/12/2021 : Dr Santamaria Mammogram: 07/05/2021 : Neg, ordered 07/11/2022 Mammogram: 04/30/2024 : Neg DEXA: 07/05/2021 : Neg PAP: Dr Pennington 08/18/2021 Get yearly flu shot declines 09/22/2021 UTD PCV #13 06/23/2021 UTD on #23 07/11/2022 Get shingrix vaccineSho uld get COVID 19 vaccine, she declines 09/22/2021 , states that this is 'my choice' advised to follow all CDC guidelines Can do RSV vaccine RTC in 3 monthsDo dejuanER torrey [facility] did verbalize her understand ing of the above Coronary arteriosclerosis 15104509 I25.10 S/p stentsSees Dr Contreras, last OV 06/28/2022 ECHO 05/22/2024 : [facility] EF 55% On ASAOn plavixOn cilostazol 50mg bidOn lasix 40mg 1 tab bidOn hydralazin e 50mg 1/2 tab tidOff lisinopril 5mg dailyOn metoprolol 25mg bid Not on diltiazem ER 30mg dailyDoes [facility]reras for her carotid bruit and states that he wants to get an US carotid or another test for this, no complaints today 05/08/2023 Dr Contreras Hyperlipidemia 89971094 E78.5 On nexletol 180mg daily Does wellGet labs Chronic ob structive pulmonary disease 88241265 J44.[address] chestIs on HHN Is on albuterol PRN, renewed 06/23/2021 Needs to see pulmonary CT chest 06/23/2021 , 09/20/[address] 07/07/2021 CT chest 03/05/2023 : CAD Dr Mock 07/05/2023 , next on 07/03/2024 , he will see her again today 07/10/2023 as she did have a COPD exacerbati on and needed to be admitted but signed out AMADr Nely 07/21/2021 Dr Mock 05/07/2024 , next apt 05/07/2025 Bilateral cataracts 9572 2004 H26.9 L>R, s/p surgery Refer to eye Anemia 640804484 D64.9 Dr Mckay 06/09/2022 , next in [address] Colon but now wants to keep seeing Dr Mckay, referral provided 05/08/2023 Dr Mckay 05/23/2024 , next apt in 6 months Chronic ki dney disease 110588827 N18.[address] Diallo SARAVIA Low back pain 845297544 M54.[address] Montero a rheumatolo gist by Dr Mock, was told to take tylenol 1000mg tid, very reluctant to do so, does not want to see the rheumatolo gist anymore, will refer to pain management OV 01/02/2023 : Does not want to do any more pain management , states she is doing OK at this time On gabapentin 100mg daily given by Dr Diallo SARAVIA Malignant neoplasm of lung 100208117 C34.90 S/p R UL lobectomy 12/01/2021 Dr Mckay oncologist 06/09/2022 , will now see Dr Colon as she does not have a ride as she is not living with her daughter or son anymore, her son told her to just leave her house and told her she is just going to ''! S/p chest 05/07/2023 Dr Mock, last OV 05/07/2023 , next in one yearPET CT 05/12/2024 Dr Mckay 05/23/2024 , next in 6 months Screening for osteoporosis 550034311 Z13.820 Prediabetes 724464180 R7 3.03 Not on any medsGet labsSee eye [id number] Jaquan townsend MD [facility] Internal [facility] [address] [facility] [facility] [address] [place] [address] 12/30/2024 10:51:07 12/30/2024 11:54:56 Screening - NAD 440186212 Z13.9 C-scope: 07/12/2021 : Dr Santamaria next in 10 years EGD: 07/12/2021 : Dr Santamaria Mammogram: 07/05/2021 : Neg, ordered 07/11/2022 Mammogram: 04/30/2024 : Neg DEXA: 07/05/2021 : Neg PAP: Dr Pennington 08/18/2021 Get yearly flu shot declines 09/22/2021 UTD PCV #13 06/23/2021 UTD on #23 07/11/2022 Get shingrix vaccineSho uld get COVID 19 vaccine, she declines 09/22/2021 , states that this is 'my choice' advised to follow all CDC guidelines Can do RSV vaccine RTC in 3 monthsDo labsER if brayanShtoyin did verbalize her understand ing of the above Coronary arteriosclerosis 76339112 I25.10 S/p stentsSees Dr Contreras, last OV 06/28/2022 ECHO 05/22/2024 : [facility] EF 55% On ASAOn plavixOn cilostazol 50mg bidOn lasix 40mg 1 tab bidOn hydralazin e 50mg 1/2 tab tidOff lisinopril 5mg dailyOn metoprolol 25mg bid Not on diltiazem ER 30mg dailyDoes [facility] is [facility] Dr Contreras for her carotid bruit and states that he wants to get an US carotid or another test for this, no complaints today 05/08/2023 Dr Contreras referred 12/30/2024 Hyperlipidemia 10473881 E78.5 On nexletol 180mg daily Does Adrián labs Chronic ob structive pulmonary disease 09734024 J44.[address] chestIs on HHN Is on albuterol PRN, renewed 06/23/2021 Needs to see pulmonary CT chest 06/23/2021 , 09/20/[address] 07/07/2021 CT chest 03/05/2023 : CAD Dr Mock 07/05/2023 , next on 07/03/2024 , he will see her again today 07/10/2023 as she did have a COPD exacerbati on and needed to be admitted but signed out AMADr Nely 07/21/2021 Dr Mock 05/07/2024 , next apt 05/07/2025 CT chest 11/24/2024 Bilateral cataracts 9572 2004 H26.9 L>R, s/p surgery Refer to eye Anemia 164296527 D64.9 Dr Mckay 06/09/2022 , next in [address] Colon but now wants to keep seeing Dr Mckay, referral provided 05/08/2023 Dr Mckay 05/23/2024 , next apt in 6 months Chronic ki dney disease 701010983 N18.[address] Diallo SARAVIA Low back pain 287804082 M54.[address] Montero a rheumatolo gist by Dr Mock, was told to take tylenol 1000mg tid, very reluctant to do so, does not want to see the rheumatolo gist anymore, will refer to pain management OV 01/02/2023 : Does not want to do any more pain management , states she is doing OK at this time On gabapentin 100mg daily given by Dr Diallo SARAVIA Malignant neoplasm of lung [id number] C34.90 S/p R UL lobectomy 12/01/2021 Dr Mckay oncologist 06/09/2022 , will now see Dr Colon as she does not have a ride as she is not living with her daughter or son anymore, her son told her to just leave her house and told her she is just going to ''! S/p chest 05/07/2023 Dr Mock, last OV 05/07/2023 , next in one yearPET CT 05/12/2024 Dr Mckay 05/23/2024 , next in [address] chest 11/24/2024 Screening for osteoporosis 048438578 Z13.820 Prediabetes 830614576 R7 3.03 Not on any medsGet labsSee eye [id number] Jaquan townsend MD [facility] Internal Med [address] [facility] [address], [address] [place] [address] 05/05/2025 09:18:10 05/05/2025 10:30:37 Screening - NAD [id number] Z13.9 C-scope: 07/12/2021 : Dr Santamaria next in 10 years EGD: 07/12/2021 : Dr Santamaria Mammogram: 07/05/2021 : Neg, ordered 07/11/2022 Mammogram: 04/30/2024 : NegDoes not want any more mammograms and advised to do SBE DEXA: 07/05/2021 : Neg PAP: Dr Pennington 08/18/2021 Get yearly flu shot declines 09/22/2021 UTD PCV #13 06/23/2021 UTD on #23 07/11/2022 Get shingrix vaccineSho ulbee get COVID 19 vaccine, she declines 09/22/2021 , states that this is 'my choice' advised to follow all CDC guidelines Can do RSV vaccine RTC in 3 monthsDo labsER if [facility] did [facility]ize her understand ing of the above Coronary arteriosclerosis [id number] I25.10 S/p stentsSees Dr Contreras, last OV 06/28/2022 ECHO 05/22/2024 : [facility] EF 55% On ASAOn plavixOn cilostazol 50mg bidOn lasix 40mg 1 tab bidOn hydralazin e 50mg 1/2 tab tidOff lisinopril 5mg dailyOn metoprolol 25mg bid Not on diltiazem ER 30mg dailyDoes Adrián [facility] is seeing Dr Contreras for her carotid bruit and states that he wants to get an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
--- OUTSIDE RECORDS SUMMARY | 2025-09-08 13:13 | XMS_ITS | Continuity of Care Document ---
Author Organization [place] - [facility], [facility] [place] [facility] Pulmonology [place] Address [facility] [address] Care Team Providers Care Yoghurt Maker Name Role Phone PITER MENDOZA Primary Care Provider PITER MENDOZA Referring Provider ALBERT PATEL Account Manager Relief DELFINA SAUNDESR Area Attendant MILKA MOCK Poultry Packer GREG ARZOLA Hematology/Oncology Assessment Encounter Date Assessment Date Assessment LastModified by Organization Details LastModified Time 06/10/2025 06/10/2025 Assessment: Mod ACO RUL adenocarcinoma s/p resection @ [facility] 12/01/21 (+) VERENA 1:160 speckled, (+) anti-SSA/SSB, [...] mm pulm nodules, bibasilar atelectasis Chest CT 12/07/21 RUL 10 mm and 9 mm pulm [...] Details Appointments Medicare Wellness 15 2025 09:30A M Piter layton MD Not available Not available Not available Follow Up 2025 08:30A M Milka Mock MD Not available Not available Not available Lab None recorded. Referral None recorded. Procedures None recorded. Surgeries None recorded. Imaging CT, chest, w/o contrast 2024 026 Not available 06/10/2025 10:24:11 Medication Orders albuterol sulfate HFA 90 mcg/actua tion aerosol inhaler 2024 025 [id number], [address], [place], [place], [id number], 06/10/2025 10:24:18 Breztri Aerospher e 160 mcg-9mcg- 4.8mcg/ac tuation HFA aerosol inhaler 2024 025 [facility] #[id number], [address], [place], [address], 06/10/2025 10:24:13 Patient TargetsNo targets recorded. Patient Instructions Encounter Date Encounter Id Patient Instructions Last Modified By Organization Details Last Modified Time 06/10/2025 [id number] complete PFT w/ post bronchodilator spirometry* Not available 06/10/2025 10:36:17 Reason for Referral None Reported. Results Created Date Observation Date Name Description Value Unit Range Abnormal Flag Note LastModifiedBy Organization Detail LastModifiedTime 06/03/2006/03/2025 DEXA, axial skele ton [facility] [address] [place] [address] [phone] RADIOL OGY REPORT _ Francisca t Name: SAMRA Uribe Date Of : [birth year] Date Of Study: 025 Ref. Physic ena: ALBERTO Thorpe MD _ EXAMIN ATION: XR DEXA-H IPS [...] the same age and sex. 2. 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 [facility] (One Call Scheduling) [address] [place], [address], 06/04/2025 19:22:01 06/08/20 25 06/03/2025 scree tejinder breas t socorro, bilat [facility] [address] [place] [address] Patien t Name: MAGDALENE FERNÁNDEZ Access ion #: [id number] Sex: F : 1944 2 1 Dictat ed By: Soila Caba Attend ing Physic ena: YI BELL Orderi ng Physic ena: YI BELL Exam Date: 2024 09:25 AM Exam Name: MG ANTHONY BREAST SOCORRO BILAT Admitt ing Diagno sis(es ): PROCED URE: SCREEN ING MAMMOG PETER WITH TOMOSY NTHESI S REASON FOR EXAM: screen ing mammog peter COMPAR LEXII: MG SCRN BREAST SOCORRO BILAT [...] of breast cancer screen ing with mammog robert. FINDIN GS: BREAST COMPOS ITION: A - [...] RECOMM ENDATI ON: Recomm end annual mammog peter. ASSESS MENT: Page 1 [facility] [address] [place] [address] Patien t Name: MAGDALENE FERNÁNDEZ Access ion #: [id number] Sex: F : 1944 2 1 Dictat ed By: Soila Caba Attend ing Physic ena: ALBERTO ROSS Physic ena: YI BELL Exam Date: 2024 09:25 AM Exam Name: MG SCRN BREAST SOCORRO BILAT Admitt ing Diagno sis(es ): BIRADS : 1 - Negati ve Electr onical ly Signed by: Soila Caba at 2024 10:52: 03 AM Page 2 INTERFACE [facility] (Imaging) [address] [place], [address], 06/08/2025 11:54:13 08/31/2008/31/2025 imagi ng/terell bañuelos tic resul t No observ ation record ed. [facility] [address] [facility] [address], [place], [address], 08/31/2025 15:32:11 Result Notes None recorded. Problems Name Problem SNOMED Code Status Onset Date Resolution Date Notes Provider Name and Address Organization Details Recorded Time Hyperlipide nataly 44480605 Active 2021 Milka Mock MD [address], [place], [address], [employer] 19:02:12 Coronary arterioscle rosis 80601399 Active 2022 Milka Mock MD [address], [address], [place], [address], [employer] 19:02:14 Bilateral cataracts 85323898 Active 2022 Milka Mock MD [address], [address], [place], [address], [employer] 19:02:24 Chronic kidney disease 296513329 Active 2022 Milka Mock MD [address], [place], [address], [employer] 19:02:17 Atelectasis 05165722 Active 2022 Milka Mock MD [address], [address], [place], [address], [employer] 19:02:25 Anti-nuclea r factor detected 422287934 Active 2022 Milka Mock MD [address], [address], [place], [address], [employer] 19:02:28 Adenocarcin srinivasa of right lung 5526588173668 9100 Active 2022 Milka Mock MD [address], [place], [address], [employer] 19:02:31 Moderate chronic obstructive pulmonary disease 692014730 Active 2023 Milka Mock MD [address], [place], [address], [employer] 19:02:00 Anemia 433307138 Active 2023 Milka Mock MD [address], [place], [address], [employer] [facility] 5 19:03:09 Prediabetes 531371261 Active 2023 Milka Mock MD [address], [place], [address], [employer] [facility] 5 19:01:58 Notes:[facility] Chest CT 05/07/[address] [...] hip OA Gout PVD Procedure History: Cholecystectomy 1972 TVH 1987 BSO 1987 Total right hip arthroplasty 2008 Right subclavian artery stent placement 2018 Bilateral cataract extraction with IOL 2020 RUL resection @ [facility] 12/01/21 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 Procedures Surgical History Date Name Laterality Status Provider Name and Address Organization Details Recorded Time 10/19/19 26 Medicare Wellness CPT Code, subsequent active Marykristen Macdonald [facility] [employer] [facility] 09/02/2025 17:14:21 05/27/20 24 Medicare Wellness CPT Code, subsequent completed Robert Patel LPN [facility] [employer] [facility] 05/27/2024 08:50:14 05/08/20 23 Advanced Care Planning completed Snow Greene RN [facility] [employer] [facility] 05/08/2023 10:41:15 12/01/19 22 Lung Surgery completed Not Available [facility] 023 22:22:25 08/25/20 21 Cataract Surgery completed Not Available [facility] 10/2022 22:22:25 08/12/20 21 Cataract Surgery completed Not Available [facility] 10/2022 22:22:25 07/12/20 21 Date of Last Colonoscopy completed Not Available [facility] 12/13/2022 22:22:25 07/05/20 21 Most Recent Bone Density completed Not Available [facility] 12/13/2022 22:22:25 07/05/20 21 Most Recent Mammogram completed Not Available [facility] 12/13/2022 22:22:25 Hip surgery completed Not Available [facility] 12/13/2022 22:22:25 Gallbladder Surgery completed Not Available [facility] 12/13/2022 22:22:25 Cardiac Stent Placement completed Not Available [facility] 12/13/2022 22:22:25 Appendectomy completed Not Available [facility] 12/13/2022 22:22:25 FUNERAL PRE ARRANGEMENT SPECIALIST Surgery completed Not Available [facility] 12/13/2022 22:22:25 Imaging Results None recorded. Procedure Notes None recorded. Medical Equipment None Reported. Allergies Allergen ID Allergen Name Allergen Category Reaction Reaction Severity Criticality Documentation Date Start Date Code Code System Note Provider Name and Address Organization Details Recorded Time 04753 codeine medicatio n vomiting Not available Not available 12/13/2022 2670 RxNorm Not Available [facility] 3 22:23:41 73827 acetamino phen / codeine medicatio n Not available Not available Not available 09/07/2025 38043 9 RxNorm Not Available ina - External Data Service - prod 5 09:28:14 50164 acetamino phen / diphenhyd ramine medicatio n Not available Not available Not available 09/07/2025 68876 1 RxNorm Not Available formerly [facility] External Data Service - prod 5 09:28:14 Medications Name Sig Start Date Stop Date Status Note LastModified by Organization Details LastModified Time cyclobenza augusto 10 mg tablet TAKE 1 TABLET BY MOUTH DAILY AT BEDTIME NEEDED 05/05 completed Not Available Not Available Not [...] Available No t Available Vitals Date Recorded Oxygen saturation Heart rate Respiratory rate Systolic And Diastolic Provider Name and Address Organization Details Last Updated DateTime 06/10/2025 95 % 74 /min 15 /min 112/60 mm[Hg] Milka Mock MD [address], [facility] [address], [place], [address] , [place] [employer] [place] 5 10:15:08 Date Recorded Body height Body mass index (BMI) Body weight Body temperature Heart rate Provider Name and Address Organization Details Last Updated DateTime 06/10/2025 160.02 cm 28 kg/m2 30086.59 g 97.9 [degF] 74 /min Jigna Lewis MA [employer] 5 10:03:57 Social History Question Answer Notes LastModified by Organization Details LastModified Time Tobacco Smoking Status Former Smoker quit 2004 MARCIE Hdz, [employer] 05/27/2024 11:13:21 Do You Have An Advance Directive? Yes MIGRATION.030 [id number] Information not available 12/13/2022 Are You Blind Or Do You Have Difficulty Seeing? No MIGRATION.[id number] Information not available 12/13/2022 Is Blood Transfusion Acceptable In An Emergency? Yes Information not available 05/27/2024 What Is Your Level Of Caffeine Consumption? Moderate MIGRATION.030 086741 Information not available 12/13/2022 What Is Your Code Status? DNR [email or web address] Information not available 05/27/2024 In The 14 Days Before Symptom Onset, Have You Had Close Contact With A Laboratory-conf irmed COVID-19 While That Case Was Ill? No MIGRATION.030 175174 Information not available 12/13/2022 In The 14 Days Before Symptom Onset, Have You Had Close Contact With A Person Who Is Under Investigation For COVID-19 While That Person Was Ill? No MIGRATION.030 034214 Information not available 12/13/2022 Are You Deaf Or Do You Have Serious Difficulty Hearing? No MIGRATION.030 979028 Information not available 12/13/2022 What Type Of Diet Are You Following? REGULAR MIGRATION.300026 Information not available 12/13/2022 What Is The Highest Grade Or Level Of School You Have Completed Or The Highest Degree You Have Received? [id number] MIGRATION.030 685845 Information not available 12/13/2022 Do You Have An Electrostatic Air Filter? No Information not available 02/22/2023 How Many Days Of Moderate To Strenuous Exercise, Like A Brisk Walk, Did You Do In The Last 7 Days? 0 [email or web address] Information not available 05/27/2024 Have There Been Any Changes To Your Family Or Social Situation? No MIGRATION.030 750726 Information not available 12/13/2022 What Is The Fluoride Status Of Your Home? Unknown MIGRATION.300026 Information not available 12/13/2022 When Did You Quit Smoking? 16+yearssincelastc igarette Information not available 05/27/2024 Are There Any Guns Present In Your Home? No MIGRATION.030 931285 Information not available 12/13/2022 Do You Have A Humidifier? No Information not available 02/22/2023 Do You Use Insect Repellent Routinely? No MIGRATION.030 784309 Information not available 12/13/2022 Where Do You Live? SingleLevelHouse MIGRATION.300026 Information not available 12/13/2022 Advance Directive- Providers Has Reviewed Directive And Consents To Follow Them (insert Provider Name With Any Objectives In Notes Field) Yes Information not available 05/27/2024 Presence Of Domestic Violence No Information not available 05/27/2024 Guns Present In The Home? No [email or web address] Information not available 05/27/2024 Are You Able To Care For Yourself? Yes [email or web address] Information not available 05/27/2024 Are You Blind Or Do Yo Have Difficulty Seeing? No [email or web address] Information not available 05/27/2024 Are You Deaf Or Do You Have Serious Difficulty Hearing? No [email or web address] Information not available 05/27/2024 General Stress Level? Low Information not available 05/27/2024 Live Alone Of With Others? Alone [email or web address] Information not available 05/27/2024 Do You Have A Medical Power Of Acoustical Tile Carpenters Supervisor? Yes MIGRATION.0301 374802 Information not available 12/13/2022 Do You Have Moisture Problems In Your Home? No Information not available 02/22/2023 What Was The Date Of Your Most Recent Tobacco Screening? 06/10/2025 Information not available 06/10/2025 How Many Children Do You Have? 4 3 [email or web address] Information not available 05/27/2024 What Is Your Current Pack Years? 10packyears [email or web address] Information not available 05/27/2024 Do You Have Any Pets? Yes Dog [email or web address] Information not available 05/27/2024 What Is Your Relationship Status? MIGRATION.0301 864883 Information not available 12/13/2022 Do You Use Your Seat Belt Or Car Seat Routinely? Yes MIGRATION.0301 979029 Information not available 12/13/2022 Are You Sexually Active? No Information not available 05/27/2024 Do You Have Smoke And Carbon Monoxide Detectors In Your Home? Yes MIGRATION.0301 145714 Information not available 12/13/2022 Are You Passively Exposed To Smoke? No MIGRATION.0301 964753 Information not available 12/13/2022 Are There Any Smokers In Your House? No MIGRATION.0301 258483 Information not available 12/13/2022 How Much Tobacco Do You Smoke? No Was 2ppd Information not available 12/30/2024 What Types Of Sporting Activities Do You Participate In? None [email or web address] Information not available 05/27/2024 Do You Use Sunscreen Routinely? No MIGRATION.0301 550438 Information not available 12/13/2022 Has Tobacco Cessation Counseling Been Provided? No [email or web address] Information not available 05/27/2024 How Many Years Have You Smoked Tobacco? 40 Information not available 12/30/2024 Have You Recently Traveled Abroad? No MIGRATION.0301 306852 Information not available 12/13/2022 Do You Have Difficulty Walking Or Climbing Stairs? Yes Information not available 05/27/2024 Do You Have Any Dietary Restrictions? No MIGRATION.0301 049828 Information not available 12/13/2022 Sex: Female Functional Status Question Answer Note LastModified by Organizat ion Details LastModified Time Do you use any illicit or recreational drugs? No MIGRATION.44471 38813 Information not available 12/13/2022 Do you or have you ever used any other forms of tobacco or nicotine? No MIGRATION.49236 70634 Information not available 12/13/2022 What is your level of alcohol consumption? None MIGRATION.01550 87198 Information not available 12/13/2022 Are you currently employed? No Retired [email or web address] Information not available 05/27/2024 Do you have transportation difficulties? No MIGRATION.65927 56239 Information not available 12/13/2022 Are you able to walk independently without assistance or assistive devices? YESASSIST uses rollator Information not available 05/27/2024 Do you have difficulty doing errands alone? No MIGRATION.07540 95320 Information not available 12/13/2022 Are you able to care for yourself independently? Yes MIGRATION.66717 65476 Information not available 12/13/2022 Do you have difficulty dressing, bathing, grooming, or toileting? No MIGRATION.59516 26949 Information not available 12/13/2022 What is your exercise level? None [email or web address] Information not available 05/27/2024 Mental Status Question Answer Note LastModified by Organizat ion Details LastModified Time Do you feel stressed (tense, restless, nervous, or anxious, or unable to sleep at night)? [id number] MIGRATION.53904053 26 Information not available 12/13/2022 Do you have difficulty concentrating, remembering or making decisions? No MIGRATION.36661036 26 Information not available 12/13/2022 Family History Relationship Description Onset Age of this Age Resolved Age Notes LastModified by Organization Details LastModified Time Sister Chronic obstructive pulmonary disease Not available 05/15 10:57:05 Sister Malignant neoplasm of cervix uteri [email or web address] Not available 0 05/27/2024 10:57:05 Sister Malignant neoplasm of cervix uteri [email or web address] Not available 0 05/27/2024 10:57:05 Daughter Myocardial infarction MIGRATION.988 [id number] Not available 12/13/2022 22:22:25 Mother Malignant neoplasm of cervix uteri [email or web address] Not available 0 05/27/2024 10:57:05 Medical History Condition Response NERVE DISEASE N BLINDNESS N RHEUMATIC FEVER N KIDNEY STONES N BLADDER PROBLEMS N MRSA N OTHER # 1 N POLIO N LUNG DISEASE/DISORDER Y HISTORY OF DRUG ABUSE N RADIATION / CHEMOTHERAPY N COPD Y Other # 2 N BLOOD DISEASES N EAR OR HEARING PROBLEMS N MUMPS N SHINGLES N DEPRESSION (INCLUDING POST ) N BOWEL PROBLEMS N STROKE/TIA N ULCERS N BENIGN PROSTATIC HYPERPLASIA N MEASLES N HYPOTENSION N MYOCARDIAL INFARCTION N OBESITY N GERD/NAUSEA N ANEURYSM N URINARY/BLADDER/KIDNEY PROBLEMS N CORONARY ARTERY DISEASE (CAD) N ADDICTION CONCERNS N Impotence N ENDOMETRIOSIS N USE OF BLOOD THINNERS N SKIN [...] GLAUCOMA N FOOT PROBLEM N DIVERTICULITIS N SLEEP APNEA N CHICKENPOX N INFECTIOUS DISEASE N PROSTATE N HEART ARRHYTHMIA N INSOMNIA N HIGH CHOLESTEROL / HYPERLIPIDEMIA Y HYPERTHYROIDISM N EYE PROBLEMS N EDEMA N CHRONIC PAIN SYNDROME N HYPOTHYROIDISM N CONSTIPATION N CAROTID BLOCKAGE N BACK / NECK PROBLEMS N HAVE YOU BEEN HOSPITALIZED OR SEEN IN [facility] IN THE PAST YEAR ? N ATHEROSCLEROSIS [...] Brain Problems N HERPES N DEMENTIA N SEIZURES/EPILEPSY N HEADACHES/MIGRAINES N VASCULAR DISEASE N PACEMAKER N Blood Disorder N DIZZINESS N KIDNEY DISEASE Y HEART DISEASE/HEART PROBLEMS N MULTIPLE SCLEROSIS N CARDIAC ARRHYTHMIA N CANCER: SPECIFY Y Gall Stones N ATRIAL FIBRILLATION N PULMONARY EMBOLISM N AUTOIMMUNE DISEASE N [...] Pneumococcal conjugate PCV 13 1 completed MARCIE Hdz, [place] [facility] [employer] [facility] 07/29/2024 15:50:29 Past Encounters Encounter ID Performer Location Encounter Start Date Encounter Closed Date Diagnosis/Indication Diagnosis SNOMED-CT Code Diagnosis ICD10 Code Diagnosis IMO Codes Diagnosis Note [id number] Milka Mock MD [facility] Pulmonolo gy [address] [address] 06/10/2025 09:36:21 06/11/2025 13:06:30 Atelectasis 63750484 J98.11 Anti-nucle ar factor detected 629624908 R76.8 Moderate c hronic obstructive pulmonary disease 791872918 J44.9 Adenocarci noma of right lung 5340993876 8316911 C34.91 Health Concerns Section Related Observation LastModified by Organization Detai ls LastModified Time None Recorded Concern Status LastModified by Organization Details LastModified Time None Recorded Payers Encounter Date Sequence Insurance Name Policy Number Policy Forde Covered Member ID Forde Member ID Guarantor Name 06/10/2025 1 [facility] (MEDICARE REPLACEMENT/A DVANTAGE - PPO) [id number] Magdalene Wang [id number] Magdalene Wang Notes Date Note Type Note Provider Name and Address Organization Details Recorded Time 06/10/2025 text/html Primary care/Referring provider: Piter Mendoza MD Patient is here to go over her mod ACO and RUL adenocarcinoma follow up.Initial development of shortness of breath: 2011Duration of shortness of breath: 14 yearsCondition of shortness of breath: stableTiming of shortness of breath: noneFrequency: up to 2 times a dayLimits activities: yesAggravating factors: walking, vacuum cleaning, washing the dishesAlleviating factors: restModified Medical Research [place] (mMRC) Dyspnea Scale - Grade 2Grade 0 [...] noDysphagia: noEdema: noEnvironmental exposures:Nicotine smoke: 2 ppd 1369-3193 = 92 pack yearsPaint: noDye: noDust mites: [...] slight chance of dozing. Milka Mock MD [address] [place] [address], [address], [place] [facility] 06/10/2025 10:39:32 OBGyn Episode No OBEpisode recorded.
--- OUTSIDE RECORDS SUMMARY | 2025-09-08 13:13 | XMS_ITS | Clinical Summary ---
Author Organization [facility] Facility Address [address] [address] Care Team Providers Care Channel Director Name Role Phone Unavailable Primary Care Provider [...]
--- OUTSIDE RECORDS SUMMARY | 2025-09-08 13:14 | XMS_ITS | Clinical Summary ---
Author Organization [facility] Address [address] [place] [address] Phone Care Team Providers Care Steward/Stewardess Club Car Name Role Phone Piter Mendoza MD Primary [...] oral route. 2 Active ergocalciferol (VITAMIN D) 94223 UNIT Capsule 2 Active albuterol 108 (90 [...] (Adult) (1 - 1-dose 75+ series) 2022 Medicare Initial AWV [id number] 10/15/2023 Influenza Immunization (#1) 2025 Pneumococcal Immunization (5 [...] to complete this topic Insurance MEDICARE C [facility] [place] [id number] [facility] on file Care Teams Steward/Stewardess Club Car Relationship Specialty Start Date End Date Piter Mendoza MD [address] [place] [address] PCP - General Internal Medicine 04/13/23
== END 2025-09-08 11:23 | disposition home or self-care (01) ==
LOC: ANHLAB 11:23
PROVIDERS: PCP Internal Medicine; Visit Provider Internal Medicine Hematology & Oncology
DX: C34.11 Malignant neoplasm of upper lobe, right bronchus or lung (principal)
CPT/HCPCS: 36415; 80047; 80053; 85025